=== PATIENT | male | born 1950 | race Caucasian/White ===

== ENCOUNTER 2024-09-06 11:50 | Outpatient (CLI) | payer MEDICARE, BC, SELFPAY ==
--- OUTSIDE RECORDS SUMMARY | 2024-09-06 13:48 | XMS_ITS | Encounter Summary ---
Author Organization [facility] Address [facility] [place] [address] Care Team Providers Care Audio Visual Director Name Role Phone Gerald Bell MD, Robert Unavailable [phone] Trudi Carr ANP- Unavailable [phone] Mini Martell MD Unavailable [phone] Stephanie Connolly PIGMENT PRESSER Primary Care Provider [phone] Encounter Details Date Type Department Care Team (Late st Contact Info) Description 08/06/2023 MyCSosht Message Enc [facility] hospital [address] [place], [place] [phone] Stephanie Connolly FNP [address] [place], [place] [id number] Medication Social History Tobacco Use Types Packs/Day Years Used Date Smoking Tobacco: Never Smokeless Tobacco: Never Comments:Provider to financial counselor Alcohol Use Standard Drinks/Week Comments Yes 0 (1 standard drink = 0.6 oz pur e alcohol) maybe 1 per week Humiliation, Afraid, Rape, and Kick questionnair e Answer Date Recorded Fear of Current or Ex-Partner No Emotionally Abused No 07/26/2019 Physically Abused No 07/26/2019 Sexually Abused No 07/26/2019 Social Connection and Isolat ion Panel [NHANES] Answer Date Recorded Frequency of Communication w ith Friends and Family More than three times a week 07/26/2019 Frequency of Social Gatherin gs with Friends and Family Once a week 07/26/2019 Attends Restoration Services Never 07/25 Active Member of Clubs or Organizations No 07/26/2019 Attends Club or Organization Meetings Never 07/26/2019 Marital Status 07/26/2019 Overall Financial Resource Strain (CARDIA) Answe r Date Recorded Difficulty of Paying Living Expenses Not hard at all 07/26/2019 PHQ-2 Answer Date Recorded Patient Health Questionnaire-2 Score 0 12/26/2022 [facility] of Occupat ional Health - Occupational Stress Questionnaire Answer Date Recorded Feeling of Stress Not at all 07/26/2019 Exercise Vital Sign Answer Date Recorde d Days of Exercise per Week 2 days 2019 Minutes of Exercise per Session 30 min 07/26/2019 Hunger Vital Sign Answer Date Recorded Worried About Running Out of Food in the Last Ye ar Never true 07/26/2019 Ran Out of Food in the Last Year Not on file 07/26/2019 PRAPARE - Transportation Answer Date Re corded Lack of Transportation (Medical) No 07/26/2019 Lack of Transportation (Non-Medical) Not on file 07/26/2019 Sex and Gender Information Value Date Recorded Sex Assigned at Male 05/26/2024 9:59 AM CONCESSION SUPERVISOR Legal Sex Male 8:35 PM CDT Gender Identity Male 07/26/2019 3:08 PM CDT Sexual Orientation Straight 07/26/2019 3: 08 PM CDT Occupation Industry Job Start Date Job End Date Retired Not on file Not on file Not on file documented as of this encounter Functional Status * RETIRED Are you deaf or do you have serious difficulty hearing Answer Date of Assessment Author Status No 08/11/2019 2:39 PM CDT Activ e * RETIRED Are you blind or do you have serious difficulty seeing, even when wearing glasses? Answer Date of Assessment Author Status No 08/11/2019 2:39 PM CDT Activ e * Do you have serious difficulty walking or climbing stairs? Answer Date of Assessment Author Status No 08/11/2019 2:39 PM CDT Shelly Mathias RN Active * Do you have difficulty dressing or bathing? Answer Date of Assessment Author Status No 08/11/2019 2:39 PM REINAT Shelly Mathias RN Active * Because of a physical, mental, or emotional condition, do you have difficulty doing errands alone such as visiting a doctor's office or shopping? Answer Date of Assessment Author Status No 08/11/2019 2:39 PM CDT Shelly Mathias RN Active documented as of this encounter Mental Status * Because of a physical, mental, or emotional condition, do you have serious difficulty concentrating, remembering, or making decisions? Answer Entry Date Author Status No 08/11/2019 2:39 PM CDT Shelly Mathias RN Active documented in this encounter Progress Notes * MOSHE Blanchard - 08/06/2023 12:06 PM CDT They do not raise BS levels * Ranjana Yap LPN - 08/06/2023 12:01 PM CDT Please review/advise. * MOSHE Blanchard - 08/06/2023 10:28 AM CDT Doxepin causes increased glucose. Why was this rx for him and who gave it to him. * Ranjana Yap LPN - 08/06/2023 10:16 AM CDT Please review/advise. documented in this encounter Plan of Treatment Upcoming Encounters Date Type Department Care Team (Late st Contact Info) Description 09/14/2024 9:20 AM CDT Office Visit [address] [place], [place] [phone] Stephanie Connolly FNP [address] [place] [address] [place] [address] 01/05/2025 12:40 PM CDT Office Visit [facility] [place] [address] [place] [phone] Mini Martell MD [address] [place] [address] 09/05/2025 10:30 AM CDT Office Visit [facility] [address] [facility] [place] [phone] Trudi Carr, ANP-BC [address] [facility] [address] [place] [address] documented as of this encounter Goals Goal Patient Goal Type Associated Problems Recent Progress Patient-Stated? Author Return home with General No Peggy Kellogg, DORMITORY SUPERVISOR Return home with General No Peggy Kellogg, DORMITORY SUPERVISOR documented as of this encounter Visit Diagnoses Not on filedocumented in this encounter Additional Health Concerns Assessment Noted Time PHQ-9 Depression Total Score: 1 12/27/19 21 11:31 AM CDT documented as of this encounter Care Teams Audio Visual Director Relationship Specialty Start Date End Date Stephanie Connolly FNP [address] [place] [address] PCP - General NURSE PRACTITIONER 01/05/18 Guanakito Duarte MD [place] Chute Tapper CARDIOVASCULAR DISEASE 01/15/17 Trudi Carr, ANP-BC [address] [facility] [address] [place] [address] NURSE PRACTITIONER 01/15/17 Mini Martell MD [address] [place] [address] NEPHROLOGY 04/16/17 documented as of this encounter
--- OUTSIDE RECORDS SUMMARY | 2024-09-06 13:48 | XMS_ITS | Encounter Summary ---
Author Organization [facility] Address [facility] [place] [address] Care Team Providers Care Traffic Assistant Name Role Phone Gerald Bell MD, Robert Unavailable [phone] Trudi Carr ANP- Unavailable [phone] Mini Martell MD Unavailable [phone] Stephanie Connolly CONCRETE VIBRATOR OPERATOR Primary Care Provider [phone] Encounter Details Date Type Department Care Team (Late st Contact Info) Description 10/27/2018 Hospital Follow-up Call [facility] Med/Surg [address] [place] [address] Stephanie Qiu, RN Social History Tobacco Use Types Packs/Day Years Used Date Smoking Tobacco: Never Smokeless Tobacco: Never Alcohol Use Standard Drinks/Week Comments Yes 1.7 (1 standard drink = 0.6 oz p ure alcohol) 1-2 drinks weekly Sex and Gender Information Value Date Recorded Sex Assigned at Male 05/26/2024 9:59 AM TIMBER ROBBER Legal Sex Male 8:35 PM CDT Gender [...] Answer Date of Assessment Author Status No 10/22/2018 7:51 PM CDT Activ e * RETIRED Are you blind or do you have serious difficulty seeing, even when wearing glasses? Answer Date of Assessment Author Status No 10/22/2018 7:51 PM CDT Activ e * Do you have serious difficulty walking or climbing stairs? Answer Date of Assessment Author Status No 10/22/2018 7:51 PM REINAT Shelly Mathias RN Active * Do you have difficulty dressing or bathing? Answer Date of Assessment Author Status No 10/22/2018 1:45 PM Shelly Maier RN Active * Because of a physical, mental, or emotional condition, do you have difficulty doing errands alone such as visiting a doctor's office or shopping? Answer Date of Assessment Author Status No 10/22/2018 7:51 PM Shelly Maier RN Active documented as of this encounter Mental Status * Because of a physical, mental, or emotional condition, do you have serious difficulty concentrating, remembering, or making decisions? Answer Entry Date Author Status No 10/22/2018 7:51 PM Shelly Maier RN Active documented in this encounter Plan of Treatment Upcoming Encounters Date Type Department Care Team (Late st Contact Info) Description 09/14/2024 9:20 AM CDT Office Visit [facility] [address] [facility] [place] [address] Stephanie Connolly, [facility] [address] [place] [address] 01/05/2025 12:40 PM CDT Office Visit [facility] [address] [phone] Mini Martell MD [address] [place] [address], [address] [address] 09/05/2025 10:30 AM CDT Office Visit [facility] [place] [address] Trudi Carr, ANP- [address] [facility] [address] [address] documented as of this encounter Visit Diagnoses Not on filedocumented in this encounter Care Teams Traffic Assistant Relationship Specialty Start Date End Date Stephanie Connolly FNP [address] [place] [address] PCP - General NURSE PRACTITIONER 01/05/18 Guanakito Duarte MD [place] Gis Web Developer CARDIOVASCULAR DISEASE 01/15/17 Trudi Carr, [facility]- [address] [place] [address] [address] [place] [phone] NURSE PRACTITIONER 01/15/17 Mini Martell MD [address] [place] [address] NEPHROLOGY 04/16/17 documented as of this encounter
--- OUTSIDE RECORDS SUMMARY | 2024-09-06 13:48 | XMS_ITS | Encounter Summary ---
Author Organization [facility] Address [address] [place] [address] Care Team Providers Care Clerical Methods Analyst Name Role Phone Gerald Bell MD, Robert Unavailable [phone] Trudi Carr Unavailable Mini Martell MD Unavailable [phone] Stephanie Connolly RAW PRODUCTS DIRECTOR Primary Care Provider [phone] Reason for Visit * Reason Onset Date Comments Forms 09/06/2024 Encounter Details Date Type Department Care Team ([facility] st Contact Info) Description 09/06/2024 Telephone [facility] [address] [place] [address] Trudi Carr ANP-BC [address] [facility] [address] [place] [address] Forms Social History Tobacco Use Types Packs/Day Years Used Date Smoking Tobacco: Never Smokeless Tobacco: Never Comments:Provider to educational guidance counselor Alcohol Use Standard Drinks/Week Comments Not Currently 0 (1 standard drink = 0.6 oz [...] and Family Once a week 07/26/2019 Attends Confucianist Services Never 07/25 Active Member of Clubs or Organizations No 07/26/2019 Attends Club or Organization Meetings Never 07/26/2019 Marital Status 07/26/2019 Overall Financial Resource Strain (CARDIA) Answe r Date Recorded Difficulty of Paying Living Expenses Not hard at all 07/26/2019 PHQ-2 Answer Date Recorded Patient Health Questionnaire-2 Score 0 03/03/2024 [facility] of Occupat ional Health - Occupational Stress [...] Sex Assigned at Male 05/26/2024 9:59 AM SLEEVE SETTER LOCKSTITCH Legal Sex Male 8:35 PM CDT Gender [...] Assessment Author Status No 08/11/2019 2:39 PM Shelly Maier RN Active * Because of a physical, mental, or emotional condition, do you have difficulty doing errands alone such as visiting a doctor's office or shopping? Answer Date of Assessment Author Status No 08/11/2019 2:39 PM Shelly Maier RN Active documented as of this encounter Mental Status * Because of a physical, mental, or emotional condition, do you have serious difficulty concentrating, remembering, or making decisions? Answer Entry Date Author Status No 08/11/2019 2:39 PM Shelly Maier RN Active documented in this encounter Progress Notes * Peggy Mckeon LPN - 09/06/2024 1:43 PM CDT Faxed to [phone]. No confirmation yet, faxed x 2. * Farheen Vyas - 09/06/2024 1:22 PM CDT [facility] called back and she gave me a different fax number of [phone], I told her I would give this to the nurse. * Farheen Vyas - 09/06/2024 12:28 PM CDT I called [facility] and left a message asking to call us back with a different fax number as the one gave to us is not working. * Peggy Mckeon LPN - 09/06/2024 11:18 AM CDT I have faxed this AM multiple times to [phone] per [place] fax cover sheet. This fax number does not work. I called and their automated VM system gives the same fax number as above. I called [phone] and left a voice message for someone to call me back with a fax number that will work. * Farheen Vyas - 09/06/2024 10:41 AM CDT [facility] called wanting to know if we have received the forms for the pt to have surgery next week, I told her that I didn't see anything faxed in and to refax it to [phone] and she understood. documented in this encounter Plan of Treatment Upcoming Encounters Date Type Department Care Team (Late st Contact Info) Description 09/14/2024 9:20 AM CDT Office Visit [address] [place] [address] Stephanie Connolly, [address] [place], [place] [phone] 01/05/2025 12:40 PM CDT Office Visit [facility] [address] [address] Mini Martell MD [address] [place] [address] 09/05/2025 10:30 AM CDT Office Visit [facility] [place] [phone] Trudi Carr, ANP- [address] [facility] [address] [phone] documented as of this encounter Goals Goal Patient Goal Type Associated Problems Recent Progress Patient-Stated? Author Return home with General No Peggy Kellogg MSW Return home with General No Peggy Kellogg MSW documented as of this encounter Visit Diagnoses Not on filedocumented in this encounter Additional Health Concerns Assessment Noted Time PHQ-9 Depression Total Score: 0 03/03/20 24 10:54 AM CDT documented as of this encounter Care Teams Clerical Methods Analyst Relationship Specialty Start Date End Date Stephanie Connolly FNP [address] [place] [address] PCP - General NURSE PRACTITIONER 01/05/18 Guanakito Duarte MD [place] Taste Tester CARDIOVASCULAR DISEASE 01/15/17 Trudi Carr, [facility]- [address] [place] [address] [address] [place] [address] NURSE PRACTITIONER 01/15/17 Mini Martell MD [address] [place] [address] NEPHROLOGY 04/16/17 documented as of this encounter
--- OUTSIDE RECORDS SUMMARY | 2024-09-06 13:48 | XMS_ITS | Encounter Summary ---
Author Organization [facility] Address [address] [place] [address] Care Team Providers Care Account Services Analyst Name Role Phone Gerald Bell MD, Robert Unavailable [phone] Trudi Carr Unavailable [phone] Mini Martell MD Unavailable [phone] Stephanie Connolly LOFTER Primary Care Provider [phone] Reason for Visit * Reason Onset Date Comments Record Request 09/06/2024 Encounter Details Date Type Department Care Team ([facility] st Contact Info) Description 09/06/2024 Telephone [facility] [address] [place] [address] Trudi Carr ANP-BC [address] [facility] [address] [place] [address] Record Request Social History Tobacco Use Types Packs/Day Years Used Date Smoking Tobacco: Never Smokeless Tobacco: Never Comments:Provider to school counsellor Alcohol Use Standard Drinks/Week Comments Not Currently [...] and Family Once a week 07/26/2019 Attends Tenriism Services Never 07/25 Active Member of Clubs or Organizations No 07/26/2019 Attends Club or Organization Meetings Never 07/26/2019 Marital Status 07/26/2019 Overall Financial Resource Strain (CARDIA) Answe r Date Recorded Difficulty of Paying Living Expenses Not hard at all 07/26/2019 PHQ-2 Answer Date Recorded Patient Health Questionnaire-2 Score 0 03/03/2024 [facility] of Occupat ional Health - Occupational Stress [...] Sex Assigned at Male 05/26/2024 9:59 AM MORTGAGE LOAN REVIEWER Legal Sex Male 8:35 PM CDT Gender [...] PM CDT Shelly Mathias RN Active * Because of [...] documented in this encounter Progress Notes * Farheen Vyas - 09/06/2024 1:32 PM CDT [facility]ressa [facility]/ [facility] called wanting to know if I could fax over the pts EKG to [phone], EKG has been faxed. documented in this encounter Plan of Treatment Upcoming Encounters Date Type Department Care Team (Late st Contact Info) Description 09/14/2024 9:20 AM CDT Office Visit [facility] of [facility] [address] [facility] [place] [address] Stephanie Connolly, [address] [place] [address] 01/05/2025 12:40 PM CDT Office Visit [facility] [address] [phone] Mini Martell MD [address] [place] [address], [address] [address] 09/05/2025 10:30 AM CDT Office Visit [facility] [place] [phone] Trudi Carr, ANP- [address] [facility] [address] [place] [phone] documented as of this encounter Goals Goal Patient Goal Type Associated Problems Recent Progress Patient-Stated? Author Return home with General No Bess Peggy M, THERMO CEMENTING FOLDER OPERATOR Return home with General No StephendanePeggy, THERMO CEMENTING FOLDER OPERATOR documented as of this encounter Visit Diagnoses Not on filedocumented in this encounter Additional Health Concerns Assessment Noted Time PHQ-9 Depression Total Score: 0 03/03/20 10:54 AM CDT documented as of this encounter Care Teams Account Services Analyst Relationship Specialty Start Date End Date Stephanie Connolly FNP [address] [place], [place] [phone] PCP - General NURSE PRACTITIONER 01/05/18 Guanakito Duarte MD [place] Car Dumper CARDIOVASCULAR DISEASE 01/15/17 Trudi Carr, ANP- [address] [place] [address] [address] [place] [address] NURSE PRACTITIONER 01/15/17 Mini Martell MD [address] [place] [address] NEPHROLOGY 04/16/17 documented as of this encounter
--- OUTSIDE RECORDS SUMMARY | 2024-09-06 13:48 | XMS_ITS | Encounter Summary ---
Author Organization [facility] Address [facility] [place] [address] Care Team Providers Care Air Cargo Specialist Name Role Phone Gerald Bell MD, Robert Unavailable [phone] Trudi Carr [facility]- Unavailable [phone] Mini Martell MD Unavailable [phone] Stephanie Connolly PHARMACY RESOURCE TECH Primary Care Provider [phone] Encounter Details Date Type Department Care Team (Late st Contact Info) Description 10/16/2018 Prep for Procedure [facility] [id number] [place] [address] [place] [address] [facility] [place], [facility] [address] [place] [address] Social History Tobacco Use Types Packs/Day Years Used Date Smoking Tobacco: Never Smokeless Tobacco: Never Alcohol Use Standard Drinks/Week Comments Yes 1.7 (1 standard drink = 0.6 oz p ure alcohol) 1-2 drinks weekly Sex and Gender Information Value Date Recorded Sex Assigned at Male 05/26/2024 9:59 AM CEO NA Legal Sex Male 8:35 PM CDT Gender Identity Male 07/26/2019 3:08 PM CDT Sexual Orientation Straight 07/26/2019 3: 08 PM CDT Occupation Industry Job Start Date Job End Date Retired Not on file Not on file Not on file documented as of this encounter Plan of Treatment Upcoming Encounters Date Type Department Care Team (Late st Contact Info) Description 09/14/2024 9:20 AM CDT Office Visit [facility] [address] [place] [address] Stephanie Connolly, [facility] [address] [place] [address] 01/05/2025 12:40 PM CDT Office Visit [facility] [address] [address] Mini Martell MD [address] [facility], [address] [address] 09/05/2025 10:30 AM CDT [facility] [address] [place] [phone] Trudi Carr, [facility]- [address] [facility] [address] [place] [address] documented as of this encounter Results * ECG 12-Lead (07/20/2019 12:10 PM CDT) 07/20/2019 12:1 0 PM CDT Narrative [facility] RAD - 07/21/2019 8:07 AM CDT [facility] Test Date: 2019-07-20 Pat Name: KARTHIK SPENCE Department: Room: Gender: Male Diesel Mechanic: : 1950 Requested By: DWAYNE OLVERA Order Number: [id number] Reading MD: Guanakito Palencia Measurements Intervals [place] Rate: 80 P: CO: 0 QRS: -23 QRSD: 90 T: 30 QT: 390 QTc: 453 Interpretive Statements ATRIAL FIBRILLATION BORDERLINE LEFT AXIS DEVIATION [QRS AXIS < -20] NONSPECIFIC T-WAVE ABNORMALITY ABNORMAL RHYTHM ECG Compared to ECG 10/26/2018 13:58:32 Ventricular premature complex(es) no longer present Aberrant conduction of supraventricular beat(s) no longer present T-wave abnormality still present Procedure Note Guanakito Palencia MD - 07/21/2019 [facility] Test Date: 2019-07-20 Pat Name: KARTHIK SPENCE Department: Room: Gender: Male Diesel Mechanic: : 1950 Requested By: DWAYNE OLVERA Order Number: [id number] Reading MD: Guanakito Palencia Measurements Intervals [place] Rate: 80 P: CO: 0 QRS: -23 QRSD: 90 T: 30 QT: 390 QTc: 453 Interpretive Statements ATRIAL FIBRILLATION BORDERLINE LEFT AXIS DEVIATION [QRS AXIS < -20] NONSPECIFIC T-WAVE ABNORMALITY ABNORMAL RHYTHM ECG Compared to ECG 10/26/2018 13:58:32 Ventricular premature complex(es) no longer present Aberrant conduction of supraventricular beat(s) no longer present T-wave abnormality still present us Dwayne Olvera MD ECG ORDERABLES Final Result Performing Organization Address [facility] Co de Phone Number [facility] * MRSA SCREENING (07/20/2019 11:05 AM CDT) SPEC DESCRIPTION NASAL 07/20/2019 10:56 AM CDT [facility] SPECIAL REQUESTS NO SPECIAL REQUEST 07/20/2019 10:56 AM CDT [facility] CULTURE RESULT NO METHICILLIN RESISTANT STAPH AUREUS ISOLATED 07/27/2019 7:26 AM CDT [facility] SPECIMEN FROM INTERNAL NOSE / Unknown 07/20/2019 11:05 AM CDT 07/20/2019 11:06 AM CDT us Dwayne Olvera MD MICROBIOLOGY - GENERAL ORDERABLE S Final Result Performing Organization Address [facility]/ZIP Co de Phone Number [facility] [address] [place] [address], documented in this encounter Visit Diagnoses Diagnosis Preop testing- Primary Preoperative examination, unspecified Preop testing Preoperative examination, unspecified documented in this encounter Care Teams Air Cargo Specialist Relationship Specialty Start Date End Date Stephanie Connolly FNP [address] [place] [phone] PCP - General NURSE PRACTITIONER 01/05/18 Guanakito Duarte MD [place] Mixing Operator CARDIOVASCULAR DISEASE 01/15/17 Trudi Carr, [facility]- [address] [place] [address] [address] [place] [address] NURSE PRACTITIONER 01/15/17 Mini Martell MD [address] [place] [address] NEPHROLOGY 04/16/17 documented as of this encounter
--- OUTSIDE RECORDS SUMMARY | 2024-09-06 13:48 | XMS_ITS | Encounter Summary ---
Author Organization [facility] Address [facility] [place] [address] Care Team Providers Care Steam Trap Man Name Role Phone Gerald Bell MD, Robert Unavailable [phone] Trudi Carr ANP- Unavailable [phone] Mini Martell MD Unavailable [phone] Stephanie Connolly GRADUATE STUDENT INSTRUCTOR Primary Care Provider [phone] Encounter Details Date Type Department Care Team (Latest Contact Info) Description 01/08/2024 MyChart Message Enc [facility] [address] [address] Wisam Hubbard MD [address] [place] [address] Lab service for polyp testing Social History Tobacco Use Types Packs/Day Years Used Date Smoking Tobacco: Never Smokeless Tobacco: Never 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 Alcohol Use Standard Drinks/Week Comments Yes [...] and Family Once a week 07/26/2019 Attends Anabaptism Services Never 07/25 Active Member of Clubs or Organizations No 07/26/2019 Attends Club or Organization Meetings Never 07/26/2019 Marital Status 07/26/2019 Overall Financial Resource Strain (CARDIA) Answe r Date Recorded Difficulty of Paying Living Expenses Not hard at all 07/26/2019 PHQ-2 Answer Date Recorded Patient Health Questionnaire-2 Score 0 12/30/2023 [facility] - Occupational Stress [...] Sex Assigned at Male 05/26/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 Sex Male 8:35 PM CDT Gender [...] Author Status No 08/11/2019 2:39 PM REINAT Stew, Shelly L, RN Active * Because of a physical, [...] Mathias RN Active documented in this encounter Plan of Treatment Upcoming Encounters Date Type Department Care Team (Late st Contact Info) Description 09/14/2024 9:20 AM CDT Office Visit [facility] [address] [facility] [address] [place], [place] [phone] Stephanie Connolly, [address] [place] [address] 01/05/2025 12:40 PM CDT Office Visit [facility] [address] [phone] Mini Martell MD [address] [place] [id number] 09/05/2025 10:30 AM CDT Office Visit [facility] [place] [address] Trudi Carr, ANP- [address] [place] [phone] documented as of this encounter Goals Goal [...] documented as of this encounter Care Teams Steam Trap Man Relationship Specialty Start Date End Date Stephanie Connolly FNP [address] [place] [address] PCP - General NURSE PRACTITIONER 01/05/18 Guanakito [place]arte MD [place] [facility] Clerk CARDIOVASCULAR DISEASE 01/15/17 Trudi Carr, [facility]- [address] [facility] [address] [place] [phone] NURSE PRACTITIONER 01/15/17 Mini Martell MD [address] [place] [address] NEPHROLOGY 04/16/17 documented as of this encounter
--- OUTSIDE RECORDS SUMMARY | 2024-09-06 13:48 | XMS_ITS | Continuity of Care Document ---
Author Organization [facility] Address [address] [place] [address] Phone Care Team Providers Care Wafer Abrading Machine Tender Name Role Phone Denis Rouse MD Unavailable Unavailable Allergies, Adverse Reactions, Alerts Substance Reaction Status Criticality No Known Allergies Active No Inform ation Medications Medication Instructions Dosage Effective Dates (start - stop) Status Comments diclofenac 0.1 % eye drops Instill 1 drop in the operated eye TID x 4 weeks - Active prednisolone acetate 1 % eye drops,suspension instill 1 drop in the operated eye QID x 1 week, TIDx 1 week, BID x 1 week then Qday x 1 week then stop - Active amlodipine 10 mg tablet - Active allopurinol 100 mg tablet - Active aspirin 81 mg tablet,delayed release - Active diltiazem ER 120 mg capsule,extended release - Active furosemide 40 mg tablet - Active glyburide micronized 3 mg tablet - Active losartan 50 mg tablet - Active metformin 500 mg tablet - Active Nephrocaps 1 mg capsule - Active Ocuvite 150 mg-30 unit-5 mg-150 mg capsule - Active omega-3 acid ethyl esters 1 gram capsule - Active pravastatin 40 mg tablet - Active Vigamox 0.5 % eye drops Instill 1 drop in the operated eye QID x 1 week, and then TID until bottle runs out - No Longer Active Procedures Procedure Date No Charge Refraction Post-op Follow-up Visit Post-op Follow-up Visit Remove Cataract, Post Op Care 7 Remove Cataract, Insert Lens,Comanaged F IOLMaster-Professional No Charge Refraction Post-op Follow-up Visit Post-op Follow-up Visit Remove Cataract, Post Op Care 6 Remove Cataract, Insert Lens,Comanaged D IOLMaster-Professional No Charge Refraction IOLMaster-Technical Office/outpatient Visit, Est No Charge Refraction Eye Exam, New Patient Advance Directives Directive Yes / No Effective Date File Name No Information Encounters Encounter Description Practice Location Reason(s) For Visit Diagnoses Date Provider Providers Copied on Encounter [facility], [address] [place] [address] [address], [place], [place], [id number], tel:[phone] SEC [place] Professional 1 month post op (chief complaint) Surgery follow-up examination 7 Nasim Barrios. [address], [facility] [address], [place], [place], [address], [place]. tel:[phone] [facility], [address] [place] [address] [address], [place], [place], [address], [place] tel:[phone] SEC [place] Professional 1 wk CAT PO (chief complaint) Surgery follow-up examination 7 Nasim Barrios. [address], [address], [place], [place], [address], [place]. tel:[phone] [facility], [address], [place], [place], [address], [place] tel:[phone] [place] Professional Post-Op (chief complaint) No Information 7 Joselyn Palafox. [address], [address], [place], [place], [address], [place]. tel:[phone] Referring Provider: Denis Bernal, [address], [place], [address] . tel:[phone] [facility], [address], [place], [place], [address], [place] tel:[phone] [facility] No Information 7 Nasim Brarios. [address], [place], [address], [place]. tel:[phone] Referring Provider: Denis Bernal, [address], [place], [address] . tel:[phone] [facility], [address], [place], [place], [address], [place] tel:[phone] SEC Spencer [address] No Information 7 Nasim Barrios. [address], [place], [address], [place]. tel:[phone] [facility], [address], [place], [place], [address], [place] tel:[phone] SEC Bimal [address] No Information 0 7 Nasim Barrios. [address], [place], [address], [place]. tel:[phone] [facility], [address], [place], [place], [address], [place] tel:[phone] SEC Amrit MCKEON Professional 1 month post op (chief complaint) No Information 7 Nasim Barrios. [address], [place], [address], [place]. tel:[phone] [facility], [address], [place], [place], [address], tel:[phone] SEC [place] Professional 1 wk PO (chief complaint) No Information 7 Joselyn Palafox. [address], [place], [place], [address], . tel:[phone] Referring Provider: Denis Bernal, [address], [place], [address] . tel:[phone] [facility], [address], [place], [place], [address], tel:[phone] SEC Amrit [place] Professional 1 day PO PCIOL (chief complaint) No Information 6 Nasim Barrios. [address], [place], [address], . tel:[phone] Referring Provider: Denis Bernal, [address], [place], [address] . tel:[phone] [facility], [address], [place], [place], [address], [place] tel:[phone] [facility] No Information 6 Nasim Barrios. [address], [place], [address], . tel:[phone] Referring Provider: Denis Bernal, [address] [place] [place], [address] . tel:[phone] [facility], [address], [place], [place], [address], [place] tel:[phone] SEC Spencer N Ty No Information 6 Nasim Barrios. [address], [place], [address], [place]. tel:[phone] Office/outpat ient Visit, Est [facility], [address], [place], [place], [address], [place] tel:[phone] SEC [place] Professional Cataract evaluation (chief complaint) No Information 6 Nasim Barrios. [address], [place], [address], [place]. tel:[phone] Referring Provider: Denis Bernal, [address], [place], [address] . tel:[phone] [facility], [address], [place], [place], [address], [place] tel:[phone] SEC [place] Professional blurry vision (chief complaint) No Information 6 Nasim Barrios. [address], [facility] [place], [address], [place]. tel:[phone] [facility], [address], [place], [place], [address], [place] tel:[phone] SEC Bimal Crawford No Information 6 Nasim Barrios. [address], [place], [address], [place]. tel:[phone] Family History Family Member Type Diagnosis Age At Onset Problem (finding) Family history of Diabe hailee mellitus Sister Problem (finding) crossed eyes Payers Payer name Insurance type Covered green party ID Authoriza tion(s) No Information Social History Type Description Quantity Date Captured Comments Alcohol Use Details Caffeine Use Details 2 cups per day Tobacco Use Status No Information Smoking Status Never smoker Sex Male Chief Complaint And Reason For Visit From encounter dated '07/19/2016 10:15'. 1 month post op (chief complaint). Description: The 66 year old male presents for 1 month post op in the left eye. Pt states he is not having any problems. Pt is currently using Diclofenac TID OS, and Pred QD OS. Pt denies use of eye drops OD. Reason For Referral Reason For Referral No Information History Of Present Illness Encounter Date Complaint History Of Prese nt Illness 1 month post op The 66 year old male presents for 1 month post op in the left eye. Pt states he is not having any problems. Pt is currently using Diclofenac TID OS, and Pred QD OS. Pt denies use of eye drops OD. 1 wk CAT PO The 66 year old male presents for 1 wk CAT PO in the left eye. Pt has Hx of PCIOL OU, Hypertension, and DM type 2. Pt currently using Pred TID, Vigamox QID, and Diclofenec TID. PO instructions were explained and understood by pt. Pt reports no pain, irritation, or discomfort OU. Pt reports his BS was 222 yesterday. Post-Op The 66 year old male presents for a 1 day post op CE OS. Patient is using Pred qid, Vigamox qid OS and Diclofenac tid OS. Patient denies any pain or discomfort. 1 month post op The 66 year old male presents for 1 month post op in the right eye. CE OD 05-07-16. Pt reports no problems with vision OD other than slight glare. Pt stopped using post op drops yesterday. Pt would like to proceed with CE OS due to glare and decreased vision. 1 wk PO The 66 year old male presents for 1 wk PO in the right eye. Pt using Vig, PF1%, and Diclo OD TID. Pt is NIDDM II. Pt states no VA, pain, or discomfort complaints. 1 day PO PCIOL The 66 year old male presents for 1 day PO PCIOL in the right eye. DM II NID BS 270 this AM. Pt using Vigamox and Pred QID OD and Diclo TID OD. Pt states OD seems to be doin gok. States no pain, irritation or discomfort OD Cataract evaluation The 65 year old male presents for Cataract evaluation ou per Dr. Hughes. Patient c/o hard to focus with OD and c/o decreased vision OD. Patient is a DM and BS was 177. blurry vision The 65 year old male presents for a cataract evaluation per Dr. Hughes. Patient c/o blurry vision OD. Patient states OD seems a little different then OS. Patient is a Type II diabetic and BS was 153 yesterday. Functional Status Date Functional Assessmen t No Information Instructions Date Instruction Bro jones Impression/Plan - 1 month s/p Phaco IOL OS:- Patient has healed well.- All post operative medications are finished.- Vision is good and IOP is stable.- Patient will return to Jairon Hughes OD for updated glasses and regularly scheduled visits. Follow up - Return t o Jairon Hughes OD for regularly scheduled visits Impression/Plan - On e week PO s/p Phaco with IOL OS:- IOL in good position; healing well.- Patient advised they no longer need to wear the shield over the eye at bedtime.- Medication instillation and post op instructions reviewed.- Patient will return in 3 weeks or sooner with problems. Follow up - Return to clinic as scheduled as scheduled Related to Surge ry follow-up examination Impression/Plan - 1 day post op Phaco with PCIOL OS, discussed post op instructions and medication use. Return to clinic as scheduled Related to Surgery follow-up examination Follow up - as scheduled Related to Surgery follow-up examination Follow up - Proceed with OS CE as scheduled Impression/Plan - 1 month s/p Phaco IOL OD. Patient has healed well. All post operative medications are finished. Vision is good and IOP is stable. Patient elects to proceed with OS CE as scheduled. Impression/Plan - Go od post op results after CE OD. Continue post op drops as instructed. Pt reports trauma to OD several years ago. Patient states OD has always been blurred. Pt aware he might have more glare with OD due to scar. Return to clinic as scheduled or sooner with any problems. Follow up - as scheduled Impression/Plan - On e Day Post Op s/p Phaco with IOL OD in good position. Patient healing well. Medication instillation, shield use and restrictions reviewed with patient. Return to clinic as scheduled or sooner with problems. Follow up - Return to clinic as scheduled Impression/Plan - Ca taract OD>OS accounts for patient's visual complaints. Discussed all risks, benefits and alternatives pertaining to cataract surgery. The procedure and recovery from cataract extraction were discussed. Recommend phacoemulsification with intraocular lens implant. Lifestyle lens options discussed. Explained due to previous ocular injury with corneal scar OD patient is not a good candidate for a premium IOL. Astigmatism OD is likely related to corneal scar and is likely irregular. The possibility that patient may still need to wear glasses to correct astigmatism and/or for reading vision following surgery reviewed and understood by patient. 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 Ocular and systemic benefits of good blood sugar control discussed with patient. Cataracts OU (OD>OS) - Discussed the cataract in both eyes with patient. Patient states the vision was recently decreased OD when he saw Dr. Hughes in clinic. However, the patient states that he had recently had the flu and as a result his blood glucose was very low and then very high. Now that he is feeling better and glucose is stabilized the patient states that his vision is back to normal. He does have decreased vision on glare testing OD today that would qualify the patient for cataract surgery whenever he is ready. The patient elects to wait on cataract surgery at this time. Patient will return to Dr. Hughes for regularly scheduled visits and may return here for repeat evaluation at any time. Follow up - Return to Jairon grace OD Assessments Type Assessment Date assessment Surgery follow-up examination Emiliano Patient Care Teams Name Effective Dates (start - stop) Status Members No Information
--- OUTSIDE RECORDS SUMMARY | 2024-09-06 13:48 | XMS_ITS | Encounter Summary ---
Author Organization [facility] Address [facility] [place] [address] Care Team Providers Care Digital Imaging Technician Name Role Phone Gerald Bell MD, Robert Unavailable [phone] Trudi Carr [facility]- Unavailable [phone] Mini Martell MD Unavailable [phone] Stephanie Connolly [employer] Primary Care Provider [phone] Encounter Details Date Type Department Care Team (Late st Contact Info) Description 10/16/2018 Pre-Procedure Call [facility] [address] [place] [address] [place] [address] [facility] [address] [place] [address] Social History Tobacco Use Types Packs/Day Years Used Date Smoking Tobacco: Never Smokeless Tobacco: Never Alcohol Use Standard Drinks/Week Comments Yes 1.7 (1 standard drink = 0.6 oz p ure alcohol) 1-2 drinks weekly Sex and Gender Information Value Date Recorded Sex Assigned at Male 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/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 Sex Male 8:35 PM CDT [...] Description 09/14/2024 9:20 AM CDT Office Visit [facility] [address] [place] [address] Stephanie Connolly FNP [address] [place] [address] 01/05/2025 12:40 PM CDT Office Visit [facility] [address] [phone] Mini Martell MD [address] [place] [id number] 09/05/2025 10:30 AM CDT Office Visit [facility] [address] [phone] Trudi Carr ANP-BC [address] [place] [phone] documented as of this encounter Visit Diagnoses Not on filedocumented in this encounter Care Teams Digital Imaging Technician Relationship Specialty Start Date End Date Stephanie Connolly FNP [address] [facility] [place] [address] PCP - General NURSE PRACTITIONER 01/05/18 Guanakito Duarte MD [employer] Counter Clerk CARDIOVASCULAR DISEASE 01/15/17 Trudi Carr ANP-BC [address] [place] [phone] NURSE PRACTITIONER 01/15/17 Mini Martell MD [address] [place] [id number] NEPHROLOGY 04/16/17 documented as of this encounter
--- OUTSIDE RECORDS SUMMARY | 2024-09-06 13:48 | XMS_ITS | Clinical Summary ---
Author Organization [facility] Address [facility] [place] [address] Care Team Providers Care Diagnostic Sales Specialist Name Role Phone Gerald Bell MD, Robert Unavailable [phone] Trudi Carr ANP- Unavailable [phone] Mini Martell MD Unavailable [phone] Stephanie Connolly PHOTOENGRAVING PROOFER APPRENTICE Primary Care Provider [phone] Allergies No known active allergies Medications B-D ULTRA-FINE 33 LANCETS MiscIndications: Type 2 diabetes mellitus with stage 3 chronic kidney disease, without long-term current use of insulin ([facility]) lancets 33 gauge miscellaneous miscuse as directed to test blood sugars BID; Diagnosis: DM type II; 250.00 200 each 2 022 Active Glucose Blood test stripIndications :Type 2 diabetes mellitus with stage 3 chronic kidney disease, without long-term current use of insulin, unspecified whether stage 3a or 3b CKD ([facility]) 1 strip by Other route 2 (two) times daily. Use to check blood sugar 2 times a day. DX: E11.9 200 strip 2 022 Active Vitamin D3 (VITAMIN D) 50 mcg tablet Take 1 tablet (50 mcg total) by mouth daily. Active Multiple Vitamins-Mineral s (VITEYES AREDS FORMULA OR) Take 2 tablets by mouth daily. Active carvedilol (COREG) 3.125 MG tabletIndication s:Atrial fibrillation, unspecified type ([facility] HHS/HCC) take 1 tablet twice a day 180 tablet 3 024 Active ELIQUIS 5 MG tabletIndication s:Atrial fibrillation, unspecified type ([facility]/HCC) take 1 tablet twice a day 180 tablet 3 024 Active metFORMIN ER (GLUCOPHAGE-XR) 500 MG 24 hr tabletIndication s:Type 2 diabetes mellitus with hyperglycemia, without long-term current use of insulin ([facility]/H[facility]) TAKE 2 TABLETS DAILY BEFORE SUPPER 180 tablet 3 024 Active pravastatin (PRAVACHOL) 80 MG tabletIndication s:Mixed hyperlipidemia TAKE 1 TABLET EVERY EVENING 90 tablet 3 024 Active diclofenac sodium (VOLTAREN) 1 % gelIndications:O steoarthritis of both knees, unspecified osteoarthritis type APPLY 2 GRAMS TO THE AFFECTED AREA TOPICALLY FOUR TIMES A DAY NEEDED 700 g 1 024 Active FARXIGA 10 MG tabletIndication s:CKD (chronic kidney disease) stage 4, GFR 15-29 ml/min ([facility]/HCC) TAKE 1 TABLET DAILY 90 tablet 3 025 Active gabapentin (NEURONTIN) 100 MG capsuleIndicatio ns:Peripheral polyneuropathy TAKE 1 CAPSULE AT BEDTIME FOR NEUROPATHY PAIN. MAY INCREASE TO 2 CAPSULES AT BEDTIME IN 2 WEEKS IF NEEDED 180 capsule 025 Active traZODone (DESYREL) 100 MG tabletIndication s:ENT MANAGES THIS MED. Take 2 tablets (200 mg total) by mouth nightly at bedtime. Indications: ENT MANAGES THIS MED. 025 Active glyBURIDE micronized (GLYNASE) 3 MG TabIndications:T ype 2 diabetes mellitus with hyperglycemia, without long-term current use of insulin ([facility]/H[facility]) TAKE 1 TABLET TWICE A DAY WITH MEALS 180 tablet 025 Active dulaglutide (TRULICITY) 3 MG/0.5ML injectionIndicat ions:Type 2 diabetes mellitus with hyperglycemia, without long-term current use of insulin ([facility]) INJECT 3 MG UNDER THE SKIN ONCE A WEEK 6 mL 025 Active omega-3 acid (LOVAZA) 1 GM capsuleIndicatio ns:Mixed hyperlipidemia TAKE 2 CAPSULES TWICE A DAY 360 capsule 025 Active febuxostat (ULORIC) 40 MG tabletIndication s:Chronic gout without tophus, unspecified cause, unspecified site TAKE 1 TABLET DAILY 90 tablet 025 Active amLODIPine (NORVASC) 5 MG tabletIndication s:Essential hypertension TAKE ONE AND ONE-HALF TABLETS DAILY 135 tablet 025 Active traZODone (DESYREL) 100 MG tabletIndication s:Primary insomnia Take 1 tablet (100 mg total) by mouth see administration instructions. 1-2 tablet at bedtime 90 tablet 1 023 2024 Discontinued(D ose adjustment) febuxostat (ULORIC) 40 MG tabletIndication s:Chronic gout without tophus, unspecified cause, unspecified site TAKE 1 TABLET DAILY 90 tablet 1 024 2024 Discontinued amLODIPine (NORVASC) 5 MG tabletIndication s:Essential hypertension TAKE ONE AND ONE-HALF TABLETS DAILY 135 tablet 1 024 2024 Discontinued omega-3 acid (LOVAZA) 1 GM capsuleIndicatio ns:Mixed hyperlipidemia TAKE 2 CAPSULES TWICE A DAY 360 capsule 1 024 2024 Discontinued glyBURIDE micronized (GLYNASE) 3 MG TabIndications:T ype 2 diabetes mellitus with hyperglycemia, without long-term current use of insulin ([facility]) Take 1 tablet (3 mg total) by mouth 2 (two) times daily with meals. 180 tablet 1 024 2024 Discontinued dulaglutide (TRULICITY) 3 MG/0.5ML injectionIndicat ions:Type 2 diabetes mellitus with hyperglycemia, without long-term current use of insulin ([facility]) Inject 3 mg into the skin once a week. 12 Pen 1 024 2024 Discontinued Active Problems Problem Noted Date Diagnosed Date Type 2 diabetes mellitus wit h hyperglycemia, without long-term current use of insulin ([facility]) 03/03/2024 Peripheral polyneuropathy 03/03/2024 Screening for colon cancer 07/15/2022 Overview (07/15/2022): Added automatically from request for surgery [id number] Personal history of colonic polyps 07/15/2022 Overview (07/15/2022): Added automatically from request for surgery [id number] CKD (chronic kidney disease) stage 4, GFR 15-29 ml/min ([facility]) 05/01/2021 Hyperkalemia 05/01/2021 Spinal stenosis of lumbar re gion with neurogenic claudication 10/10/2020 Chronic bilateral low back pain without sciatica 10/10/2020 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 Espino and flex sig with Dr. Hubbard on 10/22/18 10/24/2018 advance diet per surgery. Postop course stable atrial fibrillation, permanent Resume Eliquis and Coreg per home dose CKD stage 3 Cr 1.94 on admission, baseline creatinine [address] Martell Avoid nephrotoxic agents Resume losartan Chronic HFpEF Patient appeared compensated on admission. Cardiology clearance prior to surgery. Follows with Dr. Duarte. Recommendations are appreciated. See note from 07/20/18 Echo in 12/16/17 showed LVEF 54% with mild mitral regurg per documentation. Losartan, Lasix,Coreg HTN Resume meds as noted above HLD Resume statin T2DM A1c 6.3 in August Resume metformin Resume other meds when po intake consistent GILLIAN Has CPAP Elevated PSA 09/17/2018 GILLIAN (obstructive sleep apnea) 08/13/2018 RLS (restless legs syndrome) 08/13/2018 Chronic renal impairment, stage 3a 04/24/2018 Overview (06/26/2018): Date Onset: 03/14/2016 Vitamin D insufficiency 05/06/2017 Ventricular enlargement, right 04/29/2017 Diabetic retinopathy ([facility]) 7 Renal osteodystrophy 10/04/2015 Prostatism 05/19/2014 Overview (06/26/2018): Date Onset: 05/19/2014 Erectile dysfunction 03/06/2012 Overview (06/26/2018): Date Onset: 09/06/2011 Gout 09/06/2011 Hyperlipidemia 09/06/2011 Atrial fibrillation ([facility]) Essential hypertension Dyslipidemia Diabetes ([facility]) Mass of colon Coronary artery calcification Resolved Problems Problem Noted Date Diagnosed Date Resolved Date Encounter for preventive health examination 09/18/2015 01/21/2020 Encounters Date Type Department Care Team Description 09/06/2024 Telephone [facility] [address] [place] [address] Trudi Carr ANP-BC Record Request 09/06/2024 Telephone [facility] [address] [place] [address] Trudi Carr ANP-BC Forms 08/23/2024 10:00 AM CDT Office Visit [facility] [address] [place] [address] Trudi Carr ANP-BC Follow Up 08/23/2024 Travel 08/17/2024 9:24 AM CDT - 08/17/2024 11:59 PM CDT Hospital Encounter [facility] [address] [place] [address] Stephanie Connolly FNP Discharge Disposition: Home or Self Care (Routine Discharge) 08/17/2024 Telephone [facility] [address] [place] [address] Trudi Carr ANP-BC Records 08/17/2024 Travel 08/12/2024 Abstract [facility] [address] [place] [address] Stephanie Connolly FNP 08/02/2024 MyChart Message Enc [facility] [address] [place] [address] Stephanie Connolly, MOSHE Blood work 08/02/2024 Telephone [facility] [address] [place] [address] Trudi Carr, ANP- Surgical Clearance 07/28/2024 Scan [facility] INFO SRVCS Scanned, [facility] 07/06/2024 8:59 AM ACCOUNT SERVICES MANAGER - 07/06/2024 11:59 PM ACCOUNT SERVICES MANAGER Hospital Encounter [facility] [address] [place] [address] Vaishnavi Sung MD Discharge Disposition: Home or Self Care (Routine Discharge) 07/06/2024 Travel 07/02/2024 9:50 AM ACCOUNT SERVICES MANAGER - 07/02/2024 11:59 PM ACCOUNT SERVICES MANAGER Hospital Encounter [facility] [address] [place] [address] Vaishnavi Sung MD Discharge Disposition: Home or Self Care (Routine Discharge) 07/02/2024 Travel from Last 3 Months Immunizations Immunization Administration Dates Next Due Fluzone High Dose (IIV, triv alent, 0.5mL) 03/03/2024 Fluzone High Dose - >Age 65 (Prefilled Syringe) 02/18/2023,03/06/2022,02/21/2021,2019,04/14/2019 Influenza (Generic) 02/25/2018,02/26/2017,2015 Pneumococcal (Generic) 04/24/2016 Pneumococcal (Prevnar 13) 04/14/2019 Pneumococcal (Prevnar 20) 08/25/2023 Shingrix 05/18/2019,03/03/2019 Tdap (Generic) 08/25/2023 Zoster (Zostavax) 91902 Unt/0.65Ml 05/19/2014 Family History Medical History Relation Comments Heart Attack Father Cancer Sister 1 Heart Attack Sister 1 Hypertension Sister 1 Stroke Sister 1 Aneurysm Sister 2 Anesthesia Neg Hx Anesthesia problems Neg Hx Relation Status Comments Father ID age 49 Maternal Grandfather Maternal Grandmother Mother Paternal Grandfather Paternal Grandmother Sister 1 Sister 2 Social History Tobacco Use Types Packs/Day Years Used Date Smoking Tobacco: Never Smokeless Tobacco: Never Tobacco Cessation:Counseling Given: Not Answered Comments:Provider to direct selling counselor Alcohol Use Standard Drinks/Week Comments Not [...] and Family Once a week 07/26/2019 Attends Voodoo Services Never 07/25 Active Member of Clubs or Organizations No 07/26/2019 Attends Club or Organization Meetings Never 07/26/2019 Marital Status 07/26/2019 Overall Financial Resource Strain (CARDIA) Answe r Date Recorded Difficulty of Paying Living Expenses Not hard at all 07/26/2019 PHQ-2 Answer Date Recorded Patient Health Questionnaire-2 Score 0 03/03/2024 [facility] - Occupational [...] Sex Assigned at Male 05/26/2024 9:59 AM ACCOUNT SERVICES MANAGER Legal Sex Male 8:35 PM CDT Gender Identity Male 07/26/2019 3:08 PM CDT Sexual Orientation Straight 07/26/2019 3: 08 PM CDT Occupation Industry Job Start Date Job End Date Retired Not on file Not on file Not on file Last Filed Vital Signs Vital Sign Reading Time Taken Comments Blood Pressure 130/76 08/23/2024 10:06 AM CDT Pulse 76 08/23/2024 10:02 AM CDT Temperature 36.6 C (97.8 F) 03/03/2024 10:55 AM CDT Respiratory Rate 16 08/23/2024 10:02 AM CDT Oxygen Saturation 98% 08/23/2024 10:02 AM CDT Inhaled Oxygen Concentration - - Weight 90.5 kg (199 lb 9.6 oz) 08/23/2024 10:02 AM CDT Height 175.9 cm (5' 9.25 ) 08/23/2024 10:02 AM C DT Body Mass Index 29.26 08/23/2024 10:02 AM CDT Plan of Treatment Upcoming Encounters Date Type Department Care Team (Late st Contact Info) Description 09/14/2024 9:20 AM CDT Office Visit [facility] [address] [place] [address] Stephanie Connolly, PHOTOENGRAVING PROOFER APPRENTICE [address] [place] [address] 01/05/2025 12:40 PM CDT Office Visit [facility] [address] [address] Mini Martell MD [address] [place] [address] 09/05/2025 10:30 AM CDT Office Visit [facility] [place] [phone] Trudi Carr, ANP- [address] [place] [phone] Health Maintenance Due Date Last Done Comments Annual Medicare Wellness Visit 2016 PHQ-2 (Physician [place]) 05/12/2024 03/03/2024 Diabetes: Retinopathy Eye Exam 11/04/2024 11/05/2023, 04/08/2022, 04/08/2022, Additional history exists Hemoglobin A1C 02/16/2025 08/17/2024, 02/10, 08/01/2023, Additional history exists Kidney Health Evaluation 03/01/2025 03/01/2024, 02/10 COVID-19 Vaccine ( season) 2025 12/14/2020, 11/23/2020 Postponed from 01/11/2024 (Patient Refused) RSV Immunization or 60+ Years (1 - Risk 60-74 years 1-dose series) 03/03/2025 Postponed fro m 2011 (Going to Outside Clinic) Lipid Panel 08/17/2025 08/17/2024, 02/10, 03/01/2024, Additional history exists DTaP, Tdap and Td Vaccines (2 - Td or Tdap) 08/24/2033 08/25/2023 Colorectal Cancer Screening Colonoscopy (10 Years) 10/20/2033 10/21/2023, 08/06/2022 Zoster Vaccines Completed 05/18/2019, 02/10, 05/19/2014 Hepatitis C Completed 02/18/2023 Pneumococcal Vaccine: 50+ Years Completed 08/25/2023, 04/14/2019 Meningococcal B Vaccine Aged Out No l onger eligible based on patient's age to complete this topic Meningococcal Vaccine Aged Out No tashi chris eligible based on patient's age to complete this topic RSV Immunizations Under 20 Months Aged Out No longer eligible based on patient's age to complete this topic Goals Goal Patient Goal Type Associated Problems Recent Progress Patient-Stated? Author Return home with General No Peggy Kellogg MSW Return home with General No Peggy Kellogg MSW Medical Devices Implanted Type Area Deckhand Tuna Boat Device Identifier Shelf Expiration Date Model / Serial / Lot Mesh Surgical C-Qur Tacshield 8x6in Symmetrical Fixation Apron Sterile Polypropylene Hudson-3 Fatty Acid White Stone Hernia - [id number] Implanted:Qty: 1 on 07/26/2019 by Darwin Espino MD at [facility] National Institutes of Health (NIH) CARDIOVASCULAR [employer] 04/08/2020 [id number] / [id number] / Procedures Procedure Name Priority Date/Time Associated Diagnosis Comments ELECTROCARDIOGRAM (NON MIDMARK ACQUIRED) Routine 08/23/2024 11:13 AM CDT Permanent atrial fibrillation ([facility]) Coronary artery calcification COMPREHENSIVE METABOLIC PANEL Routine 08/17/2024 9:34 AM CDT Type 2 diabetes mellitus with stage 3 chronic kidney disease, without long-term current use of insulin, unspecified whether stage 3a or 3b CKD ([facility]) Essential hypertension Mixed hyperlipidemia Chronic renal impairment, stage 3a ([facility]) HEMOGLOBIN, GLYCOSYLATED Routine 025 9:34 AM CDT Type 2 diabetes mellitus with stage 3 chronic kidney disease, without long-term current use of insulin, unspecified whether stage 3a or 3b CKD ([facility]/H[facility]) LIPID PANEL Routine 08/17/2024 9:34 AM CDT Type 2 diabetes mellitus with stage 3 chronic kidney disease, without long-term current use of insulin, unspecified whether stage 3a or 3b CKD ([facility] H[facility]/HCC) Essential hypertension Mixed hyperlipidemia CBC W/DIFF AUTOMATED Routine 08/17/2024 9:34 AM CDT Type 2 diabetes mellitus with stage 3 chronic kidney disease, without long-term current use of insulin, unspecified whether stage 3a or 3b CKD ([facility]) Essential hypertension Mixed hyperlipidemia Chronic renal impairment, stage 3a ([facility]) CT LUMB SPINE WO CON Routine 07/06/2024 9:14 AM ACCOUNT SERVICES MANAGER Spondylosis without myelopathy or radiculopathy, lumbar region XR SCOLIOSIS UPRT OR SUP AP+LAT Routine 07/02/2024 10:39 AM ACCOUNT SERVICES MANAGER Lumbar spondylosis XR LUMB SPINE+OBLS 5V Routine 07/02/2024 10:39 AM ACCOUNT SERVICES MANAGER Lumbar spondylosis DIABETIC RETINOPATHY EXAM (POSITIVE)(SCAN ORDER) Routine 11/05/2023 HEPATITIS C ANTIBODY Routine 02/18/2023 10:05 AM CDT Need for hepatitis C screening test from Last 3 Months or Most Recently Relevant to Health Maintenance Results * ELECTROCARDIOGRAM (NON MIDMARK ACQUIRED) (08/23/2024 11:13 AM CDT) 08/23/2024 11:1 3 AM CDT [facility] CARDIOVASCULAR - 08/26/2024 6:56 [place] [address] Test Date: 2024-08-23 Pat Name: KENTRELL SPENCE Department: 176 Room: Gender: Male Barratte Operator: : 1950 Requested By: TATYANA ALICEA Order Number: [id number] Reading MD: Osvaldo Coleman Measurements Intervals [place] Rate: 70 P: 0 KS: 0 QRS: -51 QRSD: 102 T: -19 QT: 412 QTc: 446 Interpretive Statements ATRIAL FLUTTER/TACHYCARDIA PATTERN CONSISTENT WITH PULMONARY DISEASE LEFT ANTERIOR FASCICULAR BLOCK Since prior tracing, atrial flutter now present Procedure Note Osvaldo Coleman MD - 08/26/2024 [place] [address] Test Date: 2024-08-23 Pat Name: KENTRELL SPENCE Department: 176 Room: Gender: Male Barratte Operator: : 1950 Requested By: TATYANA ALICEA Order Number: [id number] Reading : Osvaldo Coleman Measurements Intervals [place] Rate: 70 P: 0 KS: 0 QRS: -51 QRSD: 102 T: -19 QT: 412 QTc: 446 Interpretive Statements ATRIAL FLUTTER/TACHYCARDIA PATTERN CONSISTENT WITH PULMONARY DISEASE LEFT ANTERIOR FASCICULAR BLOCK Since prior tracing, atrial flutter now present Tatyana Alicea MD PROCEDURES-ORDERABLE NO CHARGE F inal Result ENIO PAN * (ABNORMAL) HEMOGLOBIN, GLYCOSYLATED (08/17/2024 9:34 AM CDT) HGB A1C 6.8(H) <5.7 % 08/18/2024 6:41 AM CDT [facility] Comment: ADA GUIDELINES 2010 5.7 TO 6.4% INCREASED RISK OF DIABETES > OR = 6.5% CONSISTENT WITH DIABETES ESTIMATED AVG GLUCOSE 148 mg/dL 08/18/2024 6:41 AM CDT [facility] 08/17/2024 9:34 AM CDT Stephanie Connolly PHOTOENGRAVING PROOFER APPRENTICE LABORATORY Final Result Performing Organization Address [facility]/ZIP Co de Phone Number [facility] [address] [address], [place] [phone] * (ABNORMAL) COMPREHENSIVE METABOLIC PANEL (08/17/2024 9:34 AM CDT) GLUCOSE 162(H) 70 - 99 MG/DL 08/17/2024 10:37 AM CDT [facility] BUN 28(H) 7 - 18 MG/DL 08/17/2024 10:37 AM CDT [facility] CREATININE S/P/B 1.84(H) 0.50 - 1.20 MG/DL 08/17/2024 10:37 AM CDT [facility] SODIUM S/P/B 139 136 - 145 MMOL/L 08/17/2024 10:37 AM CDT [facility] POTASSIUM S/P/B 4.9 3.5 - 5.1 MMOL/L 08/17/2024 10:37 AM CDT [facility] CHLORIDE S/P/B 102 100 - 108 MMOL/L 08/17/2024 10:37 AM CDT [facility] CO2 28.4 21.0 - 32.0 MMOL/L 08/17/2024 10:37 AM CDT [facility] CALCIUM S/P/B 9.7 8.5 - 10.1 MG/DL 08/17/2024 10:37 AM CDT [facility] BILIRUBIN TOTAL S/P/B 0.7 0.2 - 1.2 MG/DL 08/17/2024 10:37 AM CDT [facility] Comment: THIS ASSAY IS NOT RECOMMENDED FOR PATIENTS UNDERGOING TREATMENT WITH ELTROMBOPAG DUE TO THE POTENTIAL FOR FALSELY ELEVATED RESULTS. TOTAL PROTEIN S/P/B 7.6 6.4 - 8.2 G/DL 08/17/2024 10:37 AM CDT [facility] ALBUMIN S/P/B 3.7 3.4 - 5.0 G/DL 08/17/2024 10:37 AM CDT [facility] AST 20 15 - 37 U/L 08/17/2024 10:37 AM CDT [facility] ALT 34 16 - 60 U/L 08/17/2024 10:37 AM CDT [facility] ALKALINE PHOSPHATASE S/P/B 81 50 - 136 U/L 08/17/2024 10:37 AM T [facility] ANION GAP 8.6 5.0 - 15.0 MMOL/L 08/17/2024 10:37 AM CDT [facility] BUN CREATININE RATIO 15.2 6 - 26 08/17/2024 10:37 AM CDT [facility] A/G RATIO 0.9(L) 1.0 - 2.5 RATIO 08/17/2024 10:37 AM T [facility] GFR ESTIMATE 38(L) >90 ML/MIN/1.7 3 M2 08/17/2024 10:37 AM CDT [facility] Comment: NOTE: eGFR is not calculated for patients <18 years of age. This is an estimated GFR calculation using the new CKD EPI creatinine equation without race and so does not require a correction factor for race. This estimated GFR should not be used for calculating drug doses. 08/17/2024 9:34 AM CDT us Stephanie Yusuf Mohsen PHOTOENGRAVING PROOFER APPRENTICE LABORATORY Final Result [facility] [address] [place] [address], * (ABNORMAL) LIPID PANEL (08/17/2024 9:34 AM CDT) CHOLESTEROL 131 <200 MG/DL 08/17/2024 1:55 PM CDT [facility] TRIGLYCERIDES 182(H) <150 MG/DL 08/17/2024 1:55 PM CDT [facility] HDL 41 >40.0 MG/DL 08/17/2024 1:55 PM CDT [facility] LDL (CALCULATED) 54 <100 MG/DL 08/17/2024 1:55 PM CDT [facility] NON HDL CHOLESTEROL 90 <130 MG/DL 08/17/2024 1:55 PM CDT [facility] CHOL/HDL RATIO 3.2 0.0 - 4.5 08/17/2024 1:55 PM CDT [facility] VLDL CALCULATION 36 5 - 55 MG/DL 08/17/2024 1:55 PM CDT [facility] LIPID INTERPRETATION 08/17/2024 1:55 PM CDT [facility] Comment: [facility] CONCENSUS REPORT RECOMMENDATIONS: ADULT CHILD LOW RISK: CHOLESTEROL <200 <170 TRIGLYCERIDE <150 --- HDL >=60 --- LDL <100 <110 BORDERLINE: CHOLESTEROL 200-239 170-199 TRIGLYCERIDE 150-199 --- HDL 40-59 --- LDL 100-159 110-129 HIGH RISK: CHOLESTEROL >=240 >=200 TRIGLYCERIDE >=200 --- HDL <40 --- LDL >=160 >=130 08/17/2024 9:34 AM CDT Stephanie Connolly PHOTOENGRAVING PROOFER APPRENTICE LABORATORY Final Result [facility] [address] [place] [address], [place] [phone] * CBC W/DIFF AUTOMATED (08/17/2024 9:34 AM CDT) Pathologist [facility] WBC 8.08 4.50 - 11.00 x10'3/uL 08/17/2024 10:06 AM CDT [facility] RBC 5.22 4.50 - 5.90 x10'6/uL 08/17/2024 10:06 AM CDT [facility] HGB 16.2 14.0 - 18.0 G/DL 08/17/2024 10:06 AM CDT [facility] HCT 46.1 43.0 - 54.0 % 08/17/2024 10:06 AM CDT [facility] MCV 88.3 80.0 - 100.0 FL 08/17/2024 10:06 AM CDT [facility] MCH 31.0 26.0 - 34.0 PG 08/17/2024 10:06 AM CDT [facility] MCHC 35.1 31.0 - 37.0 G/DL 08/17/2024 10:06 AM CDT [facility] RDW 13.3 11.6 - 14.8 % 08/17/2024 10:06 AM CDT [facility] PLT 177 130 - 400 x10'3/uL 08/17/2024 10:06 AM CDT [facility] MPV 9.0 7.0 - 12.0 FL 08/17/2024 10:06 AM CDT [facility] CBC COMMENT AUTOMATED RBC MORPHOLOGY AND PLATELET EVALUATION NORMAL 08/17/2024 10:06 AM CDT [facility] NEUTROPHILS % 51.0 40.0 - 74.0 % 08/17/2024 10:06 AM CDT [facility] LYMPHOCYTES % 36.3 14.0 - 46.0 % 08/17/2024 10:06 AM CDT [facility] MONOCYTES % 8.7 4.0 - 13.0 % 08/17/2024 10:06 AM CDT [facility] EOSINOPHILS 3.1 0.0 - 7.0 % 08/17/2024 10:06 AM CDT [facility] BASOPHILS 0.5 0.0 - 3.0 % 08/17/2024 10:06 AM CDT [facility] IMMATURE GRANS % 0.4 0.0 - 0.43 % 08/17/2024 10:06 AM CDT [facility] NRBC % 0.0 % 08/17/2024 10:06 AM CDT [facility] ABS. NEUTROPHILS TOTAL 4.13 1.69 - 7.81 x10'3/uL 08/17/2024 10:06 AM CDT [facility] ABS. LYMPHOCYTES 2.93 0.21 - 5.42 x10'3/uL 08/17/2024 10:06 AM CDT [facility] ABS. MONOCYTES 0.70 0.04 - 1.37 x10'3/uL 08/17/2024 10:06 AM CDT [facility] ABS. EOSINOPHILS 0.25 0.00 - 0.68 x10'3/uL 08/17/2024 10:06 AM CDT [facility] LAB ABS. BASOPHILS 0.04 0.00 - 0.08 x10'3/uL 08/17/2024 10:06 AM CDT [facility] LAB ABS. IMMATURE GRANULOCYTES 0.03 0.00 - 0.06 x10'3/uL 08/17/2024 10:06 AM CDT [facility] LAB ABS. NUCLEATED RBC'S 0.00 0.00 - 0.01 x10'3/uL 08/17/2024 10:06 AM CDT [facility] 08/17/2024 9:34 AM CDT us Stephanie Connolly PHOTOENGRAVING PROOFER APPRENTICE LABORATORY Final Result [address] [place] [address], [place] * CT LUMB SPINE WO CON (07/06/2024 9:14 AM ACCOUNT SERVICES MANAGER) Anatomical Region Laterality Modality Spine Computed Tomogra phy 07/07/2024 8:34 AM ACCOUNT SERVICES MANAGER Impressions 07/07/2024 8:42 AM ACCOUNT SERVICES MANAGER IMPRESSION: 1. Severe bilateral neural foraminal stenosis at the L2/L3, L3/L4 and L5/S1. Moderate bilateral foraminal stenosis at L4/L5. 2. No significant lumbar central canal stenosis within limits of a noncontrast CT 3. Osteopenia with partial bony fusion of the L1-L5 disc spaces and prominent calcification along the anterior longitudinal ligament at L1-L5. Referred By: VAISHNAVI SUNG Interpreted By: Allan Jurado MD, 07/07/2024 8:34 AM Narrative 07/07/2024 8:42 AM ACCOUNT SERVICES MANAGER [address] [place] [address] EXAMINATION:L[address] without contrast 07/06/2024 INDICATION:Spondylosis without myelopathy radiculopathy, chronic lower back pain and right leg pain TECHNIQUE: Axial CT images of the lumbar spine were acquired without intravenous contrast. Sagittal coronal reformats were constructed. Radiation dose reduction techniques were used. COMPARISON: Lumbar spine MRI 03/18/2024, CT of the abdomen and pelvis/ FINDINGS:Last fully formed disc space is presumed represent L5/S1. The lumbar spine is in anatomic alignment with preservation of vertebral body heights and disc spaces. The sacroiliac joint spaces are unremarkable. No acute fracture or dislocation. Mineralization appears to be diffusely decreased. No suspicious focal bony lesion. There is a calcification along the anterior longitudinal ligament at the T12-L5 levels, unchanged. There is partial bony fusion of the L1-L5 disc spaces. T12/L1: Negative L1/L2: Disc space narrowing with small posterior disc/osteophyte complex causing slight effacement of ventral thecal sac and mild encroachment upon the neural foramina L2/L3: Disc space narrowing with 2 mm retrolisthesis small posterior disc/osteophyte complex, facet arthropathy and small bilateral foraminal disc/osteophyte complexes causing severe bilateral foraminal stenosis L3/L4: Disc space narrowing with small posterior disc/osteophyte complex, facet arthropathy and bilateral foraminal disc/osteophyte complexes causing severe bilateral foraminal stenosis. L4/L5: Disc space narrowing with small posterior disc/osteophyte complex, facet arthropathy and bilateral foraminal disc/osteophyte complexes causing moderate bilateral foraminal stenosis L5/S1: Disc space narrowing with small posterior disc/osteophyte complex, facet arthropathy and bilateral foraminal disc/osteophyte complexes causing severe bilateral foraminal stenosis. Sacral joint spaces are unremarkable. No paraspinal mass or fluid collection. Mild calcification is seen throughout the abdominal aorta. Procedure Note Allan Jurado MD - 07/07/[address] 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 Sagittal coronal reformats were constructed.Radiation dose reduction techniques were used. COMPARISON: Lumbar spine MRI 03/18/2024, CT of the abdomen andpelv FINDINGS:Last fully formed disc space is presumed represent L5/S1. Thelumbar spine is in anatomic alignment with preservation of vertebral bodyheights and disc spaces. The sacroiliac joint spaces are unremarkable. No acute fracture or dislocation. Mineralization appears to be diffuselydecreased. No suspicious focal bony lesion. There is a calcificationalong the anterior longitudinal ligament at the T12-L5 levels, unchanged.There is partial bony fusion of the L1- L5 disc spaces. T12/L1: Negative L1/L2: Disc space narrowing with small posterior disc/osteophyte complexcausing slight effacement of ventral thecal sac and mild encroachment uponthe neural foramina L2/L3: Disc space narrowing with 2 mm retrolisthesis small posteriordisc/osteophyte complex, facet arthropathy and small bilateral foraminaldisc/osteophyte complexes causing severe bilateral foraminal stenosis L3/L4: Disc space narrowing with small posterior disc/osteophyte complex,facet arthropathy and bilateral foraminal disc/osteophyte complexescausing severe bilateral foraminal stenosis. L4/L5: Disc space narrowing with small posterior disc/osteophyte complex,facet arthropathy and bilateral foraminal disc/osteophyte complexescausing moderate bilateral foraminal stenosis L5/S1: Disc space narrowing with small posterior disc/osteophyte complex,facet arthropathy and bilateral foraminal disc/osteophyte complexescausing severe bilateral foraminal stenosis. Sacral joint spaces are unremarkable. No paraspinal mass or fluid collection. Mild calcification is seenthroughout the abdominal aorta. IMPRESSION: 1. Severe bilateral neural foraminal stenosis at the L2/L3, L3/L4 andL5/S1. Moderate bilateral foraminal stenosis at L4/L5. 2. No significant lumbar central canal stenosis within limits of anoncontrast CT 3. Osteopenia with partial bony fusion of the L1-L5 disc spaces andprominent calcification along the anterior longitudinal ligament atL1-L5. Referred By: VAISHNAVI SUNG Interpreted By: Allan Jurado MD, 07/07/2024 8:34 AM us Vaishnavi Sung MD CT Final Res ult * XR SCOLIOSIS UPRT OR SUP AP+LAT (07/02/2024 10:39 AM ACCOUNT SERVICES MANAGER) Anatomical Region Laterality Modality Spine Computed Tomogra phy 07/03/2024 9:52 AM ACCOUNT SERVICES MANAGER Impressions 07/03/2024 9:54 AM ACCOUNT SERVICES MANAGER IMPRESSION: Minimal gentle dextroconvex curvature thoracic spine. Ordered By: VAISHNAVI SUNG Interpreted By: Daniel Potts MD, 07/03/2024 9:52 AM Narrative 07/03/2024 9:54 AM ACCOUNT SERVICES MANAGER [address] [place] [address] Examination: XR SCOLIOSIS UPRT OR SUP AP+LAT Exam time: 07/02/2024 10:00 AM Clinical history: Chronic low back pain. Spondylosis. Comparison: No prior exam Technique: Upright AP and lateral views of the spine Findings: There is no evidence of vertebral segmentation anomalies. There are 12 rib pairs. There is diffuse spondylosis throughout the entire thoracic and lumbar spine. There is only subtle gentle dextroconvex curvature within the thoracic spine which measures approximately 2 degrees from the superior endplate of T2 to the inferior endplate of L2. Minimal pelvic tilt to the left. Multiple rounded metallic densities project within the midabdomen and are usually seen with ventral hernia repair. On the lateral view, there is diffuse bridging anterior osteophytes throughout the thoracic and lumbar spine which can be seen with DISH. Procedure Note Daniel Potts MD - 07/03/[address] [place] [address] Examination: XR SCOLIOSIS UPRT OR SUP AP+LAT Exam time: 07/02/2024 10:00 AM Clinical history: Chronic low back pain. Spondylosis. Comparison: No prior exam Technique: Upright AP and lateral views of the spine Findings: There is no evidence of vertebral segmentation anomalies. Thereare 12 rib pairs. There is diffuse spondylosis throughout the entirethoracic and lumbar spine. There is only subtle gentle dextroconvexcurvature within the thoracic spine which measures approximately 2 degreesfrom the superior endplate of T2 to the inferior endplate of L2. Minimalpelvic tilt to the left. Multiple rounded metallic densities projectwithin the midabdomen and are usually seen with ventral hernia repair. Onthe lateral view, there is diffuse bridging anterior osteophytesthroughout the thoracic and lumbar spine which can be seen with DISH. IMPRESSION: Minimal gentle dextroconvex curvature thoracic spine. Ordered By: VAISHNAVI SUNG Interpreted By: Daniel Potts MD, 07/03/2024 9:52 AM us Vaishnavi Sung MD GENERAL IMAGING Final Res ult * XR LUMB SPINE+OBLS 5V (07/02/2024 10:39 AM ACCOUNT SERVICES MANAGER) Anatomical Region Laterality Modality Spine Computed Tomogra phy 07/03/2024 9:56 AM ACCOUNT SERVICES MANAGER Impressions 07/03/2024 9:59 AM ACCOUNT SERVICES MANAGER IMPRESSION: 1. No acute abnormality. 2. Diffuse degenerative changes. Ordered By: VAISHNAVI SUNG Interpreted By: Daniel Potts MD, 07/03/2024 9:56 AM Narrative 07/03/2024 9:59 AM ACCOUNT SERVICES MANAGER [address] [place] [address] Examination: XR LUMB SPINE+OBLS 5V Exam time: 07/02/2024 10:00 AM Clinical history: Chronic low back pain Comparison: No prior exam Technique: AP, lateral, lumbosacral view, bilateral oblique views Findings: There are 5 lumbar-type vertebra. There is diffuse anterior lateral vertebral body endplate spurring throughout the lower thoracic and lumbar spine with a radiographic appearance suggestive of DISH. There is mild decrease of intervertebral disc heights throughout all levels of the lumbar spine. Moderate facet joint degenerative changes visualized throughout the lumbar spine. Facet joint relationships and alignment appears within normal limits on the lateral view. No evidence of fracture or acute osseous abnormality. Sacroiliac joints appear unremarkable. Visualized sacral ala appear intact. Multiple rounded metallic coil type densities project within the midabdomen and are usually seen secondary to hernia repair. Procedure Note Daniel Potts MD - 07/03/[address] [place] [address] Examination: XR LUMB SPINE+OBLS 5V Exam time: 07/02/2024 10:00 AM Clinical history: Chronic low back pain Comparison: No prior exam Technique: AP, lateral, lumbosacral view, bilateral oblique views Findings: There are 5 lumbar-type vertebra. There is diffuse anteriorlateral vertebral body endplate spurring throughout the lower thoracic andlumbar spine with a radiographic appearance suggestive of DISH. There ismild decrease of intervertebral disc heights throughout all levels of thelumbar spine. Moderate facet joint degenerative changes visualizedthroughout the lumbar spine. Facet joint relationships and alignmentappears within normal limits on the lateral view. No evidence of fractureor acute osseous abnormality. Sacroiliac joints appear unremarkable.Visualized sacral ala appear intact. Multiple rounded metallic coil typedensities project within the midabdomen and are usually seen secondary tohernia repair. IMPRESSION: 1. No acute abnormality. 2. Diffuse degenerative changes. Ordered By: VAISHNAVI SUNG Interpreted By: Daniel Potts MD, 07/03/2024 9:56 AM Vaishnavi Sung MD GENERAL IMAGING Final Res ult * DIABETIC RETINOPATHY EXAM (POSITIVE) (11/05/2023) [facility] Scanned SCANNING Final Resu lt Performing Organization Address City/[facility]/ZIP Co de Phone Number [facility] ONBASE * HEPATITIS C AB ([facility] ONLY) (02/18/2023 10:05 AM CDT) HEPATITIS C AB NON-REACTI VE NON-REACTI VE 02/18/2023 3:21 PM CDT [facility] 02/18/2023 10:0 5 AM CDT Stephanie Connolly PHOTOENGRAVING PROOFER APPRENTICE LABORATORY Final Result Performing Organization Address City/[facility] Co de Phone Number [facility] [address] [place] [address], [place] [phone] from Last 3 Months or Most Recently Relevant to Health Maintenance Insurance [facility] [employer] [place], [address] MEDICARE MEDICARE [facility] Advance Directives Documents on File Type Date Recorded Patient Rotary Driller Prospecting Expl anation Advance Directives and Living Will 06/23/2018 12:00 AM ADVANCED DIRECTIVES Advance Directives and Living Will 06/16/2018 12:00 AM ADVANCED DIRECTIVES * Full Code (Latest Code Status on File) Date Activated Date Inactivated Comments 08/06/2019 4:12 PM 08/11/2019 6:54 PM * Full Code Date Activated Date Inactivated Comments 07/27/2019 7:57 AM 07/27/2019 8:03 PM * Full Code Date Activated Date Inactivated Comments 10/22/2018 1:44 PM 10/26/2018 8:09 PM Care Teams Diagnostic Sales Specialist Relationship Specialty Start Date End Date Stephanie Connolly FNP [address] [place] [address] PCP - General NURSE PRACTITIONER 01/05/18 Guanakito Duarte MD [place] Food Stand Manager CARDIOVASCULAR DISEASE 01/15/17 Trudi Carr, ANP- [address] [place] [address] [address] [place] [address] NURSE PRACTITIONER 01/15/17 Mini Martell MD [address] [place] [address] NEPHROLOGY 04/16/17
--- OUTSIDE RECORDS SUMMARY | 2024-09-06 13:48 | XMS_ITS | Encounter Summary ---
Author Organization [facility] Address [facility] [place] [address] Care Team Providers Care Call Center Recruiter Name Role Phone Gerald Bell MD, Robert Unavailable [phone] Trudi Carr [facility]- Unavailable [phone] Mini Martell MD Unavailable Stephanie Connolly Primary Care Provider [phone] Encounter Details Date Type Department Care Team (Late st Contact Info) Description 03/17/2018 Abstract [facility] Conversion , Generic Conversion, Social History Tobacco Use Types Packs/Day Years Used Date Smoking Tobacco: Never Smokeless Tobacco: Never Alcohol Use Standard Drinks/Week Comments Yes 0 (1 standard drink = 0.6 oz pur e alcohol) 2 drink per week Sex and Gender Information Value Date Recorded Sex Assigned at Male 05/26/2024 9:59 AM [place] Legal Sex Male 8:35 PM CDT Gender [...] Description 09/14/2024 9:20 AM CDT Office Visit [place] [address] [place] [address] Stephanie Connolly FNP [address] [place] [address] [place] [address] 01/05/2025 12:40 PM CDT Office Visit [facility] [place] [id number] [place] [address] Mini Martell MD [address] [facility] [place] [address] [place] [address] 09/05/2025 10:30 AM CDT Office Visit [facility] [address] [facility] [phone] Trudi Carr ANP-BC [address] [place] [address] [phone] documented as of this encounter Visit Diagnoses Not on filedocumented in this encounter Care Teams Call Center Recruiter Relationship Specialty Start Date End Date Stephanie Connolly FNP [address] [place] [address] PCP - General NURSE PRACTITIONER 01/05/18 Guanakito Duarte MD [place] Rec[employer]able Products Sorter CARDIOVASCULAR DISEASE 01/15/17 Trudi Carr ANP-BC [address] [place] [address] [address] [place] [address] NURSE PRACTITIONER 01/15/17 Mini Martell MD [address] [place] [address] NEPHROLOGY 04/16/17 documented as of this encounter
[2024-09-06 13:52] LABS: Hematocrit 47.7 % (42.0-52.0); Hemoglobin 16.1 g/dL (14.0-18.0); Mean Corpuscular HGB Conc 33.8 g/dl (32-36); Mean Corpuscular Hemoglobin 30.2 pg (26-34); Mean Corpuscular Volume 89.5 fl (80-100); Platelet Count Result 186 k/mm3 (150-375); Red Blood Count 5.33 M/mm3 (4.6-6.20); Red Cell Distribution Width 13.2 % (11.5-14.5); White Blood Count 8.7 K/mm3 (4.5-10.0)
[2024-09-06 14:02] LABS: Add Urine Microscopic? NO; Appearance Urine Clear (Clear); Bilirubin Urine Negative (Negative); Blood Urine Negative (Negative); Color Urine Yellow (Yellow); Glucose Urine UA 3+ mg/dL (Negative); Ketones Urine Negative (Negative); Leukocyte Esterase Ur Negative LEU/UL (Negative); Nitrate Urine Negative (Negative); Protein Urine Negative (Negative); Specific Grav Ur 1.019 (1.001-1.035); Urobilinogen Urine 0.2 mg/dL (<2.0); pH Urine 5.5 (5.0-9.0)
[2024-09-06 14:03] LABS: INR 1.2; Prothrombin Time 15.7 Seconds (11.1-14.7)
[2024-09-06 14:04] LABS: Partial Thromboplastin Time 29.1 Seconds (22.3-36.8)
[2024-09-06 14:52] LABS: Anion Gap 10 mmol/L (4-12); Blood Urea Nitrogen 31 mg/dL (9-20); Calcium 10.1 mg/dL (8.4-10.2); Carbon Dioxide 28 mmol/L (22-30); Chloride 101 mmol/L (98-107); Estimated Glomerular Filt Rate 36; Glucose 131 mg/dL (65-110); Potassium 4.5 mmol/L (3.4-5.0); Sodium 139 mmol/L (137-145)
[2024-09-06 15:34] LABS: Hemoglobin A1C 6.7 % (<5.7)
== END 2024-09-06 11:51 | disposition home or self-care (01) ==
LOC: ANHSURGERY 11:56
PROVIDERS: PCP Nurse Practitioner; Visit Provider Neurological Surgery
DX: M47.816 Spondylosis without myelopathy or radiculopathy, lumbar region (principal); Z01.818 Encounter for other preprocedural examination
CPT/HCPCS: 36415; 80048; 81003; 83036; 85027; 85610; 85730; 86850; 86900; 86901

== ENCOUNTER 2024-09-08 11:00 | Outpatient (CLI) | payer MEDICARE, BC, SELFPAY ==
--- NOTE | ~2024-09-08 | CT_ITS ---
Noncontrast CT scan of the lumbar spine CLINICAL HISTORY: Spondylosis TECHNIQUE: Axial noncontrast imaging of the lumbar spine was performed. Sagittal and coronal reformat roldan images were constructed. Dose reduction technique was used on this scan by utilizing automated ex posure control and iterative reconstruction technique. The dose-length product (DLP) was 838.32 mGy-c m. FINDINGS: No acute fracture seen. There is 3 mm retrolisthesis of L1 over L2. There is 3 mm retrolist hesis of L2 over L3. There are extensive flowing anterior marginal osteophytes, compatible with sever e/extensive DISH of the visualized thoracolumbar spine. At L1-L2, there is moderate to advanced degenerative disc narrowing. No disc bulge evident. There is moderate facet arthropathy. No central canal stenosis. There is moderate right neural foraminal narro wing. Left neural foramen preserved. At L2-L3, there is advanced degenerative disc narrowing. There is advanced facet arthropathy. Probabl e minimal central canal stenosis. There is moderate bilateral neural foraminal narrowing, left worse than right. At L3-L4, there is advanced degenerative disc narrowing with advanced facet hypertrophy. There is min imal central canal stenosis. There is advanced right neural foraminal narrowing and moderate left madiha ral foraminal narrowing. At L4-L5, there is mild degenerative spurring. There is advanced facet arthropathy. No greg central canal stenosis. There is mild to moderate bilateral neural foraminal narrowing. At L5-S1, there is moderate facet arthropathy. No central canal stenosis. There is advanced bilateral neural foraminal narrowing. Paravertebral soft tissues are unremarkable. Impression: Moderate to advanced degenerative spondylosis overall, with multilevel neural foraminal narrowing. Pl ease see details above. Extensive DISH. 3 mm retrolisthesis of L1 over L2, and of L2 over L3. Reviewed, dictated and finalized at location M. Impression: Moderate to advanced degenerative spondylosis overall, with multilevel neural f oraminal narrowing. Please see details above. Extensive DISH. 3 mm retrolisthesis of L1 over L2, and of L2 over L3.
--- OUTSIDE RECORDS SUMMARY | 2024-09-08 12:27 | XMS_ITS | Continuity of Care Document ---
Author Organization [employer] [facility] Address [address] [place] [id number] Phone Care Team Providers Care Small Battery Plate Assembler Name Role Phone Denis Rouse MD Unavailable [...] Diagnoses Date Provider Providers Copied on Encounter [facility], [address] [place] [address] [address], [place], [place], [address], tel:[phone] SEC [place] Professional 1 month post op (chief complaint) Surgery follow-up examination 7 Nasim Barrios. [address], [facility] A, [place], [place], [address], [place]. tel:[phone] [facility], [address] [place] [address] [address], [place], [place], [address], [place] tel:[phone] SEC [place] Professional 1 wk CAT PO (chief complaint) Surgery follow-up examination 7 Nasim Barrios. [address], [address], [place], [place], [address], [place]. tel:[phone] [facility], [address], [place], [place], [address], [place] tel:[phone] [place] Professional Post-Op (chief complaint) No Information 7 Joselyn Palafox. [address], [address], [place], [place], [address], [place]. tel:[phone] Referring Provider: Denis Bernal, [address], [place], [address] . tel:[phone] [facility], [address], [place], [place], [address], [place] tel:[phone] [facility] No Information 7 Nasim Barrios. [address], [address] [place], [place], [address], [place]. tel:[phone] Referring Provider: Denis Bernal, [address], [place], [address] . tel:[phone] [facility], [address], [place], [place], [address], [place] tel:[phone] SEC [place] [address] No Information 7 Nasim Barrios. [address], [address] [place], [place], [address], [place]. tel:[phone] [facility], [address], [place], [place], [address], [place] tel:[phone] SEC [place] [address] No Information 0 7 Nasim Barrios. [address], [address] [place], [address], [place]. tel:[phone] [facility], [address], [place], [place], [address], [place] tel:[phone] SEC [place] Professional 1 month post op (chief complaint) No Information 7 Nasim Barrios. [address], [address] [place], [address], [place]. tel:[phone] [facility], [address], [place], [place], [address], tel:[phone] [place] Professional 1 wk PO (chief complaint) No Information 7 Joselyn Palafox. [address], [place], [place], [address], . tel:[phone] Referring Provider: Denis Bernal, [address], [place], [address] . tel:[phone] [facility], [address], [place], [place], [address], tel:[phone] SEC [place] Professional 1 day PO PCIOL (chief complaint) No Information 6 Nasim Barrios. [address], [address] [place], [address], . tel:[phone] Referring Provider: Denis Bernal, [address], [place], [address] . tel:[phone] [facility], [address], [place], [place], [address], [place] tel:[phone] [facility] No Information 6 Nasim Barrios. [address], [address] [place], [place], [address], . tel:[phone] Referring Provider: Denis Bernal, [address] [place] [place], [address] . tel:[phone] [facility], [address], [place], [place], [address], [place] tel:[phone] SEC [place] N [place] No Information 6 Nasim Barrios. [address], [address] [place], [place], [address], [place]. tel:[phone] Office/outpat ient Visit, Est [facility], [address], [place], [place], [address], [place] tel:[phone] [place] Professional Cataract evaluation (chief complaint) No Information 6 Nasim Barrios. [address], [address] [place], [place], [address], [place]. tel:[phone] Referring Provider: Denis Bernal, [address], [place], [address] . tel:[phone] [facility], [address], [place], [place], [address], [place] tel:[phone] [place] Professional blurry vision (chief complaint) No Information 6 Nasim Barrios. [address], [facility] [place], [place], [address], [place]. tel:[phone] [facility], [address], [place], [place], [address], [place] tel:[phone] SEC Bimal [place] No Information 6 Nasim Barrios. [address], [address] [place], [place], [address], [place]. tel:[phone] Family History Family Member Type Diagnosis Age At Onset Problem (finding) Family history of Diabe hailee mellitus Sister Problem (finding) crossed eyes Payers Payer name Insurance type Covered constitution party ID Authoriza tion(s) No Information Social [...] as scheduled Related to Surgery follow-up examination Impression/Plan - 1 month s/p Phaco IOL OD. Patient has healed well. All post operative medications are finished. Vision is good and IOP is stable. Patient elects to proceed with OS CE as scheduled. Follow up - Proceed with OS CE as scheduled Impression/Plan - Go od post op results [...] Dates (start - stop) Status Members No Information"
--- OUTSIDE RECORDS SUMMARY | 2024-09-08 12:27 | XMS_ITS | Encounter Summary ---
Author Organization [facility] Address [facility] [place] [address] Care Team Providers Care Concert Or Lecture Hall Manager Name Role Phone Gerald Bell MD, Robert Unavailable [phone] Trudi Carr [facility]- Unavailable [phone] Mini Martell MD Unavailable [phone] Stephanie Connolly MANUFACTURING APPLICATIONS ENGINEER Primary Care Provider [phone] Encounter Details Date Type Department Care Team (Late st Contact Info) Description 10/16/2018 Prep for Procedure [facility] Day Services [id number] [place] [address] [place] [address] [facility] [address] [place] [address] Social History Tobacco Use Types Packs/Day Years Used Date Smoking Tobacco: Never Smokeless Tobacco: Never Alcohol Use Standard Drinks/Week Comments Yes 1.7 (1 standard drink = 0.6 oz p ure alcohol) 1-2 drinks weekly Sex and Gender Information Value Date Recorded Sex Assigned at Male 05/26/2024 9:59 AM SILVICULTURE FORESTER Legal Sex Male 8:35 PM CDT Gender [...] Description 09/14/2024 9:20 AM CDT Office Visit [facility] [address] [address] Stephanie Connolly, [facility] [address] [place] [address] 01/05/2025 12:40 PM CDT Office Visit [facility] [address] [address] Mini Martell MD [address] [facility], [address] [address] 09/05/2025 10:30 AM CDT [facility] [address] [place] [phone] Trudi Carr, [facility]- [address] [facility] [address] [place] [address] documented as of this encounter Results * ECG 12-Lead (07/20/2019 12:10 PM CDT) 07/20/2019 12:1 0 PM CDT Narrative [facility] ([facility]) RAD - 07/21/2019 8:07 AM CDT [facility] Test Date: 2019-07-20 Pat Name: KARTHIK SPENCE Department: Room: Gender: Male Ctc Operator: : 1950 Requested By: DWAYNE OLVERA Order Number: [id number] Reading MD: Guanakito Palencia Measurements Intervals [place] Rate: 80 P: MN: 0 QRS: -23 QRSD: 90 T: 30 QT: 390 QTc: 453 Interpretive Statements ATRIAL FIBRILLATION BORDERLINE LEFT AXIS DEVIATION [QRS AXIS < -20] NONSPECIFIC T-WAVE ABNORMALITY ABNORMAL RHYTHM ECG Compared to ECG 10/26/2018 13:58:32 Ventricular premature complex(es) no longer present Aberrant conduction of supraventricular beat(s) no longer present T-wave abnormality still present Procedure Note Guanakito Palencia MD - 07/21/2019 [facility] Test Date: 2019-07-20 Pat Name: KARTHIK SPENCE Department: Room: Gender: Male Ctc Operator: : 1950 Requested By: DWAYNE OLVERA Order Number: [id number] Reading MD: Guanakito Palencia Measurements Intervals [place] Rate: 80 P: MN: 0 QRS: -23 QRSD: 90 T: 30 QT: 390 QTc: 453 Interpretive Statements ATRIAL FIBRILLATION BORDERLINE LEFT AXIS DEVIATION [QRS AXIS < -20] NONSPECIFIC T-WAVE ABNORMALITY ABNORMAL RHYTHM ECG Compared to ECG 10/26/2018 13:58:32 Ventricular premature complex(es) no longer present Aberrant conduction of supraventricular beat(s) no longer present T-wave abnormality still present us Dwayne Olvera MD ECG ORDERABLES Final Result Performing Organization Address [facility] Co de Phone Number [facility] * MRSA SCREENING (07/20/2019 11:05 AM CDT) SPEC DESCRIPTION NASAL 07/20/2019 10:56 AM CDT [facility] SPECIAL REQUESTS NO SPECIAL REQUEST 07/20/2019 10:56 AM CDT [facility] CULTURE RESULT NO METHICILLIN RESISTANT STAPH AUREUS ISOLATED 07/27/2019 7:26 AM CDT [facility] SPECIMEN FROM INTERNAL NOSE / Unknown 07/20/2019 11:05 AM CDT 07/20/2019 11:06 AM CDT us Dwayne Olvera MD MICROBIOLOGY - GENERAL ORDERABLE S Final Result Performing Organization Address [facility]/ZIP Co de Phone Number [facility] [address] [place] [address], documented in this encounter Visit Diagnoses Diagnosis Preop testing- Primary Preoperative examination, unspecified Preop testing Preoperative examination, unspecified documented in this encounter Care Teams Concert Or Lecture Hall Manager Relationship Specialty Start Date End Date Stephanie Connolly FNP [address] [place] [phone] PCP - General NURSE PRACTITIONER 01/05/18 Guanakito Duarte MD [facility] CARDIOVASCULAR DISEASE 01/15/17 Trudi Carr, [facility]- [address] [place] [address] [address] [place] [address] NURSE PRACTITIONER 01/15/17 Mini Martell MD [address] [place] [address] NEPHROLOGY 04/16/17 documented as of this encounter
--- OUTSIDE RECORDS SUMMARY | 2024-09-08 12:27 | XMS_ITS | Encounter Summary ---
Author Organization [facility] Address [facility] [place] [address] Care Team Providers Care Gum Remover Name Role Phone Gerald Bell MD, Robert Unavailable [phone] Trudi Carr ANP- Unavailable [phone] Mini Martell MD Unavailable [phone] Stephanie Connolly SALES ACCOUNT LEADER Primary Care Provider [phone] Encounter Details Date Type Department Care Team (Late st Contact Info) Description 08/06/2023 MyCSonopiat Message Enc [facility] [address] [place], [place] [phone] Stephanie Connolly FNP [address] [place] [phone] Medication Social History Tobacco Use Types Packs/Day Years Used Date Smoking Tobacco: Never Smokeless Tobacco: Never Comments:Provider to cosmetic counselor Alcohol Use Standard Drinks/Week Comments Yes [...] and Family Once a week 07/26/2019 Attends [employer] Services Never 07/25 Active Member of Clubs or Organizations No 07/26/2019 Attends Club or Organization Meetings Never 07/26/2019 Marital Status 07/26/2019 Overall Financial Resource Strain (CARDIA) Answe r Date Recorded Difficulty of Paying Living Expenses Not hard at all 07/26/2019 PHQ-2 Answer Date Recorded Patient Health Questionnaire-2 Score 0 12/26/2022 [facility] - Occupational Stress [...] Sex Assigned at Male 05/26/2024 9:59 AM SIZING SPRAYER Legal Sex Male 8:35 PM CDT Gender [...] Description 09/14/2024 9:20 AM CDT Office Visit [address] [place], [place] [phone] Stephanie Connolly FNP [address] [place] [address] [place] [address] 01/05/2025 12:40 PM CDT Office Visit [facility] [address] [place] [phone] Mini Martell MD [address] [place] [address] 09/05/2025 10:30 AM CDT Office Visit [facility] [address] [facility] [place] [phone] Trudi Carr, ANP-BC [address] [facility] [place] [place] [address] [place] [address] documented as of this encounter Goals Goal Patient Goal Type Associated Problems Recent Progress Patient-Stated? Author Return home with General No Peggy Kellogg, ASSET AVAILABILITY LEADER Return home with General No Peggy Kellogg, ASSET AVAILABILITY LEADER documented as of this encounter Visit Diagnoses Not on filedocumented in this encounter Additional Health Concerns Assessment Noted Time PHQ-9 Depression Total Score: 1 12/27/19 21 11:31 AM CDT documented as of this encounter Care Teams Gum Remover Relationship Specialty Start Date End Date Stephanie Connolly FNP [address] [place] [address] PCP - General NURSE PRACTITIONER 01/05/18 Guanakito Duarte MD [place] [facility] [employer] CARDIOVASCULAR DISEASE 01/15/17 Trudi Carr, ANP-BC [address] [facility] [place] [address] [place] [address] NURSE PRACTITIONER 01/15/17 Mini Martell MD [address] [place] [address] NEPHROLOGY 04/16/17 documented as of this encounter
--- OUTSIDE RECORDS SUMMARY | 2024-09-08 12:27 | XMS_ITS | Clinical Summary ---
Author Organization [facility] Address [facility] [place] [address] Care Team Providers Care Facility Supervisor Name Role Phone Gerald Bell MD, Robert Unavailable [phone] Trudi Carr ANP- Unavailable [phone] Mini Martell MD Unavailable [phone] Stephanie Connolly MEDICAID ANALYST Primary Care Provider [phone] Allergies No known active allergies Medications B-D ULTRA-FINE 33 LANCETS MiscIndications: Type 2 diabetes mellitus with stage 3 chronic kidney disease, without long-term current use of insulin ([facility]) lancets 33 gauge miscellaneous miscuse as directed to test blood sugars BID; Diagnosis: DM type II; 250.00 200 each 2 022 Active Glucose Blood test stripIndications :Type 2 diabetes mellitus with stage 3 chronic kidney disease, without long-term current use of insulin, unspecified whether stage 3a or 3b CKD ([facility] HHS/[facility]) 1 strip by Other route 2 (two) [...] 3.125 MG tabletIndication s:Atrial fibrillation, unspecified type ([facility] HHS/HCC) take 1 tablet twice a day 180 tablet 3 024 Active ELIQUIS 5 MG tabletIndication s:Atrial fibrillation, unspecified type ([facility] HHS/HCC) take 1 tablet twice a day 180 tablet 3 024 Active metFORMIN ER (GLUCOPHAGE-XR) 500 MG 24 hr tabletIndication s:Type 2 diabetes mellitus with hyperglycemia, without long-term current use of insulin ([facility] HHS/HCC) TAKE 2 TABLETS DAILY BEFORE SUPPER [...] kidney disease) stage 4, GFR 15-29 ml/min ([facility] HHS/HCC) TAKE 1 TABLET DAILY 90 tablet [...] hyperglycemia, without long-term current use of insulin ([facility] HHS/HCC) TAKE 1 TABLET TWICE A DAY WITH MEALS 180 tablet 025 Active dulaglutide (TRULICITY) 3 MG/0.5ML injectionIndicat ions:Type 2 diabetes mellitus with hyperglycemia, without long-term current use of insulin ([facility] HHS/HCC) INJECT 3 MG UNDER THE SKIN [...] hyperglycemia, without long-term current use of insulin ([facility] HHS/[facility]) Take 1 tablet (3 mg total) by mouth 2 (two) times daily with meals. 180 tablet 1 024 2024 Discontinued dulaglutide (TRULICITY) 3 MG/0.5ML injectionIndicat ions:Type 2 diabetes mellitus with hyperglycemia, without long-term current use of insulin ([facility] HHS/HCC) Inject 3 mg into the skin once a week. 12 Pen 1 024 2024 Discontinued Active Problems Problem Noted Date Diagnosed Date Type 2 diabetes mellitus wit h hyperglycemia, without long-term current use of insulin ([facility] HHS/HCC) 03/03/2024 Peripheral polyneuropathy 03/03/2024 Screening for colon cancer 07/15/2022 Overview (07/15/2022): Added automatically from request for surgery [id number] Personal history of colonic polyps 07/15/2022 Overview (07/15/2022): Added automatically from request for surgery [id number] CKD (chronic kidney disease) stage 4, GFR 15-29 ml/min ([facility]) 05/01/2021 Hyperkalemia 05/01/2021 Spinal stenosis of lumbar re gion with neurogenic claudication 10/10/2020 Chronic bilateral low back pain without sciatica 10/10/2020 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 ([facility]) 06/27/2020 Abdominal wall hematoma, subsequent encounter Hernia of abdominal cavity 08/06/2019 S/P hernia repair 07/27/2019 Incisional hernia without obstruction or gangren e 06/08/2019 Overview (06/08/2019): Added automatically from request for surgery [id number] Adenoma of transverse colon 10/22/2018 Assessment & [...] 05/06/2017 Ventricular enlargement, right 04/29/2017 Diabetic retinopathy ([facility]) 7 Renal osteodystrophy 10/04/2015 Prostatism 05/19/2014 Overview (06/26/2018): Date Onset: 05/19/2014 Erectile dysfunction 03/06/2012 Overview (06/26/2018): Date Onset: 09/06/2011 Gout 09/06/2011 Hyperlipidemia 09/06/2011 Atrial fibrillation ([facility]) Essential hypertension Dyslipidemia Diabetes ([facility]) Mass of colon Coronary artery calcification Resolved Problems Problem Noted Date Diagnosed Date Resolved Date Encounter for preventive health examination 09/18/2015 01/21/2020 Encounters Date Type Department Care Team Description 09/06/2024 Telephone [facility] [address] [place] [address] Trudi Carr ANP-BC Record Request 09/06/2024 Telephone [facility] [address] [place] [address] Trudi Carr ANP-BC Forms 08/23/2024 10:00 AM CDT Office Visit [facility] [address] [place] [address] Trudi Carr ANP-BC Follow Up 08/23/2024 Travel 08/17/2024 9:24 AM CDT - 08/17/2024 11:59 PM CDT Hospital Encounter [facility] [address] [place] [address] Stephanie Connolly FNP Discharge Disposition: Home or Self Care (Routine Discharge) 08/17/2024 Telephone [facility] [address] [place] [address] Trudi Carr ANP-BC Records 08/17/2024 Travel 08/12/2024 Abstract [facility] [address] [place] [address] Stephanie Connolly FNP 08/02/2024 MyChart Message Enc [facility] [address] [place] [address] Stephanie Connolly, [place] Blood work 08/02/2024 Telephone [facility] [address] [place] [address] Trudi Carr, ANP- Surgical Clearance 07/28/2024 Scan [facility] SRVCS Scanned, [facility] 07/06/2024 8:59 AM SILK SCREEN LAYOUT DRAFTER - 07/06/2024 11:59 PM SILK SCREEN LAYOUT DRAFTER Hospital Encounter [facility] [address] [place] [address] Vaishnavi Sung MD Discharge Disposition: Home or Self Care (Routine Discharge) 07/06/2024 Travel 07/02/2024 9:50 AM SILK SCREEN LAYOUT DRAFTER - 07/02/2024 11:59 PM SILK SCREEN LAYOUT DRAFTER Hospital Encounter [facility] [address] [place] [address] Vaishnavi Sung MD Discharge Disposition: Home or Self Care (Routine Discharge) 07/02/2024 Travel from Last 3 Months Immunizations Immunization Administration Dates Next Due Fluzone High Dose (IIV, triv alent, 0.5mL) 03/03/2024 Fluzone High Dose - >Age 65 (Prefilled Syringe) 02/18/2023,03/06/2022,02/21/2021,2019,04/14/2019 Influenza (Generic) 02/25/2018,02/26/2017,2015 Pneumococcal (Generic) 04/24/2016 Pneumococcal (Prevnar 13) 04/14/2019 Pneumococcal (Prevnar 20) 08/25/2023 Shingrix 05/18/2019,03/03/2019 Tdap (Generic) 08/25/2023 Zoster (Zostavax) 40381 Unt/0.65Ml 05/19/2014 Family History Medical History Relation Comments Heart Attack Father Cancer Sister 1 Heart Attack Sister 1 Hypertension Sister 1 Stroke Sister 1 Aneurysm Sister 2 Anesthesia Neg Hx Anesthesia problems Neg Hx Relation Status Comments Father NE age 49 Maternal Grandfather Maternal Grandmother Mother Paternal Grandfather Paternal Grandmother Sister 1 Sister 2 Social History Tobacco Use Types Packs/Day Years Used Date Smoking Tobacco: Never Smokeless Tobacco: Never Tobacco Cessation:Counseling Given: Not Answered Comments:Provider to marriage counselor minister Alcohol Use Standard Drinks/Week Comments Not Currently [...] and Family Once a week 07/26/2019 Attends Yazidi Services Never 07/25 Active Member of Clubs or Organizations No 07/26/2019 Attends Club or Organization Meetings Never 07/26/2019 Marital Status 07/26/2019 Overall Financial Resource Strain (CARDIA) Answe r Date Recorded Difficulty of Paying Living Expenses Not hard at all 07/26/2019 PHQ-2 Answer Date Recorded Patient Health Questionnaire-2 Score 0 03/03/2024 [facility] - [...] Sex Assigned at Male 05/26/2024 9:59 AM SILK SCREEN LAYOUT DRAFTER Legal Sex Male 8:35 PM CDT Gender [...] 9:20 AM CDT Office Visit [facility] [address] [place] [address] Stephanie Connolly, MEDICAID ANALYST [address] [place] [address] 01/05/2025 12:40 PM CDT Office Visit [facility] [address] [address] Mini Martell MD [address] [place] [address] 09/05/2025 10:30 AM CDT Office Visit [facility] [place] [phone] Trudi Carr, ANP- [address] [facility] [facility] [address] [place] [phone] Health Maintenance Due Date Last Done Comments Annual Medicare Wellness Visit 2016 PHQ-2 (Physician [place]) 05/12/2024 03/03/2024 Diabetes: Retinopathy Eye Exam 11/04/2024 [...] Kellogg MSW Return home with General No Pegyg Kellogg MSW Medical Devices Implanted Type Area Petroleum Refining Equipment Operator Device Identifier Shelf Expiration Date Model / Serial / Lot Mesh Surgical C-Qur Tacshield 8x6in Symmetrical Fixation Apron Sterile Polypropylene Paradise-3 Fatty Acid Moore Hernia - [id number] Implanted:Qty: 1 on 07/26/2019 by Darwin Espino MD at [facility] [employer] CARDIOVASCULAR [employer] 04/08/2020 [id number] / [id number] / Procedures Procedure Name Priority Date/Time Associated Diagnosis Comments ELECTROCARDIOGRAM (NON MIDMARK ACQUIRED) Routine 08/23/2024 11:13 AM CDT Permanent atrial fibrillation ([facility] HHS/HCC) Coronary artery calcification COMPREHENSIVE METABOLIC PANEL Routine 08/17/2024 9:34 AM CDT Type 2 diabetes mellitus with stage 3 chronic kidney disease, without long-term current use of insulin, unspecified whether stage 3a or 3b CKD ([facility] HHS/HCC) Essential hypertension Mixed hyperlipidemia Chronic renal impairment, stage 3a ([facility]/HCC) HEMOGLOBIN, GLYCOSYLATED Routine 025 9:34 AM CDT Type 2 diabetes mellitus with stage 3 chronic kidney disease, without long-term current use of insulin, unspecified whether stage 3a or 3b CKD ([facility] HHS/HCC) LIPID PANEL Routine 08/17/2024 9:34 AM CDT Type 2 diabetes mellitus with stage 3 chronic kidney disease, without long-term current use of insulin, unspecified whether stage 3a or 3b CKD ([facility] HHS/HCC) Essential hypertension Mixed hyperlipidemia CBC W/DIFF AUTOMATED Routine 08/17/2024 9:34 AM CDT Type 2 diabetes mellitus with stage 3 chronic kidney disease, without long-term current use of insulin, unspecified whether stage 3a or 3b CKD ([facility] HHS/HCC) Essential hypertension Mixed hyperlipidemia Chronic renal impairment, stage 3a ([facility]/HCC) CT LUMB SPINE WO CON Routine 07/06/2024 9:14 AM SILK SCREEN LAYOUT DRAFTER Spondylosis without myelopathy or radiculopathy, lumbar region XR SCOLIOSIS UPRT OR SUP AP+LAT Routine 07/02/2024 10:39 AM SILK SCREEN LAYOUT DRAFTER Lumbar spondylosis XR LUMB SPINE+OBLS 5V Routine 07/02/2024 10:39 AM SILK SCREEN LAYOUT DRAFTER Lumbar spondylosis DIABETIC RETINOPATHY EXAM (POSITIVE)(SCAN ORDER) Routine 11/05/2023 HEPATITIS C ANTIBODY Routine 02/18/2023 10:05 AM CDT Need for hepatitis C screening test from Last 3 Months or Most Recently Relevant to Health Maintenance Results * ELECTROCARDIOGRAM (NON MIDMARK ACQUIRED) (08/23/2024 11:13 AM CDT) 08/23/2024 11:1 3 AM CDT [facility] CARDIOVASCULAR - 08/26/2024 6:56 [place] [address] Test Date: 2024-08-23 Pat Name: KENTRELL SPENCE Department: 176 Room: Gender: Male Header Dock: : 1950 Requested By: TATYANA ALICEA Order Number: [id number] Reading MD: Osvaldo Coleman Measurements Intervals [place] Rate: 70 P: 0 NC: 0 QRS: -51 QRSD: 102 T: -19 QT: 412 QTc: 446 Interpretive Statements ATRIAL FLUTTER/TACHYCARDIA PATTERN CONSISTENT WITH PULMONARY DISEASE LEFT ANTERIOR FASCICULAR BLOCK Since prior tracing, atrial flutter now present Procedure Note Osvaldo Coleman MD - 08/26/2024 [place] [address] Test Date: 2024-08-23 Pat Name: KENTRELL SPENCE Department: 176 Room: Gender: Male Header Dock: : 1950 Requested By: TATYANA ALICEA Order Number: [id number] Reading : Osvaldo Coleman Measurements Intervals [place] Rate: 70 P: 0 NC: 0 QRS: -51 QRSD: 102 T: -19 QT: 412 QTc: 446 Interpretive Statements ATRIAL FLUTTER/TACHYCARDIA PATTERN CONSISTENT WITH PULMONARY DISEASE LEFT ANTERIOR FASCICULAR BLOCK Since prior tracing, atrial flutter now present Tatyana Alicea MD PROCEDURES-ORDERABLE NO CHARGE F inal Result ENIO PAN * (ABNORMAL) HEMOGLOBIN, GLYCOSYLATED (08/17/2024 9:34 AM CDT) HGB A1C 6.8(H) <5.7 % 08/18/2024 6:41 AM CDT [facility] Comment: ADA GUIDELINES 2010 5.7 TO 6.4% INCREASED RISK OF DIABETES > OR = 6.5% CONSISTENT WITH DIABETES ESTIMATED AVG GLUCOSE 148 mg/dL 08/18/2024 6:41 AM CDT [facility] 08/17/2024 9:34 AM CDT Stephanie Connolly MEDICAID ANALYST LABORATORY Final Result Performing Organization Address [facility]/ZIP Co de Phone Number [facility] [address] [place] [id number], [place] [phone] * (ABNORMAL) COMPREHENSIVE METABOLIC PANEL (08/17/2024 9:34 AM CDT) GLUCOSE 162(H) 70 - 99 MG/DL 08/17/2024 10:37 AM CDT [facility] BUN 28(H) 7 - 18 MG/DL 08/17/2024 10:37 AM CDT [facility] CREATININE S/P/B 1.84(H) 0.50 - 1.20 MG/DL 08/17/2024 10:37 AM CDT [facility] SODIUM S/P/B 139 136 - 145 MMOL/L 08/17/2024 10:37 AM CDT [facility] POTASSIUM S/P/B 4.9 3.5 - 5.1 MMOL/L 08/17/2024 10:37 AM CDT [facility] CHLORIDE S/P/B 102 100 - 108 MMOL/L 08/17/2024 10:37 AM CDT [facility] CO2 28.4 21.0 - 32.0 MMOL/L 08/17/2024 10:37 AM CDT [facility] CALCIUM S/P/B 9.7 8.5 - 10.1 MG/DL 08/17/2024 10:37 AM CDT [facility] BILIRUBIN TOTAL S/P/B 0.7 0.2 - 1.2 MG/DL 08/17/2024 10:37 AM CDT [facility] Comment: THIS ASSAY IS NOT RECOMMENDED FOR PATIENTS UNDERGOING TREATMENT WITH ELTROMBOPAG DUE TO THE POTENTIAL FOR FALSELY ELEVATED RESULTS. TOTAL PROTEIN S/P/B 7.6 6.4 - 8.2 G/DL 08/17/2024 10:37 AM CDT [facility] ALBUMIN S/P/B 3.7 3.4 - 5.0 G/DL 08/17/2024 10:37 AM CDT [facility] AST 20 15 - 37 U/L 08/17/2024 10:37 AM CDT [facility] ALT 34 16 - 60 U/L 08/17/2024 10:37 AM CDT [facility] ALKALINE PHOSPHATASE S/P/B 81 50 - 136 U/L 08/17/2024 10:37 AM T [facility] ANION GAP 8.6 5.0 - 15.0 MMOL/L 08/17/2024 10:37 AM CDT [facility] BUN CREATININE RATIO 15.2 6 - 26 08/17/2024 10:37 AM CDT [facility] A/G RATIO 0.9(L) 1.0 - 2.5 RATIO 08/17/2024 10:37 AM T [facility] GFR ESTIMATE 38(L) >90 ML/MIN/1.7 3 M2 08/17/2024 10:37 AM CDT [facility] Comment: NOTE: eGFR is not calculated for patients <18 years of age. This is an estimated GFR calculation using the new CKD EPI creatinine equation without race and so does not require a correction factor for race. This estimated GFR should not be used for calculating drug doses. 08/17/2024 9:34 AM CDT us Stephanie Yusuf Mohsen MEDICAID ANALYST LABORATORY Final Result [facility] [address] [place] [address], * (ABNORMAL) LIPID PANEL (08/17/2024 9:34 AM CDT) CHOLESTEROL 131 <200 MG/DL 08/17/2024 1:55 PM CDT [facility] TRIGLYCERIDES 182(H) <150 MG/DL 08/17/2024 1:55 PM CDT [facility] HDL 41 >40.0 MG/DL 08/17/2024 1:55 PM CDT [facility] LDL (CALCULATED) 54 <100 MG/DL 08/17/2024 1:55 PM CDT [facility] NON HDL CHOLESTEROL 90 <130 MG/DL 08/17/2024 1:55 PM CDT [facility] CHOL/HDL RATIO 3.2 0.0 - 4.5 08/17/2024 1:55 PM CDT [facility] VLDL CALCULATION 36 5 - 55 MG/DL 08/17/2024 1:55 PM CDT [facility] LIPID INTERPRETATION 08/17/2024 1:55 PM CDT [facility] Comment: [facility] REPORT RECOMMENDATIONS: ADULT CHILD LOW RISK: CHOLESTEROL <200 <170 TRIGLYCERIDE <150 --- HDL >=60 --- LDL <100 <110 BORDERLINE: CHOLESTEROL 200-239 170-199 TRIGLYCERIDE 150-199 --- HDL 40-59 --- LDL 100-159 110-129 HIGH RISK: CHOLESTEROL >=240 >=200 TRIGLYCERIDE >=200 --- HDL <40 --- LDL >=160 >=130 08/17/2024 9:34 AM CDT Stephanie Connolly MEDICAID ANALYST LABORATORY Final Result [facility] [address] [place] [address], [place] [phone] * CBC W/DIFF AUTOMATED (08/17/2024 9:34 AM CDT) Pathologist [facility] WBC 8.08 4.50 - 11.00 x10'3/uL 08/17/2024 10:06 AM CDT [facility] RBC 5.22 4.50 - 5.90 x10'6/uL 08/17/2024 10:06 AM CDT [facility] HGB 16.2 14.0 - 18.0 G/DL 08/17/2024 10:06 AM CDT [facility] HCT 46.1 43.0 - 54.0 % 08/17/2024 10:06 AM CDT [facility] MCV 88.3 80.0 - 100.0 FL 08/17/2024 10:06 AM CDT [facility] MCH 31.0 26.0 - 34.0 PG 08/17/2024 10:06 AM CDT [facility] MCHC 35.1 31.0 - 37.0 G/DL 08/17/2024 10:06 AM CDT [facility] RDW 13.3 11.6 - 14.8 % 08/17/2024 10:06 AM CDT [facility] PLT 177 130 - 400 x10'3/uL 08/17/2024 10:06 AM CDT [facility] MPV 9.0 7.0 - 12.0 FL 08/17/2024 10:06 AM CDT [facility] CBC COMMENT AUTOMATED RBC MORPHOLOGY AND PLATELET EVALUATION NORMAL 08/17/2024 10:[address] [facility] NEUTROPHILS % 51.0 40.0 - 74.0 % 08/17/2024 10:06 AM CDT [facility] LYMPHOCYTES % 36.3 14.0 - 46.0 % 08/17/2024 10:06 AM CDT [facility] MONOCYTES % 8.7 4.0 - 13.0 % 08/17/2024 10:06 AM CDT [facility] EOSINOPHILS 3.1 0.0 - 7.0 % 08/17/2024 10:06 AM CDT [facility] BASOPHILS 0.5 0.0 - 3.0 % 08/17/2024 10:06 AM CDT [facility] IMMATURE GRANS % 0.4 0.0 - 0.43 % 08/17/2024 10:06 AM CDT [facility] NRBC % 0.0 % 08/17/2024 10:06 AM CDT [facility] ABS. NEUTROPHILS TOTAL 4.13 1.69 - 7.81 x10'3/uL 08/17/2024 10:[address] [facility] ABS. LYMPHOCYTES 2.93 0.21 - 5.42 x10'3/uL 08/17/2024 10:06 AM CDT [facility] ABS. MONOCYTES 0.70 0.04 - 1.37 x10'3/uL 08/17/2024 10:06 AM CDT [facility] ABS. EOSINOPHILS 0.25 0.00 - 0.68 x10'3/uL 08/17/2024 10:06 AM CDT [facility] ABS. BASOPHILS 0.04 0.00 - 0.08 x10'3/uL 08/17/2024 10:06 AM CDT [facility] ABS. IMMATURE GRANULOCYTES 0.03 0.00 - 0.06 x10'3/uL 08/17/2024 10:06 AM CDT [facility] ABS. NUCLEATED RBC'S 0.00 0.00 - 0.01 x10'3/uL 08/17/2024 10:06 AM CDT [facility] 08/17/2024 9:34 AM CDT us Stephanie Connolly MEDICAID ANALYST LABORATORY Final Result [address] [place] [address], [place] * CT LUMB SPINE WO CON (07/06/2024 9:14 AM SILK SCREEN LAYOUT DRAFTER) Anatomical Region Laterality Modality Spine Computed Tomogra phy 07/07/2024 8:34 AM SILK SCREEN LAYOUT DRAFTER Impressions 07/07/2024 8:42 AM SILK SCREEN LAYOUT DRAFTER IMPRESSION: 1. Severe bilateral neural foraminal stenosis [...] 07/07/2024 8:34 AM Narrative 07/07/2024 8:42 AM SILK SCREEN LAYOUT DRAFTER [address] [place] [address] EXAMINATION:Lumbar CT without contrast 07/06/2024 INDICATION:Spondylosis without [...] Procedure Note Allan Jurado MD - 07/07/[address] [place] [address] EXAMINATION:Lumbar CT without contrast 07/06/2024 INDICATION:Spondylosis without [...] UPRT OR SUP AP+LAT (07/02/2024 10:39 AM SILK SCREEN LAYOUT DRAFTER) Anatomical Region Laterality Modality Spine Computed Tomogra phy 07/03/2024 9:52 AM SILK SCREEN LAYOUT DRAFTER Impressions 07/03/2024 9:54 AM SILK SCREEN LAYOUT DRAFTER IMPRESSION: Minimal gentle dextroconvex curvature thoracic spine. Ordered By: VAISHNAVI SUNG Interpreted By: Daniel Potts MD, 07/03/2024 9:52 AM Narrative 07/03/2024 9:54 AM SILK SCREEN LAYOUT DRAFTER [address] [place] [address] Examination: XR SCOLIOSIS UPRT OR SUP AP+LAT [...] Procedure Note Daniel Potts MD - 07/03/[address] [place] [address] Examination: XR SCOLIOSIS UPRT OR SUP AP+LAT [...] XR LUMB SPINE+OBLS 5V (07/02/2024 10:39 AM SILK SCREEN LAYOUT DRAFTER) Anatomical Region Laterality Modality Spine Computed Tomogra phy 07/03/2024 9:56 AM SILK SCREEN LAYOUT DRAFTER Impressions 07/03/2024 9:59 AM SILK SCREEN LAYOUT DRAFTER IMPRESSION: 1. No acute abnormality. 2. Diffuse degenerative changes. Ordered By: VAISHNAVI SUNG Interpreted By: Daniel Potts MD, 07/03/2024 9:56 AM Narrative 07/03/2024 9:59 AM SILK SCREEN LAYOUT DRAFTER [address] [place] [address] Examination: XR LUMB SPINE+OBLS 5V Exam time: [...] Procedure Note Daniel Potts MD - 07/03/[address] [place] [address] Examination: XR LUMB SPINE+OBLS 5V Exam time: [...] SCANNING Final Resu lt Performing Organization Address City/[facility]/ZIP Co de Phone Number [facility] ONBASE * HEPATITIS C AB ([facility] ONLY) (02/18/2023 10:05 AM CDT) HEPATITIS C AB NON-REACTI VE NON-REACTI VE 02/18/2023 3:21 PM CDT [facility] 02/18/2023 10:0 5 AM CDT Stephanie Connolly MEDICAID ANALYST LABORATORY Final Result Performing Organization Address City/[facility] Co de Phone Number [facility] [address] [place] [address], [place] [phone] from Last 3 Months or Most Recently Relevant to Health Maintenance Insurance [facility] [employer] [place], [address] MEDICARE MEDICARE [facility] Advance Directives Documents on File Type Date Recorded 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
--- OUTSIDE RECORDS SUMMARY | 2024-09-08 12:27 | XMS_ITS | Encounter Summary ---
Author Organization [facility] Address Pending sale to [facility] [place] [address] Care Team Providers Care Frog Farmer Name Role Phone Gerald Bell MD, Robert Unavailable [phone] Trudi Carr [facility]- Unavailable [phone] Mini Martell MD Unavailable [phone] Stephanie Connolly HOME PLANNING CONSULTANT SALESPERSON Primary Care Provider [phone] Encounter Details Date Type Department Care Team (Late st Contact Info) Description 10/16/2018 Pre-Procedure Call [facility] One Day Services [address] [place] [address] [place] [address] [facility] [address] [place] [address] Social History Tobacco Use Types Packs/Day Years Used Date Smoking Tobacco: Never Smokeless Tobacco: Never Alcohol Use Standard Drinks/Week Comments Yes 1.7 (1 standard drink = 0.6 oz p ure alcohol) 1-2 drinks weekly Sex and Gender Information Value Date Recorded Sex Assigned at Male 05/26/2024 9:59 AM COMMUNITY ASSOCIATE Legal Sex Male 8:35 PM CDT Gender [...] 9:20 AM CDT Office Visit [facility] [address] [place] [address] Stephanie Connolly FNP [address] [place] [address] 01/05/2025 12:40 PM CDT Office Visit [facility] Nephrology Specialty Clinic [address] [phone] Mini Martell MD [address] [place] [address] 09/05/2025 10:30 AM CDT Office Visit [facility] [address] [facility] [place] [phone] Trudi Carr ANP-BC [address] [place] [phone] documented as of this encounter Visit Diagnoses Not on filedocumented in this encounter Care Teams Frog Farmer Relationship Specialty Start Date End Date Stephanie Connolly FNP 201 [facility] [place] [address] PCP - General NURSE PRACTITIONER 01/05/18 Guanakito Duarte MD [place] Foreign Exchange Services Manager CARDIOVASCULAR DISEASE 01/15/17 Trudi Carr ANP-BC [address] [place] [phone] NURSE PRACTITIONER 01/15/17 Mini Martell MD [address] [place] [address] NEPHROLOGY 04/16/17 documented as of this encounter
--- OUTSIDE RECORDS SUMMARY | 2024-09-08 12:27 | XMS_ITS | Encounter Summary ---
Author Organization [facility] Address [facility] [place] [address] Care Team Providers Care Patient Registrar Name Role Phone Gerald Bell MD, Robert Unavailable [phone] Trudi Carr ANP- Unavailable [phone] Mini Martell MD Unavailable [phone] Stephanie Connolly ACCOUNTING/FINANCE TUTOR Primary Care Provider [phone] Encounter Details Date Type Department Care Team (Latest Contact Info) Description 01/08/2024 MyChart Message Enc [facility] Gastroenterology Specialty Clinic [address] [address] Wisam Hubbard MD [address] [place] [address] Lab service for polyp testing Social History Tobacco Use Types Packs/Day Years Used Date Smoking Tobacco: Never Smokeless Tobacco: Never Comments:Provider to insurance counselor Alcohol Use Standard Drinks/Week Comments Yes [...] and Family Once a week 07/26/2019 Attends Congregational Services Never 07/25 Active Member of Clubs or Organizations No 07/26/2019 Attends Club or Organization Meetings Never 07/26/2019 Marital Status 07/26/2019 Overall Financial Resource Strain (CARDIA) Answe r Date Recorded Difficulty of Paying Living Expenses Not hard at all 07/26/2019 PHQ-2 Answer Date Recorded Patient Health Questionnaire-2 Score 0 12/30/2023 [facility] - Occupational [...] Sex Assigned at Male 05/26/2024 9:59 AM CAN SOLDERER Legal Sex Male 8:35 PM CDT Gender [...] Description 09/14/2024 9:20 AM CDT [facility] [address] [facility] [place], [place] [phone] Stephanie Connolly, [address] [place] [address] 01/05/2025 12:40 PM CDT Office Visit [facility] Nephrology Specialty Clinic [address] [phone] Mini Martell MD [address] [place] [phone] 09/05/2025 10:30 AM CDT Office Visit [facility] [place] [address] Trudi Carr, ANP- [address] [place] [phone] documented as of this encounter Goals Goal [...] documented as of this encounter Care Teams Patient Registrar Relationship Specialty Start Date End Date Stephanie Connolly FNP 201 [place] [address] PCP - General NURSE PRACTITIONER 01/05/18 Guanakito Duarte MD [place] Jack Tamp Operator CARDIOVASCULAR DISEASE 01/15/17 Trudi Carr, [facility]- [address] [facility] [address] [place] [phone] NURSE PRACTITIONER 01/15/17 Mini Martell MD 200 [place] [address] NEPHROLOGY 04/16/17 documented as of this encounter
--- OUTSIDE RECORDS SUMMARY | 2024-09-08 12:27 | XMS_ITS | Encounter Summary ---
Author Organization [facility] Address [facility] [place] [address] Care Team Providers Care Sample Display Preparer Name Role Phone Gerald Bell MD, Robert Unavailable [phone] Trudi Carr ANP- Unavailable [phone] Mini Martell MD Unavailable [phone] Stephanie Connolly CLINICAL FELLOW Primary Care Provider [phone] Encounter Details Date Type Department Care Team (Late st Contact Info) Description 10/27/2018 Hospital Follow-up Call [facility] Med/Surg [address] [place] [address] Stephanie Qiu, RN Social History Tobacco Use Types Packs/Day Years Used Date Smoking Tobacco: Never Smokeless Tobacco: Never Alcohol Use Standard Drinks/Week Comments Yes 1.7 (1 standard drink = 0.6 oz p ure alcohol) 1-2 drinks weekly Sex and Gender Information Value Date Recorded Sex Assigned at Male 05/26/2024 9:59 AM DEVICE PROCESSING ENGINEER Legal Sex Male 8:35 PM CDT Gender [...] Description 09/14/2024 9:20 AM CDT Office Visit [facility] [address] [facility] [place] [address] Stephanie Connolly, [facility] [address] [place] [address] 01/05/2025 12:40 PM CDT Office Visit [facility] Nephrology Specialty Clinic [address] [phone] Mini Martell MD [address] [place] [address], [address] [phone] 09/05/2025 10:30 AM CDT Office Visit [facility] [place] [address] Trudi Carr, ANP- [address] [facility] [address] [address] documented as of this encounter Visit Diagnoses Not on filedocumented in this encounter Care Teams Sample Display Preparer Relationship Specialty Start Date End Date Stephanie Connolly FNP [address] [place] [address] PCP - General NURSE PRACTITIONER 01/05/18 Guanakito Duarte MD [place] Wildlife Biologist CARDIOVASCULAR DISEASE 01/15/17 Trudi Carr, [place]- [address] [place] [address] [address] [place] [phone] NURSE PRACTITIONER 01/15/17 Mini Martell MD [address] [place] [address] NEPHROLOGY 04/16/17 documented as of this encounter
--- OUTSIDE RECORDS SUMMARY | 2024-09-08 12:27 | XMS_ITS | Encounter Summary ---
Author Organization [facility] Address [facility]6 [place] [address] Care Team Providers Care Machinist Automotive Name Role Phone Gerald Bell MD, Robert Unavailable [phone] Trudi Carr [facility]- Unavailable [phone] Mini Martell MD Unavailable Stephanie Connolly Primary Care Provider [phone] Encounter Details Date Type Department Care Team (Late st Contact Info) Description 03/17/2018 Abstract [facility] Conversion , Generic Conversion, Social History Tobacco Use Types Packs/Day Years Used Date Smoking Tobacco: Never Smokeless Tobacco: Never Alcohol Use Standard Drinks/Week Comments Yes 0 (1 standard drink = 0.6 oz pur e alcohol) 2 drink per week Sex and Gender Information Value Date Recorded Sex Assigned at Male 05/26/2024 9:59 AM EMAIL MARKETING INTERN Legal Sex Male 8:35 PM CDT Gender [...] Description 09/14/2024 9:20 AM CDT Office Visit [place] [address] [place] [address] Stephanie Connolly FNP [address] [place] [address] [place] [address] 01/05/2025 12:40 PM CDT Office Visit [facility] Nephrology Specialty Clinic [place] [phone] [place] [address] Mini Martell MD 3 [facility], [place] [address] [place] [address] 09/05/2025 10:30 AM CDT Office Visit [facility] [address] [facility] [place] [phone] Trudi Carr ANP-BC [address] [place] [address] [phone] documented as of this encounter Visit Diagnoses Not on filedocumented in this encounter Care Teams Machinist Automotive Relationship Specialty Start Date End Date Stephanie Connolly FNP 201 [place] [address] PCP - General NURSE PRACTITIONER 01/05/18 Guanakito Duarte MD [place] Lode Miner Blasting CARDIOVASCULAR DISEASE 01/15/17 Trudi Carr ANP-BC [address] [place] [address] 47 [place] [address] NURSE PRACTITIONER 01/15/17 Mini Martell MD 200 [place] [address] NEPHROLOGY 04/16/17 documented as of this encounter
== END 2024-09-08 11:01 | disposition home or self-care (01) ==
PROVIDERS: PCP Nurse Practitioner; Visit Provider Neurological Surgery
DX: M47.816 Spondylosis without myelopathy or radiculopathy, lumbar region (principal); M48.16 Ankylosing hyperostosis [Forestier], lumbar region
CPT/HCPCS: 72131

== ENCOUNTER 2024-09-17 13:27 | Inpatient (IN) | payer MEDICARE, BC, SELFPAY ==
--- NOTE | 2024-09-06 11:49 | PC.NURSE ---
Addendum entered by Christin Kelly RN 09/06/24 12:51: CLEAR LIQUIDS OK UP TO 3 HRS PRE-OP/4:30AM, PT RELAYS UNDERSTANDING. Original Note: Report to the Outpatient Waiting Room, entrance under the green pavilion located off [facility], at time ___6:00AM____ on date ___09/17/24____. Planned Procedure Time: ___7:30AM .? Time changes happen often and if your time is changed the preop area will call you the afternoon before. - You and your visitor will be asked to self-screen and do not enter if you have any COVID symptoms. Please call surgeon if you need to reschedule. - A mask is optional within the hospital at this time. Patients may have clear liquids (water, carbonated beverages, clear teas, apple juice) until 3 hours prior to surgery with a maximum of 20 ounces. - No food from midnight until time of surgery and no smoking, or chewing tobacco (or any form of nicotine). No chewing gum, candy or mints. Take only the following medications with a SIP of water on the morning of surgery: ___AMLODIPINE, CARVEDILOL. DO NOT STOP ANY OF YOUR OTHER PRESCRIPTION MEDICATIONS PRIOR TO SURGERY EXCEPT THE FOLLOWING Hold all vitamins and supplements for 3 days per anesthesiologist.(EYE VITAMIN AND VIT D) 3 DAYS PRE-OP- LAST DOSE 09/13/24. Medications to discontinue per physician ____HOLD ELIQUIS(APIXABAN) 3 DAYS PRE-OP PER DR TYSON/DAKSHA STEEN CARDIOVASC Date to take last dose____09/13/24 . HOLD DICLOFENAC CREAM & FISH OIL 7 DAYS PRE-OP PE DR TYSON. LAST DOSE 09/09/24 Please no make-up, nail belarusian, hairspray, perfume, deodorant, or body powder the day of surgery.? No jewelry (including any body piercings) or valuables the day of surgery, leave them at home.? Please take a shower or bath the night before, or the morning of, surgery with an antibacterial soap.? Wear comfortable, loose fitting clothing.? - Jewelry must be removed prior to entering the operating room.? Rings and piercings that are not removed may be cut off. - The hospital will not accept responsibility for valuables.? - Please leave all valuables, including medications, at home the day of surgery. If you are going home after surgery, a licensed helper/driver must drive you home.? - NO public transportation without another adult if you receive anesthesia. - We recommend that an adult stay with you for 24 hours following discharge. - We also recommend that you do not drive, make important decision, drink alcoholic beverages, or take any drugs that were not prescribed by your health care provider for at least 24 hours after your discharge time. Follow any additional instructions given to you from your surgeon. Telephone instructions given to ____PATIENT and asked if any additional questions and then verbalized understanding. Patient advised to call surgeon office or pre surgery nurse liaison [phone] if any additional questions.
[2024-09-06 12:24] VITALS: BP 140/83; PULSE 76; RESP 16; TEMP 36.6; O2SAT 99; BMI 29.3
[2024-09-17] VITALS (14 sets, daily range): BP systolic 91–171; BP diastolic 55–81; PULSE 66–91; RESP 13–21; TEMP 36.4–36.9; O2SAT 93–100; BMI 28.8
--- NOTE | ~2024-09-17 | XR_ITS ---
XR fluoroscopy no charge Indication: L5/S1 posterior lumbar interbody fusion TECHNIQUE: Fluoroscopy used during L5/S1 posterior lumbar interbody fusion performed by [Cade Sung MD] on 09/17/2024. 34 seconds fluoroscopy time with 6 fluoroscopic images captured. FINDINGS: Correlate with procedure note. IMPRESSION: Fluoroscopy used during L5/S1 posterior lumbar interbody fusion. Reviewed, dictated and finalized at location A.
--- OUTSIDE RECORDS SUMMARY | 2024-09-17 01:03 | XMS_ITS | Encounter Summary ---
Author Organization [facility] Address [facility]6 [place] [address] Care Team Providers Care Field Representative Name Role Phone Gerald Bell MD, Robert Unavailable [phone] Trudi Carr [facility]- Unavailable [phone] Mini Martell MD Unavailable [phone] Stephanie Connolly PRODUCE RUNNER Primary Care Provider [phone] Encounter Details Date Type Department Care Team (Late st Contact Info) Description 10/16/2018 Prep for Procedure [facility] Day Services [id number] [place] [address] [place] [address] [facility] [address] [place] [address] Social History Tobacco Use Types Packs/Day Years Used Date Smoking Tobacco: Never Smokeless Tobacco: Never Alcohol Use Standard Drinks/Week Comments Yes 1.7 (1 standard drink = 0.6 oz p ure alcohol) 1-2 drinks weekly Sex and Gender Information Value Date Recorded Sex Assigned at Male 05/26/2024 9:59 AM HAND FRETTED INSTRUMENT MAKER Legal Sex Male 8:35 PM CDT Gender Identity Male 07/26/2019 3:08 PM CDT Sexual Orientation Straight 07/26/2019 3: 08 PM CDT Occupation Industry Job Start Date Job End Date Retired Not on file Not on file Not on file documented as of this encounter Plan of Treatment Upcoming Encounters Date Type Department Care Team (Late st Contact Info) Description 01/05/2025 12:40 PM CDT Office Visit [facility] Nephrology Specialty Clinic [place] [address] [place] [phone] Mini Martell MD [address] [facility] [address], [place] [address] [place] [address] 09/05/2025 10:30 AM CDT Office Visit [facility] [place] [address] Trudi Carr, ANP- [address] [facility] [address] [place] [address] documented as of this encounter Results * ECG 12-Lead (07/20/2019 12:10 PM CDT) 07/20/2019 12:[address] [facility] RAD - 07/21/2019 8:07 AM CDT [facility] Test Date: 2019-07-20 Pat Name: KARTHIK SPENCE Department: Room: Gender: Male Kiln Packer: : 1950 Requested By: DWAYNE OLVERA Order Number: [id number] Reading MD: Guanakito Palencia Measurements Intervals [place] Rate: 80 P: ME: 0 QRS: -23 QRSD: 90 T: 30 QT: 390 QTc: 453 Interpretive Statements ATRIAL FIBRILLATION BORDERLINE LEFT AXIS DEVIATION [QRS AXIS < -20] NONSPECIFIC T-WAVE ABNORMALITY ABNORMAL RHYTHM ECG Compared to ECG 10/26/2018 13:58:32 Ventricular premature complex(es) no longer present Aberrant conduction of supraventricular beat(s) no longer present T-wave abnormality still present Procedure Note Guanakito Palencia MD - 07/21/2019 [facility] Test Date: 2019-07-20 Pat Name: KARTHIK SPENCE Department: Room: Gender: Male Kiln Packer: : 1950 Requested By: DWAYNE OLVERA Order Number: [id number] Reading MD: Guanakito Palencia Measurements Intervals [place] Rate: 80 P: ME: 0 QRS: -23 QRSD: 90 T: 30 QT: 390 QTc: 453 Interpretive Statements ATRIAL FIBRILLATION BORDERLINE LEFT AXIS DEVIATION [QRS AXIS < -20] NONSPECIFIC T-WAVE ABNORMALITY ABNORMAL RHYTHM ECG Compared to ECG 10/26/2018 13:58:32 Ventricular premature complex(es) no longer present Aberrant conduction of supraventricular beat(s) no longer present T-wave abnormality still present us Dwayne Olvera MD ECG ORDERABLES Final Result Performing Organization Address [facility] Co de Phone Number [facility] * MRSA SCREENING (07/20/2019 11:05 AM CDT) SPEC DESCRIPTION NASAL 07/20/2019 10:56 AM CDT [facility] SPECIAL REQUESTS NO SPECIAL REQUEST 07/20/2019 10:56 AM CDT [facility] CULTURE RESULT NO METHICILLIN RESISTANT STAPH AUREUS ISOLATED 07/27/2019 7:26 AM CDT [facility] SPECIMEN FROM INTERNAL NOSE / Unknown 07/20/2019 11:05 AM CDT 07/20/2019 11:06 AM CDT us Dwayne Olvera MD MICROBIOLOGY - GENERAL ORDERABLE S Final Result [facility] [address] [place] [address], [place] [phone] documented in this encounter Visit Diagnoses Diagnosis Preop testing- Primary Preoperative examination, unspecified Preop testing Preoperative examination, unspecified documented in this encounter Care Teams Field Representative Relationship Specialty Start Date End Date Stephanie Connolly FNP [address] [place] [address] PCP - General NURSE PRACTITIONER 01/05/18 Guanakito Duarte MD [place] Supervisor Feed House CARDIOVASCULAR DISEASE 01/15/17 Trudi Carr, [facility]- [address] [place] [address] [address] [place] [address] NURSE PRACTITIONER 01/15/17 Mini Martell MD 200 [place] [address] NEPHROLOGY 04/16/17 documented as of this encounter
--- OUTSIDE RECORDS SUMMARY | 2024-09-17 01:03 | XMS_ITS | Encounter Summary ---
Author Organization [facility] Address [facility]6 [place] [address] Care Team Providers Care Space Physicist Name Role Phone Gerald Bell MD, Robert Unavailable [phone] Trudi Carr ANP- Unavailable [phone] Mini Martell MD Unavailable [phone] Stephanie Connolly STORAGE FACILITY RENTAL CLERK Primary Care Provider [phone] Encounter Details Date Type Department Care Team (Late st Contact Info) Description 10/27/2018 Hospital Follow-up Call [facility] Med/Surg [address] [place] [address] Stephanie Qiu, RN Social History Tobacco Use Types Packs/Day Years Used Date Smoking Tobacco: Never Smokeless Tobacco: Never Alcohol Use Standard Drinks/Week Comments Yes 1.7 (1 standard drink = 0.6 oz p ure alcohol) 1-2 drinks weekly Sex and Gender Information Value Date Recorded Sex Assigned at Male 05/26/2024 9:59 AM REGIONAL LOSS PREVENTION MANAGER Legal Sex Male 8:35 PM CDT [...] Assessment Author Status No 10/22/2018 1:45 PM REINAT Shelly Mathias RN Active * [...] Date Author Status No 10/22/2018 7:51 PM REINAT Shelly [place]ias RN Active documented in this encounter Plan of Treatment Upcoming Encounters Date Type Department Care Team (Late st Contact Info) Description 01/05/2025 12:40 PM CDT Office Visit [facility] Nephrology Specialty Clinic [address] [phone] Mini Martell MD [address] [place] [address] [address] [place] [address] 09/05/2025 10:30 AM CDT Office Visit [facility] [place] [phone] Trudi Carr, ANP- [address] [facility] [address] [place] [phone] documented as of this encounter Visit Diagnoses Not on filedocumented in this encounter Care Teams Space Physicist Relationship Specialty Start Date End Date Stephanie Connolly FNP [address] [place] [address] Dr [place], [place] [phone] PCP - General NURSE PRACTITIONER 01/05/18 Guanakito Duarte MD [place] Spool Salvager CARDIOVASCULAR DISEASE 01/15/17 Trudi Carr, [facility]- [address] [facility] [address] [place] [phone] NURSE PRACTITIONER 01/15/17 Mini Martell MD [address] [place] [phone] NEPHROLOGY 04/16/17 documented as of this encounter
--- OUTSIDE RECORDS SUMMARY | 2024-09-17 01:03 | XMS_ITS | Encounter Summary ---
Author Organization [facility] Address [facility] [place] [address] Care Team Providers Care Aircraft Fueler Name Role Phone Gerald Bell MD, Robert Unavailable [phone] Trudi Carr ANP- Unavailable [phone] Mini Martell MD Unavailable [phone] Stephanie Connolly OUTSIDE DEALER SALES REPRESENTATIVE Primary Care Provider Encounter Details Date Type Department Care Team (Latest Contact Info) Description 09/09/2024 Scan [facility] Scanned, Doc Med Group Social History Tobacco Use Types Packs/Day Years Used Date Smoking Tobacco: Never Smokeless Tobacco: Never Comments:Provider to area counselor Alcohol Use Standard Drinks/Week Comments Not [...] and Family Once a week 07/26/2019 Attends Amish Services Never 07/25 Active Member of Clubs or Organizations No 07/26/2019 Attends Club or Organization Meetings Never 07/26/2019 Marital Status 07/26/2019 Overall Financial Resource Strain (CARDIA) Answe r Date Recorded Difficulty of Paying Living Expenses Not hard at all 07/26/2019 PHQ-2 Answer Date Recorded Patient Health Questionnaire-2 Score 0 03/03/2024 [facility] [place] [facility] Occupat ional Health - Occupational Stress [...] Sex Assigned at Male 05/26/2024 9:59 AM DIGITAL ARCHIVIST Legal Sex Male 8:35 PM CDT Gender [...] 12:40 PM CDT Office Visit [facility] Nephrology Specialty Clinic [address] [phone] Mini Martell MD 3 [facility] [address] [place] [address] 09/05/2025 10:30 AM CDT Office Visit [facility] [place] [phone] Trudi Carr ANP-BC [address] [place] [phone] documented as of this encounter Goals Goal Patient Goal Type Associated Problems Recent Progress Patient-Stated? Author Return home with General No Peggy Kellogg TISSUE TECHNICIAN Return home with General No Peggy Kellogg TISSUE TECHNICIAN documented as of this encounter Visit Diagnoses Not on filedocumented in this encounter Additional Health Concerns Assessment Noted Time PHQ-9 Depression Total Score: 0 03/03/20 10:54 AM CDT documented as of this encounter Care Teams Aircraft Fueler Relationship Specialty Start Date End Date Stephanie Connolly FNP [address] [place] [address] [place] [address] PCP - General NURSE PRACTITIONER 01/05/18 Guanakito Duarte MD [place] Customer Engagement Specialist CARDIOVASCULAR DISEASE 01/15/17 Trudi Carr ANP-BC [address] [phone] NURSE PRACTITIONER 01/15/17 Mini Martell MD [address] [place] [address] NEPHROLOGY 04/16/17 documented as of this encounter
--- OUTSIDE RECORDS SUMMARY | 2024-09-17 01:03 | XMS_ITS | Encounter Summary ---
Author Organization [facility] Address [address] [place] [address] Care Team Providers Care Boat Tender Name Role Phone Gerald Bell MD, Robert Unavailable [phone] Trudi Carr [facility]- Unavailable Mini Martell MD Unavailable [phone] Stephanie Connolly REMELT FURNACE EXPEDITER Primary Care Provider [phone] Encounter Details Date Type Department Care Team (Late st Contact Info) Description 03/17/2018 Abstract [facility] Conversion , Generic MD Jannette Social History Tobacco Use Types Packs/Day Years Used Date Smoking Tobacco: Never Smokeless Tobacco: Never Alcohol Use Standard Drinks/Week Comments Yes 0 (1 standard drink = 0.6 oz pur e alcohol) 2 drink per week Sex and Gender Information Value Date Recorded Sex Assigned at Male 05/26/2024 9:59 AM PRINCIPAL CYBER ENGINEER Legal Sex Male 8:35 PM CDT [...] Description 01/05/2025 12:40 PM CDT Office Visit [facility] [address] [address] Mini Martell MD [address] [facility], [place] [address] [place] [address] 09/05/2025 10:30 AM CDT Office Visit [facility] [address] [place] [address] Trudi Carr ANP-BC [address] [place] [address] [phone] documented as of this encounter Visit Diagnoses Not on filedocumented in this encounter Care Teams Boat Tender Relationship Specialty Start Date End Date Stephanie Connolly FNP [address] [place] [address] PCP - General NURSE PRACTITIONER 01/05/18 Guanakito Duarte MD [place] Payment Manager CARDIOVASCULAR DISEASE 01/15/17 Trudi Carr ANP-BC [address] [place] [address] [phone] NURSE PRACTITIONER 01/15/17 Mini Martell MD [address] [place] [address] NEPHROLOGY 04/16/17 documented as of this encounter
--- OUTSIDE RECORDS SUMMARY | 2024-09-17 01:03 | XMS_ITS | Encounter Summary ---
Author Organization [facility] Address [facility] [place] [address] Care Team Providers Care Surgeon Assistant Name Role Phone Gerald Bell MD, Robert Unavailable [phone] Trudi Carr [facility]- Unavailable [phone] Mini Martell MD Unavailable [phone] Stephanie Connolly MOVING PICTURE PRODUCER Primary Care Provider [phone] Encounter Details Date Type Department Care Team (Late st Contact Info) Description 10/16/2018 Pre-Procedure Call [facility] [address] [place] [address] [place] [address] [facility] [address] [place] [address] Social History Tobacco Use Types Packs/Day Years Used Date Smoking Tobacco: Never Smokeless Tobacco: Never Alcohol Use Standard Drinks/Week Comments Yes 1.7 (1 standard drink = 0.6 oz p ure alcohol) 1-2 drinks weekly Sex and Gender Information Value Date Recorded Sex Assigned at Male 05/26/2024 9:59 AM NEWS AGENT Legal Sex Male 8:35 PM CDT Gender [...] Description 01/05/2025 12:40 PM CDT Office Visit [facility] [place] [id number] [place] [address] Mini Martell MD 3 [facility], [place] [address] [place] [address] 09/05/2025 10:30 AM CDT Office Visit [facility] [address] [place] [phone] Trudi Carr ANP-BC [address] [place] [address] [phone] documented as of this encounter Visit Diagnoses Not on filedocumented in this encounter Care Teams Surgeon Assistant Relationship Specialty Start Date End Date Stephanie Connolly FNP [address] [place] [address] PCP - General NURSE PRACTITIONER 01/05/18 Guanakito Duarte MD [place] Radiator Cleaner CARDIOVASCULAR DISEASE 01/15/17 Trudi Carr ANP-BC [address] [place] [address] [phone] NURSE PRACTITIONER 01/15/17 Mini Martell MD [address] [place], [place] [phone] NEPHROLOGY 04/16/17 documented as of this encounter
--- OUTSIDE RECORDS SUMMARY | 2024-09-17 01:03 | XMS_ITS | Clinical Summary ---
Author Organization [facility] Address [address] [place] [address] Care Team Providers Care Composition Floor Layer Name Role Phone Gerald Bell MD, Robert Unavailable [phone] Trudi Carr ANP- Unavailable [phone] Mini Martell MD Unavailable [phone] Stephanie Connolly [employer] SUPERVISOR Primary Care Provider [phone] Allergies No known active allergies Medications B-D ULTRA-FINE 33 LANCETS MiscIndications:T ype 2 diabetes mellitus with stage 3 chronic kidney disease, without long-term current use of insulin ([facility]) lancets 33 gauge miscellaneous miscuse as directed to test blood sugars BID; Diagnosis: DM type II; 250.00 200 each 2 Active Glucose Blood test stripIndications: Type 2 diabetes mellitus with stage 3 chronic kidney disease, without long-term current use of insulin, unspecified whether stage 3a or 3b CKD ([facility]) 1 strip by Other route 2 (two) times daily. Use to check blood sugar 2 times a day. DX: E11.9 200 strip 2 022 Active Vitamin D3 (VITAMIN D) 50 mcg tablet Take 1 tablet (50 mcg total) by mouth daily. Active Multiple Vitamins-Minerals (VITEYES AREDS FORMULA OR) Take 2 tablets by mouth daily. Active carvedilol (COREG) 3.125 MG tabletIndications :Atrial fibrillation, unspecified type ([facility]) take 1 tablet twice a day 180 tablet 3 024 Active ELIQUIS 5 MG tabletIndications :Atrial fibrillation, unspecified type ([facility]) take 1 tablet twice a day 180 tablet 3 024 Active metFORMIN ER (GLUCOPHAGE-XR) 500 MG 24 hr tabletIndications :Type 2 diabetes mellitus with hyperglycemia, without long-term current use of insulin ([facility]) TAKE 2 TABLETS DAILY BEFORE SUPPER 180 tablet 3 024 Active pravastatin (PRAVACHOL) 80 MG tabletIndications :Mixed hyperlipidemia TAKE 1 TABLET EVERY EVENING 90 tablet 3 024 Active diclofenac sodium (VOLTAREN) 1 % gelIndications:Os teoarthritis of both knees, unspecified osteoarthritis type APPLY 2 GRAMS TO THE AFFECTED AREA TOPICALLY FOUR TIMES A DAY NEEDED 700 g 1 024 Active FARXIGA 10 MG tabletIndications :CKD (chronic kidney disease) stage 4, GFR 15-29 ml/min ([facility]) TAKE 1 TABLET DAILY 90 tablet 3 025 Active gabapentin (NEURONTIN) 100 MG capsuleIndication s:Peripheral polyneuropathy TAKE 1 CAPSULE AT BEDTIME FOR NEUROPATHY PAIN. MAY INCREASE TO 2 CAPSULES AT BEDTIME IN 2 WEEKS IF NEEDED 180 capsule 025 Active traZODone (DESYREL) 100 MG tabletIndications :ENT MANAGES THIS MED. Take 2 tablets (200 mg total) by mouth nightly at bedtime. Indications: ENT MANAGES THIS MED. 025 Active glyBURIDE micronized (GLYNASE) 3 MG TabIndications:Ty pe 2 diabetes mellitus with hyperglycemia, without long-term current use of insulin ([facility]) TAKE 1 TABLET TWICE A DAY WITH MEALS 180 tablet 025 Active dulaglutide (TRULICITY) 3 MG/0.5ML injectionIndicati ons:Type 2 diabetes mellitus with hyperglycemia, without long-term current use of insulin ([facility]) INJECT 3 MG UNDER THE SKIN ONCE A WEEK 6 mL 025 Active omega-3 acid (LOVAZA) 1 GM capsuleIndication s:Mixed hyperlipidemia TAKE 2 CAPSULES TWICE A DAY 360 capsule 025 Active febuxostat (ULORIC) 40 MG tabletIndications :Chronic gout without tophus, unspecified cause, unspecified site TAKE 1 TABLET DAILY 90 tablet 025 Active amLODIPine (NORVASC) 5 MG tabletIndications :Essential hypertension TAKE ONE AND ONE-HALF TABLETS DAILY 135 tablet 025 Active febuxostat (ULORIC) 40 MG tabletIndications :Chronic gout without tophus, unspecified cause, unspecified site TAKE 1 TABLET DAILY 90 tablet 1 024 2024 Discontinued amLODIPine (NORVASC) 5 MG tabletIndications :Essential hypertension TAKE ONE AND ONE-HALF TABLETS DAILY 135 tablet 1 024 2024 Discontinued omega-3 acid (LOVAZA) 1 GM capsuleIndication s:Mixed hyperlipidemia TAKE 2 CAPSULES TWICE A DAY 360 capsule 1 024 2024 Discontinued glyBURIDE micronized (GLYNASE) 3 MG TabIndications:Ty pe 2 diabetes mellitus with hyperglycemia, without long-term current use of insulin ([facility]) Take 1 tablet (3 mg total) by mouth 2 (two) times daily with meals. 180 tablet 1 024 2024 Discontinued dulaglutide (TRULICITY) 3 MG/0.5ML injectionIndicati ons:Type 2 diabetes mellitus with hyperglycemia, without long-term current use of insulin ([facility]) Inject 3 mg into the skin once a week. 12 Pen 1 024 2024 Discontinued Active Problems Problem Noted Date Diagnosed Date Type 2 diabetes mellitus wit h hyperglycemia, without long-term current use of insulin ([facility]) 03/03/2024 Peripheral polyneuropathy 03/03/2024 Screening for colon cancer 07/15/2022 Overview (07/15/2022): Added automatically from request for surgery [id number] History of colonic polyps 07/15/2022 Overview (07/15/2022): Added automatically from request for surgery [id number] CKD (chronic kidney disease) stage 4, GFR 15-29 ml/min ([facility]) 05/01/2021 Hyperkalemia 05/01/2021 Spinal stenosis of lumbar re gion with neurogenic claudication 10/10/2020 Chronic bilateral low back pain without sciatica 10/10/2020 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 ([facility]) 06/27/2020 Abdominal wall hematoma, subsequent encounter Hernia of abdominal cavity 08/06/2019 S/P hernia repair 07/27/2019 Incisional hernia without obstruction or gangren e 06/08/2019 Overview (06/08/2019): Added automatically from request for surgery [id number] Adenoma of transverse colon 10/22/2018 Assessment & [...] apnea) 08/13/2018 RLS (restless legs syndrome) 08/13/2018 Vitamin D insufficiency 05/06/2017 Ventricular enlargement, right 04/29/2017 Diabetic retinopathy ([facility]) 7 Renal osteodystrophy 10/04/2015 Prostatism 05/19/2014 Overview (06/26/2018): Date Onset: 05/19/2014 Erectile dysfunction 03/06/2012 Overview (06/26/2018): Date Onset: 09/06/2011 Gout 09/06/2011 Hyperlipidemia 09/06/2011 Atrial fibrillation ([facility]) Essential hypertension Dyslipidemia Diabetes ([facility]) Mass of colon Coronary artery calcification Resolved Problems Problem Noted Date Diagnosed Date Resolved Date Chronic renal impairment, stage 3a 04/24/2018 09/14/2024 Overview (06/26/2018): Date Onset: 03/14/2016 Encounter for preventive health examination 09/18/2015 01/21/2020 Encounters Date Type Department Care Team Description 09/14/2024 9:20 AM CDT Office Visit [address] [place] [address] Stephanie Connolly FNP Pre-Op Exam (Pt here for surgical pre-op) 09/14/2024 Travel 09/09/2024 Scan [facility] [employer] INFO SRVCS Scanned, [facility] 09/09/[address] [place] [address] Stephanie Connolly FNP Surgical Clearance 09/06/2024 Telephone [facility] [address] [place] [address] Trudi Carr ANP-BC Record Request 09/06/2024 Telephone [facility] [address] [place] [address] Trudi Carr ANP-BC Forms 08/23/2024 10:00 AM CDT Office Visit [facility] [place] [address] Trudi Carr ANP-BC Follow Up 08/23/2024 Travel 08/17/2024 9:24 AM CDT - 08/17/2024 11:59 PM CDT Hospital Encounter [facility] [address] [place] [address] Stephanie Connolly FNP Discharge Disposition: Home or Self Care (Routine Discharge) 08/17/2024 Telephone [facility] [address] [place] [address] Trudi Carr, MIRIAM- Records 08/17/2024 Travel 08/12/2024 Abstract [facility] [address] [place] [address] Stehpanie Connolly, MOSHE 08/02/2024 MyChart Message Enc [facility] [address] [place] [address] Stephanie Connolly, [employer] SUPERVIS[employer] Blood work 08/02/2024 Telephone [facility] [address] [place] [address] [facility] 07/28/2024 Scan HEALTH INFO SRVCS Scanned, [facility] 07/06/2024 8:59 AM RAW JUICE WEIGHER - 07/06/2024 11:59 PM RAW JUICE WEIGHER Hospital Encounter [facility] [address] [place] [address] Vaishnavi Sung MD Discharge Disposition: Home or Self Care (Routine Discharge) 07/06/2024 Travel 07/02/2024 9:50 AM RAW JUICE WEIGHER - 07/02/2024 11:59 PM RAW JUICE WEIGHER Hospital Encounter [facility] [address] [place] [address] Vaishnavi Sung MD Discharge Disposition: Home or Self Care (Routine Discharge) 07/02/2024 Travel from Last 3 Months Immunizations Immunization Administration Dates Next Due Fluzone High Dose (IIV, triv alent, 0.5mL) 03/03/2024 Fluzone High Dose - >Age 65 (Prefilled Syringe) 02/18/2023,03/06/2022,02/21/2021,2019,04/14/2019 Influenza (Generic) 02/25/2018,02/26/2017,2015 Pneumococcal (Generic) 04/24/2016 Pneumococcal (Prevnar 13) 04/14/2019 Pneumococcal (Prevnar 20) 08/25/2023 Shingrix 05/18/2019,03/03/2019 Tdap (Generic) 08/25/2023 Zoster (Zostavax) 51135 Unt/0.65Ml 05/19/2014 Family History Medical History Relation Comments Heart Attack Father Cancer Sister 1 Heart Attack Sister 1 Hypertension Sister 1 Stroke Sister 1 Aneurysm Sister 2 Anesthesia Neg Hx Anesthesia problems Neg Hx Relation Status Comments Father OK age 49 Maternal Grandfather Maternal Grandmother Mother Paternal Grandfather Paternal Grandmother Sister 1 Sister 2 Social History Tobacco Use Types Packs/Day Years Used Date Smoking Tobacco: Never Smokeless Tobacco: Never Tobacco Cessation:Counseling Given: No Comments:Provider to rehabilitation services counselor Alcohol Use Standard Drinks/Week Comments Not [...] Date Recorded Patient Health Questionnaire-2 Score 0 09/14/2024 [facility] - Occupational [...] Sex Assigned at Male 05/26/2024 9:59 AM RAW JUICE WEIGHER Legal Sex Male 8:35 PM CDT Gender Identity Male 07/26/2019 3:08 PM CDT Sexual Orientation Straight 07/26/2019 3: 08 PM CDT Occupation Industry Job Start Date Job End Date Retired Not on file Not on file Not on file Last Filed Vital Signs Vital Sign Reading Time Taken Comments Blood Pressure 136/82 09/14/2024 9:09 AM CDT Pulse 78 09/14/2024 9:09 AM CDT Temperature 37.2 C (98.9 F) 09/14/2024 9:09 AM CDT Respiratory Rate 18 09/14/2024 9:09 AM CDT Oxygen Saturation 98% 09/14/2024 9:09 AM CDT Inhaled Oxygen Concentration - - Weight 90 kg (198 lb 7 oz) 09/14/2024 9:09 AM CD T Height 175.9 cm (5' 9.25 ) 09/14/2024 9:09 AM CD T Body Mass Index 29.09 09/14/2024 9:09 AM CDT Plan of Treatment Upcoming Encounters Date Type Department Care Team (Late st Contact Info) Description 01/05/2025 12:40 PM CDT Office Visit [facility] [address] [address] Mini Martell MD [address] [place] [address] 09/05/2025 10:30 AM CDT Office Visit [facility] [place] [address] Trudi Carr, ANP- [address] [facility] [address] [phone] Health Maintenance Due Date Last Done Comments Annual Medicare Wellness Visit 2016 Diabetes: Retinopathy Eye Exam 11/04/2024 11/05/2023, 04/08/2022, [...] Pneumococcal Vaccine: 50+ Years Completed 08/25/2023, 04/14/2019 PHQ-2 (Physician [place]) Completed 09/14/2024 Meningococcal B Vaccine Aged Out No l [...] [employer] Implanted Type Area Landing Worker Device Identifier Shelf Expiration Date Model / Serial / Lot Mesh Surgical C-Qur Tacshield 8x6in Symmetrical Fixation Apron Sterile Polypropylene [place]-3 Fatty Acid [place] Hernia - [id number] Implanted:Qty: 1 on 07/26/2019 by Darwin Espino MD at [facility] 04/08/2020 [id number] / [id number] / Procedures Procedure Name Priority Date/Time Associated Diagnosis Comments ELECTROCARDIOGRAM (NON MIDMARK ACQUIRED) Routine 08/23/2024 11:13 AM CDT Permanent atrial fibrillation ([facility]/HCC HHS/HCC) Coronary artery calcification COMPREHENSIVE METABOLIC PANEL Routine 08/17/2024 9:34 AM CDT Type 2 diabetes mellitus with stage 3 chronic kidney disease, without long-term current use of insulin, unspecified whether stage 3a or 3b CKD (CMS/HCC HHS/HCC) Essential hypertension Mixed hyperlipidemia Chronic renal impairment, stage 3a (CMS/HCC) HEMOGLOBIN, GLYCOSYLATED Routine 025 9:34 AM CDT Type 2 diabetes mellitus with stage 3 chronic kidney disease, without long-term current use of insulin, unspecified whether stage 3a or 3b CKD (CMS/HCC HHS/HCC) LIPID PANEL Routine 08/17/2024 9:34 AM CDT Type 2 diabetes mellitus with stage 3 chronic kidney disease, without long-term current use of insulin, unspecified whether stage 3a or 3b CKD (CMS/HCC HHS/HCC) Essential hypertension Mixed hyperlipidemia CBC W/DIFF AUTOMATED Routine 08/17/2024 9:34 AM CDT Type 2 diabetes mellitus with stage 3 chronic kidney disease, without long-term current use of insulin, unspecified whether stage 3a or 3b CKD (CMS/HCC HHS/HCC) Essential hypertension Mixed hyperlipidemia Chronic renal impairment, stage 3a (CMS/HCC) CT LUMB SPINE WO CON Routine 07/06/2024 9:14 AM RAW JUICE WEIGHER Spondylosis without myelopathy or radiculopathy, lumbar region XR SCOLIOSIS UPRT OR SUP AP+LAT Routine 07/02/2024 10:39 AM RAW JUICE WEIGHER Lumbar spondylosis XR LUMB SPINE+OBLS 5V Routine 07/02/2024 10:39 AM RAW JUICE WEIGHER Lumbar spondylosis DIABETIC RETINOPATHY EXAM (POSITIVE)(SCAN ORDER) Routine 11/05/2023 HEPATITIS C ANTIBODY Routine 02/18/2023 10:05 AM CDT Need for hepatitis C screening test from Last 3 Months or Most Recently Relevant to Health Maintenance Results * ELECTROCARDIOGRAM (NON MIDMARK ACQUIRED) (08/23/2024 11:13 AM CDT) 08/23/2024 11:1 3 AM CDT Narrative [facility] - 08/26/2024 6:56 [place] [address] Test Date: 2024-08-23 Pat Name: KENTRELL JUNEDEMOND Department: 176 Room: Gender: Male Program Consultant: : 1950 Requested By: TATYANA ALICEA Order Number: [id number] Kendell MD: Osvaldo Coleman Measurements Intervals [place] Rate: 70 P: 0 FL: 0 QRS: -51 QRSD: 102 T: -19 QT: 412 QTc: 446 Interpretive Statements ATRIAL FLUTTER/TACHYCARDIA PATTERN CONSISTENT WITH PULMONARY DISEASE LEFT ANTERIOR FASCICULAR BLOCK Since prior tracing, atrial flutter now present Procedure Note Osvaldo Coleman MD - 08/26/2024 [place] [address] Test Date: 2024-08-23 Pat Name: KENTRELL SPENCE Department: 176 Room: Gender: Male Program Consultant: : 1950 Requested By: TATYANA ALICEA Order Number: [id number] Kendell SANCHEZ: Osvaldo Coleman Measurements Intervals [place] Rate: 70 P: 0 FL: 0 QRS: -51 QRSD: 102 T: -19 QT: 412 QTc: 446 Interpretive Statements ATRIAL FLUTTER/TACHYCARDIA PATTERN CONSISTENT WITH PULMONARY DISEASE LEFT ANTERIOR FASCICULAR BLOCK Since prior tracing, atrial flutter now present us Tatyana Alicea MD PROCEDURES-ORDERABLE NO CHARGE F inal Result [facility] * (ABNORMAL) HEMOGLOBIN, GLYCOSYLATED (08/17/2024 9:34 AM CDT) HGB A1C 6.8(H) <5.7 % 08/18/2024 6:41 AM CDT [facility] Comment: ADA GUIDELINES 2010 5.7 TO 6.4% INCREASED RISK OF DIABETES > OR = 6.5% CONSISTENT WITH DIABETES ESTIMATED AVG GLUCOSE 148 mg/dL 08/18/2024 6:41 AM CDT [facility] 08/17/2024 9:34 AM CDT Stephanie Connolly [facility] Final Result [facility] [address] [place] [address], * (ABNORMAL) COMPREHENSIVE METABOLIC PANEL (08/17/2024 9:34 AM CDT) GLUCOSE 162(H) 70 - 99 MG/DL 08/17/2024 10:37 AM CDT [facility] BUN 28(H) 7 - 18 MG/DL 08/17/2024 10:37 AM CDT [facility] CREATININE S/P/B 1.84(H) 0.50 - 1.20 MG/DL 08/17/2024 10:37 AM CDT [facility] SODIUM S/P/B 139 136 - 145 MMOL/L 08/17/2024 10:37 AM CDT [facility] POTASSIUM S/P/B 4.9 3.5 - 5.1 MMOL/L 08/17/2024 10:37 AM CDT [facility] CHLORIDE S/P/B 102 100 - 108 MMOL/L 08/17/2024 10:37 AM CDT [facility] CO2 28.4 21.0 - 32.0 MMOL/L 08/17/2024 10:37 AM CDT [facility] CALCIUM S/P/B 9.7 8.5 - 10.1 MG/DL 08/17/2024 10:37 AM CDT [facility] BILIRUBIN TOTAL S/P/B 0.7 0.2 - 1.2 MG/DL 08/17/2024 10:37 AM CDT [facility] Comment: THIS ASSAY IS NOT RECOMMENDED FOR PATIENTS UNDERGOING TREATMENT WITH ELTROMBOPAG DUE TO THE POTENTIAL FOR FALSELY ELEVATED RESULTS. TOTAL PROTEIN S/P/B 7.6 6.4 - 8.2 G/DL 08/17/2024 10:37 AM CDT [facility] ALBUMIN S/P/B 3.7 3.4 - 5.0 G/DL 08/17/2024 10:37 AM CDT [facility] AST 20 15 - 37 U/L 08/17/2024 10:37 AM CDT [facility] ALT 34 16 - 60 U/L 08/17/2024 10:37 AM T [facility] ALKALINE PHOSPHATASE S/P/B 81 50 - 136 U/L 08/17/2024 10:37 AM T [facility] ANION GAP 8.6 5.0 - 15.0 MMOL/L 08/17/2024 10:37 AM T [facility] BUN CREATININE RATIO 15.2 6 - 26 08/17/2024 10:37 AM T [facility] A/G RATIO 0.9(L) 1.0 - 2.5 RATIO 08/17/2024 10:37 AM T [facility] GFR ESTIMATE 38(L) >90 ML/MIN/1.7 3 M2 08/17/2024 10:37 AM T [facility] Comment: NOTE: eGFR is not calculated for patients <18 years of age. This is an estimated GFR calculation using the new CKD EPI creatinine equation without race and so does not require a correction factor for race. This estimated GFR should not be used for calculating drug doses. 08/17/2024 9:34 AM CDT Stephanie [facility] Final Result [facility] [address] [place] [address], [place] * (ABNORMAL) LIPID PANEL (08/17/2024 9:34 AM CDT) CHOLESTEROL 131 <200 MG/DL 08/17/2024 1:55 PM CDT [facility] TRIGLYCERIDES 182(H) <150 MG/DL 08/17/2024 1:55 PM CDT [facility] HDL 41 >40.0 MG/DL 08/17/2024 1:55 PM CDT [facility] LDL (CALCULATED) 54 <100 MG/DL 08/17/2024 1:55 PM CDT [facility] NON HDL CHOLESTEROL 90 <130 MG/DL 08/17/2024 1:55 PM CDT [facility] CHOL/HDL RATIO 3.2 0.0 - 4.5 08/17/2024 1:55 PM CDT [facility] VLDL CALCULATION 36 5 - 55 MG/DL 08/17/2024 1:55 PM CDT [facility] LIPID INTERPRETATION 08/17/2024 1:55 PM CDT [facility] Comment: [facility] REPORT RECOMMENDATIONS: ADULT CHILD LOW RISK: CHOLESTEROL <200 <170 TRIGLYCERIDE <150 --- HDL >=60 --- LDL <100 <110 BORDERLINE: CHOLESTEROL 200-239 170-199 TRIGLYCERIDE 150-199 --- HDL 40-59 --- LDL 100-159 110-129 HIGH RISK: CHOLESTEROL >=240 >=200 TRIGLYCERIDE >=200 --- HDL <40 --- LDL >=160 >=130 08/17/2024 9:34 AM CDT us Stephanie Connolly [employer] [facility] Final Result [facility] [address] [place] [address], * CBC W/DIFF AUTOMATED (08/17/2024 9:34 AM CDT) WBC 8.08 4.50 - 11.00 x10'3/uL 08/17/2024 10:06 AM CDT [facility] RBC 5.22 4.50 - 5.90 x10'6/uL 08/17/2024 10:06 AM CDT [facility] HGB 16.2 14.0 - 18.0 G/DL 08/17/2024 10:06 AM CDT [facility] HCT 46.1 43.0 - 54.0 % 08/17/2024 10:06 AM CDT [facility] MCV 88.3 80.0 - 100.0 FL 08/17/2024 10:06 AM CDT [facility] MCH 31.0 26.0 - 34.0 PG 08/17/2024 10:06 AM CDT [facility] MCHC 35.1 31.0 - 37.0 G/DL 08/17/2024 10:06 AM CDT [facility] RDW 13.3 11.6 - 14.8 % 08/17/2024 10:06 AM CDT [facility] PLT 177 130 - 400 x10'3/uL 08/17/2024 10:06 AM CDT [facility] MPV 9.0 7.0 - 12.0 FL 08/17/2024 10:06 AM CDT [facility] CBC COMMENT AUTOMATED RBC MORPHOLOGY AND PLATELET EVALUATION NORMAL 08/17/2024 10:06 AM CDT [facility] NEUTROPHILS % 51.0 40.0 - 74.0 % 08/17/2024 10:06 AM CDT [facility] LYMPHOCYTES % 36.3 14.0 - 46.0 % 08/17/2024 10:06 AM CDT [facility] MONOCYTES % 8.7 4.0 - 13.0 % 08/17/2024 10:06 AM CDT [facility] EOSINOPHILS 3.1 0.0 - 7.0 % 08/17/2024 10:06 AM CDT [facility] BASOPHILS 0.5 0.0 - 3.0 % 08/17/2024 10:06 AM CDT [facility] IMMATURE GRANS % 0.4 0.0 - 0.43 % 08/17/2024 10:06 AM CDT [facility] NRBC % 0.0 % 08/17/2024 10:06 AM CDT [facility] ABS. NEUTROPHILS TOTAL 4.13 1.69 - 7.81 x10'3/uL 08/17/2024 10:06 AM CDT [facility] ABS. LYMPHOCYTES 2.93 0.21 - 5.42 x10'3/uL 08/17/2024 10:06 AM CDT [facility] ABS. MONOCYTES 0.70 0.04 - 1.37 x10'3/uL 08/17/2024 10:06 AM [facility] ABS. EOSINOPHILS 0.25 0.00 - 0.68 x10'3/uL 08/17/2024 10:06 AM CDT [facility] ABS. BASOPHILS 0.04 0.00 - 0.08 x10'3/uL 08/17/2024 10:06 AM T [facility] ABS. IMMATURE GRANULOCYTES 0.03 0.00 - 0.06 x10'3/uL 08/17/2024 10:06 AM T [facility] ABS. NUCLEATED RBC'S 0.00 0.00 - 0.01 x10'3/uL 08/17/2024 10:06 AM [facility] 08/17/2024 9:34 AM CDT us Stephanie K Mohsen [employer] [facility] Final Result [address] [place] [address], [place] * CT LUMB SPINE WO CON (07/06/2024 9:14 AM RAW JUICE WEIGHER) Anatomical Region Laterality Modality Spine Computed Tomogra phy 07/07/2024 8:34 AM RAW JUICE WEIGHER Impressions 07/07/2024 8:42 AM RAW JUICE WEIGHER IMPRESSION: 1. Severe bilateral neural foraminal stenosis [...] 07/07/2024 8:34 AM Narrative 07/07/2024 8:42 AM RAW JUICE WEIGHER [address] [place] [address] EXAMINATION:L[address] without contrast 07/06/2024 INDICATION:Spondylosis without [...] Procedure Note Allan Jurado MD - 07/07/[address] [place] [address] EXAMINATION:Lum[address] without contrast 07/06/2024 INDICATION:Spondylosis without [...] UPRT OR SUP AP+LAT (07/02/2024 10:39 AM RAW JUICE WEIGHER) Anatomical Region Laterality Modality Spine Computed Tomogra phy 07/03/2024 9:52 AM RAW JUICE WEIGHER Impressions 07/03/2024 9:54 AM RAW JUICE WEIGHER IMPRESSION: Minimal gentle dextroconvex curvature thoracic spine. Ordered By: VAISHNAVI SUNG Interpreted By: Daniel Potts MD, 07/03/2024 9:52 AM Narrative 07/03/2024 9:54 AM [employer] J[employer]ICE [employer]IGHER [address] [place] [address] Examination: XR SCOLIOSIS UPRT OR SUP AP+LAT [...] Procedure Note Daniel Potts MD - 07/03/[address] [place] [address] Examination: XR SCOLIOSIS UPRT OR SUP AP+LAT [...] Daniel Potts MD, 07/03/2024 9:52 AM us Vaishanvi Sung MD GENERAL IMAGING Final Res ult * XR LUMB SPINE+OBLS 5V (07/02/2024 10:39 AM RAW JUICE WEIGHER) Anatomical Region Laterality Modality Spine Computed Tomogra phy 07/03/2024 9:56 AM RAW JUICE WEIGHER Impressions 07/03/2024 9:59 AM RAW JUICE WEIGHER IMPRESSION: 1. No acute abnormality. 2. Diffuse degenerative changes. Ordered By: VAISHNAVI SUNG Interpreted By: Daniel Potts MD, 07/03/2024 9:56 AM Narrative 07/03/2024 9:59 AM RAW JUICE WEIGHER [address] [place] [address] Examination: XR LUMB SPINE+OBLS 5V Exam time: [...] Procedure Note Daniel Potts MD - 07/03/[address] [place] [address] Examination: XR LUMB SPINE+OBLS 5V Exam time: [...] SCANNING Final Resu lt Performing Organization Address City/[facility]/ZIP Co de Phone Number [facility] ONBASE * HEPATITIS C AB ([facility] ONLY) (02/18/2023 10:05 AM CDT) HEPATITIS C AB NON-REACTI VE NON-REACTI VE 02/18/2023 3:21 PM CDT [facility] 02/18/2023 10:0 5 AM CDT Stephanie Connolly RUBBER GOODS SUPERVISOR LABORATORY Final Result Performing Organization Address [facility] de Phone Number [facility] [address] [place] [id number], from Last 3 Months or Most Recently Relevant to Health Maintenance Insurance [place] [address] MEDICARE MEDICARE [facility] Advance Directives Documents on File Type Date Recorded 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
--- OUTSIDE RECORDS SUMMARY | 2024-09-17 01:03 | XMS_ITS | Continuity of Care Document ---
Author Organization [facility] [place] Address [address] [facility] [address] Rea [address] [place] [address] Phone Care Team Providers Care Tobacco Scrap Sifter Name Role Phone Denis Rouse MD Unavailable [...] Diagnoses Date Provider Providers Copied on Encounter [facility], [address] [place] [address] [address], [place], [place], [address], tel:[phone] SEC [place] Professional 1 month post op (chief complaint) Surgery follow-up examination 7 Nasim Barrios. [address], [facility] A, [place], [place], [address], [place]. tel:[phone] [facility], [address] [place] [address] [address], [place], [place], [address], [place] tel:[phone] SEC [place] Professional 1 wk CAT PO (chief complaint) Surgery follow-up examination 7 Nasim Barrios. [address], [address], [place], [place], [address], [place]. tel:[phone] [facility], [address], [place], [place], [address], [place] tel:[phone] SEC [place] Professional Post-Op (chief complaint) No Information 7 Joselyn Palafox. [address], [address], [place], [place], [address], [place]. tel:[phone] Referring Provider: Denis Bernal, [address], [place], [address] . tel:[phone] [facility], [address], [place], [place], [address], [place] tel:[phone] [facility] No Information 7 Nasim Barrios. [address], [address] [place] [place], [place], [address], [place]. tel:[phone] Referring Provider: Denis Bernal, [address], [place], [address] . tel:[phone] [facility], [address], [place], [place], [address], [place] tel:[phone] SEC Bimal [address] No Information 7 Nasim Barrios. [address], [address] [place], [place], [address], [place]. tel:[phone] [facility], [address], [place], [place], [address], [place] tel:[phone] SEC Bimal [address] No Information 0 7 Nasim Barrios. [address], [address] [place], [address], [place]. tel:[phone] [facility], [address], [place], [place], [address], [place] tel:[phone] SEC Amrit [place] Professional 1 month post op (chief complaint) No Information 7 Nasim Barrios. [address], [address] [place], [address], [place]. tel:[phone] [facility], [address], [place], [place], [address], tel:[phone] SEC [place] Professional 1 wk PO (chief complaint) No Information 7 Joselyn Palafox. [address], [place], [place], [address], . tel:[phone] Referring Provider: Denis Bernal, [address], [place], [address] . tel:[phone] [facility], [address], [place], [place], [address], tel:[phone] SEC [place] Professional 1 day PO PCIOL (chief complaint) No Information 6 Nasim Barrios. [address], [address] [place], [place], [address], . tel:[phone] Referring Provider: Denis Bernal, [address], [place], [address] . tel:[phone] [facility], [address], [place], [place], [address], [place] tel:[phone] [facility] No Information 6 Nasim Barrios. [address], [address] [place], [place], [address], . tel:[phone] Referring Provider: Denis Bernal, [address] [place], [address] . tel:[phone] [facility], [address], [place], [place], [address], [place] tel:[phone] SEC Bimal N Ty No Information 6 Nasim Barrios. [address], [address] [place], [place], [address], [place]. tel:[phone] Office/outpat ient Visit, Est [facility], [address], [place], [place], [address], [place] tel:[phone] SEC [place] Professional Cataract evaluation (chief complaint) No Information 6 Nasim Barrios. [address], [address] [place], [place], [address], [place]. tel:[phone] Referring Provider: Denis Bernal, [address], [place], [address] . tel:[phone] [facility], [address], [place], [place], [address], [place] tel:[phone] SEC [place] Professional blurry vision (chief complaint) No Information 6 Nasim Barrios. [address], [facility] AGreat [place], [address], [place]. tel:[phone] [facility], [address], [place], [place], [address], [place] tel:[phone] SEC Bimal [place] No Information 6 Nasim Barrios. [address], [address] [place], [place], [address], [place]. tel:[phone] Family History Family Member Type Diagnosis Age At Onset Problem (finding) Family history of Diabe hailee mellitus Sister Problem (finding) crossed eyes Payers Payer name Insurance type Covered republican ID Authoriza tion(s) No Information Social History [...]
--- OUTSIDE RECORDS SUMMARY | 2024-09-17 01:03 | XMS_ITS | Encounter Summary ---
Author Organization [facility] Address [facility] [place] [address] Care Team Providers Care Musical String Maker Name Role Phone Gerald Bell MD, Robert Unavailable [phone] Trudi Carr ANP- Unavailable [phone] Mini Martell MD Unavailable [phone] Stephanie Connolly DYER AND WASHER Primary Care Provider [phone] Encounter Details Date Type Department Care Team (Late st Contact Info) Description 08/06/2023 MyCJDCPhosphatet Message Enc [facility] [address] [place], [place] [id number] Stephanie Connolly FNP [address] [place] [id number] Medication Social History Tobacco Use Types Packs/Day Years Used Date Smoking Tobacco: Never Smokeless Tobacco: Never Comments:Provider to risk reduction counselor Alcohol Use Standard Drinks/Week Comments Yes [...] and Family Once a week 07/26/2019 Attends Yarsanism Services Never 07/25 Active Member of Clubs or Organizations No 07/26/2019 Attends Club or Organization Meetings Never 07/26/2019 Marital Status 07/26/2019 Overall Financial Resource Strain (CARDIA) Answe r Date Recorded Difficulty of Paying Living Expenses Not hard at all 07/26/2019 PHQ-2 Answer Date Recorded Patient Health Questionnaire-2 Score 0 12/26/2022 [facility] - Occupational [...] Sex Assigned at Male 05/26/2024 9:59 AM MILITARY EQUIPMENT SPECIALIST Legal Sex Male 8:35 PM CDT Gender [...] Description 01/05/2025 12:40 PM CDT Office Visit [facility] [place] [address] [place] [address] Mini Martell MD [address] [place] [address], [address] [address] 09/05/2025 10:30 AM CDT Office Visit [facility] [address] [place] [address] Trudi Carr ANP-BC [address] [facility] [address] [place] [address] documented as of this encounter Goals Goal Patient Goal Type Associated Problems Recent Progress Patient-Stated? Author Return home with General No Fldane, Peggy M, FORGE TENDER Return home with General No Flamm, Peggy M, FORGE TENDER documented as of this encounter Visit Diagnoses Not on filedocumented in this encounter Additional Health Concerns Assessment Noted Time PHQ-9 Depression Total Score: 1 12/27/19 21 11:31 AM CDT documented as of this encounter Care Teams Musical String Maker Relationship Specialty Start Date End Date Stephanie Connolly FNP [address] [place] [place] [address] PCP - General NURSE PRACTITIONER 01/05/18 Guanakito Duarte MD [place] [employer] Treatment Operator CARDIOVASCULAR DISEASE 01/15/17 Trudi Carr, MIRIAM-BC [address] [id number] NURSE PRACTITIONER 01/15/17 Mini Martell MD [address] [place] [address] NEPHROLOGY 04/16/17 documented as of this encounter
--- OUTSIDE RECORDS SUMMARY | 2024-09-17 01:03 | XMS_ITS | Encounter Summary ---
Author Organization [facility] Address [facility] [place] [address] Care Team Providers Care Soft Work Wrapper Layer And Examiner Name Role Phone Gerald Bell MD, Robert Unavailable Trudi Carr ANP- Unavailable [phone] Mini Martell MD Unavailable [phone] Stephanie Connolly TEMPERING KILN TENDER Primary Care Provider [phone] Encounter Details Date Type Department Care Team (Latest Contact Info) Description 01/08/2024 MyChart Message Enc [facility] [address] [address] Wisam Hubbard MD [address] [place] [address] Lab service for polyp testing Social History Tobacco Use Types Packs/Day Years Used Date Smoking Tobacco: Never Smokeless Tobacco: Never Comments:Provider to aids counselor Alcohol Use Standard Drinks/Week Comments Yes [...] and Family Once a week 07/26/2019 Attends Confucianism Services Never 07/25 Active Member of Clubs or Organizations No 07/26/2019 Attends Club or Organization Meetings Never 07/26/2019 Marital Status 07/26/2019 Overall Financial Resource Strain (CARDIA) Answe r Date Recorded Difficulty of Paying Living Expenses Not hard at all 07/26/2019 PHQ-2 Answer Date Recorded Patient Health Questionnaire-2 Score 0 12/30/2023 [facility] - Occupational [...] Sex Assigned at Male 05/26/2024 9:59 AM FILM TESTS CHECKER Legal Sex Male 8:35 PM CDT Gender [...] Description 01/05/2025 12:40 PM CDT Office Visit [facility] [place] [address] [place] [address] Mini Martell MD [address] [place] [address] [address] [place], [place] [address] 09/05/2025 10:30 AM CDT Office Visit [facility] [place] [address] Trudi Carr, [facility]- [address] [place] [address] [address] [place] [phone] documented as of this encounter Goals Goal Patient Goal Type Associated Problems Recent Progress Patient-Stated? Author Return home with General No Peggy Kellogg MSW Return home with General No Peggy Kellogg VICE PRESIDENT RESEARCH documented as of this encounter Visit Diagnoses Not on filedocumented in this encounter Additional Health Concerns Assessment Noted Time PHQ-9 Depression Total Score: 1 12/27/19 21 11:31 AM CDT documented as of this encounter Care Teams Soft Work Wrapper Layer And Examiner Relationship Specialty Start Date End Date Stephanie Connolly FNP [address] [place] [address] [address] [place], [place] [id number] PCP - General NURSE PRACTITIONER 01/05/18 Guanakito Duarte MD [place] Wet Pan Mixer CARDIOVASCULAR DISEASE 01/15/17 Trudi Carr [facility]- [address] [facility] [address] [place] [address] NURSE PRACTITIONER 01/15/17 Mini Martell MD [address] [place] [address] NEPHROLOGY 04/16/17 documented as of this encounter
[2024-09-17 06:55] LABS: INR 0.9
--- NOTE | 2024-09-17 07:18 | WPDHPUPDATE1 ---
History and Physical Update Update Date/Time: 09/17/24 07:18 History and Physical has been reviewed, including an updated exam of the patient. There are NO changes in the patient's condition. Risks, benefits, and alternatives have been discussed and questions answered. Patient agrees to proceed with procedure.
--- NOTE | 2024-09-17 07:18 | P.HP_ITS ---
H&P: HPI History of Present Illness Date/Time: 09/17/24 07:18 Chief Complaint: 74 year old male who presents with primarily right sided leg pain found to have a significant pain and lumbar spondylosis at L5/S1. He failed conservative mangement and I offered him an L5/S1 PLIF. Risks and benefits were discussed. Please see my prior notes for more ddetails. [facility] Past Medical History Medical History Kidney disease Diabetes Arthritis Family History Family History Father Heart disease Sibling Heart disease Social History Social History Smoking status: Never smoker Alcohol intake: current Alcohol use details: beer, wine Substance use: never Substance use type: does not use Do You Feel Safe in your Home?: Yes Lack of Transportation: No Lack of Food: Never True Current Housing: I Have Housing Concerned About Future Housing: No Difficulty Paying Gas/Electric Bills: No Difficulty Paying for Meds: No Currently Unemployed: No Education: Associate Degree Difficulty w/ Childcare or Family Care: No Living arrangements: with family Additional living arrangements comments: Spiritual care concerns: No Meds Home Medications and Allergies Home Medications ?Medication ?Instructions ?Recorded ?Confirmed ?Type amlodipine 5 mg tablet 7.5 mg PO QAM 04/30/24 09/06/24 History apixaban 5 mg tablet (Eliquis) 5 mg PO BID 04/30/24 09/06/24 History carvedilol 3.125 mg tablet 3.125 mg PO Q12H 04/30/24 09/06/24 History dapagliflozin propanediol 10 mg 10 mg PO DAILY 04/30/24 09/06/24 History tablet (Farxiga) diclofenac sodium 1 % topical gel 2 g topical QID PRN pain 04/30/24 09/06/24 History (Arthritis Pain (diclofenac)) febuxostat 40 mg tablet 40 mg PO DAILY 04/30/24 09/06/24 History gabapentin 100 mg capsule 200 mg PO QHS PRN pain 04/30/24 09/06/24 History glyburide micronized 3 mg tablet 3 mg PO BID 04/30/24 09/06/24 History metformin 500 mg tablet 1,000 mg PO BID 04/30/24 09/06/24 History omega-3 fatty acids 1,000 mg 2,000 mg PO BID 04/30/24 09/06/24 History capsule pravastatin 80 mg tablet 80 mg PO DAILY 04/30/24 09/06/24 History cholecalciferol (vitamin D3) 50 50 mcg PO DAILY 09/06/24 09/06/24 History mcg (2,000 unit) capsule dulaglutide 3 mg/0.5 mL 3 mg subcut WEEKLY 09/06/24 09/06/24 History subcutaneous pen injector (Trulicity) trazodone 100 mg tablet 200 mg PO HS 09/06/24 09/06/24 History vit C 250 mg-vit E 200 unit-zinc 1 cap PO BID 09/06/24 09/06/24 History ox 12.5 np-hgftxk-mpxfdl-zeax capsule Allergies Allergy/AdvReac Type Severity Reaction Status Date / Time No Known Allergies Allergy Verified 09/06/24 12:00 Exam Narrative: awake alert no acute distress MAEW 5/5 including IP/Q/H/PF/DF/EHL Assessment and Plan Assessment and plan (1) Lumbar spondylosis: Code(s): M47.816 - Spondylosis without myelopathy or radiculopathy, lumbar region Status: Acute Assessment and Plan: Proceed as planned with L5-S1 PLIF
[2024-09-17] MEDS: LACTATED RINGERS 1,000 ML 30 ML IV CONT ×2 (07:40→13:34)
--- NOTE | 2024-09-17 07:42 | P.PNAN_ITS ---
Anes - Initial Pre Proc Eval Procedure: Operation Date: 09/17/24 07:30 Proposed Procedures p Stereotactic Computer-Assisted L5-S1 Posterior Lumbar Interbody Fusion, Posterior Column Osteotomy - Cade Sung MD Date/Time: 09/17/24 07:42 Surgeon: Cade Sung MD Pre Op Diagnosis: lumbar spondolithesis, scoliosis Patient Data Age: 74 Gender: M Height: 1.75 m Weight: 88.6 kg Last Vital Signs Temp 97.8 F 09/17/24 07:37 Pulse 79 09/17/24 07:37 Resp 16 09/06/24 12:24 BP 171/81 H 09/17/24 07:37 Pulse Ox 98 09/17/24 07:37 O2 Del Method Room Air 09/17/24 07:37 Allergies Allergy/AdvReac Type Severity Reaction Status Date / Time No Known Allergies Allergy Verified 09/17/24 07:28 Home Medications ?Medication ?Instructions ?Recorded ?Confirmed ?Type amlodipine 5 mg tablet 7.5 mg PO QAM 04/30/24 09/17/24 History apixaban 5 mg tablet (Eliquis) 5 mg PO BID 04/30/24 09/17/24 History carvedilol 3.125 mg tablet 3.125 mg PO Q12H 04/30/24 09/17/24 History dapagliflozin propanediol 10 mg 10 mg PO DAILY 04/30/24 09/17/24 History tablet (Farxiga) diclofenac sodium 1 % topical gel 2 g topical QID PRN pain 04/30/24 09/17/24 History (Arthritis Pain (diclofenac)) febuxostat 40 mg tablet 40 mg PO DAILY 04/30/24 09/17/24 History gabapentin 100 mg capsule 200 mg PO QHS PRN pain 04/30/24 09/17/24 History glyburide micronized 3 mg tablet 3 mg PO BID 04/30/24 09/17/24 History metformin 500 mg tablet 1,000 mg PO BID 04/30/24 09/17/24 History omega-3 fatty acids 1,000 mg 2,000 mg PO BID 04/30/24 09/17/24 History capsule pravastatin 80 mg tablet 80 mg PO DAILY 04/30/24 09/17/24 History cholecalciferol (vitamin D3) 50 50 mcg PO DAILY 09/06/24 09/17/24 History mcg (2,000 unit) capsule dulaglutide 3 mg/0.5 mL 3 mg subcut WEEKLY 09/06/24 09/17/24 History subcutaneous pen injector (Trulicity) trazodone 100 mg tablet 200 mg PO HS 09/06/24 09/17/24 History vit C 250 mg-vit E 200 unit-zinc 1 cap PO BID 09/06/24 09/17/24 History ox 12.5 vt-zjydrq-ihcvyv-zeax capsule Laboratory Tests 09/17/24 06:35 PT 13.0 Seconds (11.1-14.7) INR 0.9 Patient hx anesthesia problems: none Family hx anesthesia problems: none Results Review: All pre-operative results and documents have been reviewed as part of the pre- operative evaluation. [facility] Past Medical History Medical History Kidney disease Diabetes Arthritis Family History Family History Father Heart disease Sibling Heart disease Social History Social History Smoking status: Never smoker Alcohol intake: current Alcohol use details: beer, wine Substance use: never Substance use type: does not use Do You Feel Safe in your Home?: Yes Lack of Transportation: No Lack of Food: Never True Current Housing: I Have Housing Concerned About Future Housing: No Difficulty Paying Gas/Electric Bills: No Difficulty Paying for Meds: No Currently Unemployed: No Education: Associate Degree Difficulty w/ Childcare or Family Care: No Living arrangements: with family Additional living arrangements comments: Spiritual care concerns: No Anes - Eval Final PreProcedure Day of Procedure 09/17/24 07:42 Patient weight: normal Heart: regular rate and rhythm Lungs: clear to auscultation Airway: Mallampati scale class II Neurological: alert and oriented Last oral intake: >/= 8 hours ASA classification: III Emergent: no Anesthetic plan: proceed Anesthesia type and monitoring: general ETT and standard monitoring Results Review: All pre-operative results and documents have been reviewed as part of the pre- operative evaluation. Informed Consent: The patient's anesthetic plan and its attendant risks and benefits were discussed with the patient/family/POA. Questions were solicited and answers provided to the satisfaction of the patient/family/POA.
[2024-09-17 07:47] LABS: Glucose Point of Care 221 mg/dl (65-105)
[2024-09-17] MEDS: ceFAZolin 2 GM/D5W 50 ML 2 GM/50 ML BAG IVPB ×3 (08:28→23:56)
[2024-09-17] MEDS: BUPIVACAINE/EPINEPHRINE 0.5% 30 ML VIAL INFILTRATE (09:33)
[2024-09-17] MEDS: ceFAZolin SODIUM 1 GM VIAL 2 GM IV PUSH (12:24)
[2024-09-17] MEDS: LACTATED RINGERS 1,000 ML 125 ML IV CONT (13:34)
[2024-09-17 14:25] LABS: Glucose Point of Care 287 mg/dl (65-105)
[2024-09-17] MEDS: CYCLOBENZAPRINE HCL 10 MG TABLET PO ×2 (15:44→21:08)
[2024-09-17] MEDS: HYDROmorphone HCL INJ (*CRX) 2 MG/ML VIAL 0.5 MG IV PUSH ×2 (15:45→23:57)
--- NOTE | 2024-09-17 16:15 | W.PM.PROC2 ---
Procedure Note - Detailed Date of Procedure 09/17/24 Pre-op Diagnosis lumbar spondylosis Post-op Diagnosis Same Procedure Performed L5-S1 posterior lumbar interbody fusion L5-S1 posterior column osteotomy Use of intraoperative navigation Surgeon Cade Sung MD Anesthesia General Indications Systemic 4-year-old gentleman with progressive radiculopathy right greater than left with evidence of an L5-S1 severe spondylosis as well as pre-existing scoliosis Findings Severe foraminal stenosis bilaterally right greater than left Description of Procedure Once all lines were placed the patient was positioned prone on the open Oli table. All bony prominences were padded. Lateral fluoroscopy was brought in to confirm the L5-S1 region and a midline skin incision was marked. Patient was then prepped and draped in the usual sterile fashion. Final time-out was performed indicating correct patient procedure site. I then made a skin incision during the planned incision. Following this i.e. did a subperiosteal dissection to move the muscle and fat off of the spinous processes. I extended this out laterally to the transverse part processes bilaterally. Self-retaining retractors were then placed. I then brought in the a 70 neuro navigation and performed a flash. Once this cut was complete the navigation was tested for accuracy. As an additional stab I brought in fluoroscopy to confirm via lateral fluoroscopy I was at the L5-S1 levels. Using the navigation system I was able to start each screw hole under navigation. Each step was performed under navigation including drilling the initial pilot plant research technician hole as well as tapping with the pedicle finer followed by tapping with a tapping screw. Followed by placement the pedicle screw. In addition each screw was again tested with lateral fluoroscopy to confirm proper position. We placed 6.5 x 45 mm screws at L5 bilaterally and 6.5 x 40 mm screws at S1 bilaterally. Once this was complete the navigation was removed and a lateral and AP x-ray were taken to confirm proper placement of screws. At this point I moved onto the decompression portion of the case. I used a drill to perform bilateral trough laminectomies of L5. I then used into out technique to drill through the pars bilaterally. The facet joint was removed. I also removed the superior and inferior articulating processes at this segment. This was performed bilaterally at L5-S1. At this point I used a Kerrison to remove any additional bone within the foramen up to the pedicle of L5 and S1. All soft tissue was cleared in this area. At this point I was able to confirm the nerves exiting at this level were decompressed. I then proceeded with the placement of the interbody at the right L5-S1. Nerve root retractor was used to remove the thecal sac out of the way I then used bipolar electrocautery to obtain hemostasis and cauterize any veins over the disc space. The disc space was then entered with an 11 blade and then widened with a disc space finer. This was performed under lateral fluoroscopy. I then shaved away the disc and removed any disc material. Then under lateral fluoroscopic guidance I placed a trial and confirmed on x-ray that this was in good position. The trial was then removed and then I packed the disc space full of bone chips. I then placed a 10 mm 26 x 26 mm 7 degree lordotic CoreLink titanium 3D cage under lateral fluoroscopic guidance. This was confirmed to be in proper position and felt very snug. At this point the ldr nurse was removed. Hemostasis was obtained. I then moved on to the arthrodesis portion of the case where I decorticated the transverse processes bilaterally and placed bone graft over this area. I then placed the heads over the screws placed the rods and locked the L5 screws. At this point I used a device to compress the S1 and L5 screws together to final tighten the S1 screw this was performed bilaterally to increase extension at the disc space and complete the posterior column osteotomy. I then used a Brock to feel out laterally within the foramen bilaterally to confirm there was no additional bony spurs that were compressing the nerves. Once this was complete I then again obtained hemostasis. A subcutaneous drain was then placed and the wound was then closed in layers. The patient tolerated the procedure well in terms turned over to Anesthesia for extubation. Implants Orthofix NXG Screws Corellink TI 3D cage Estimated Blood Loss 350 Drains Yes Complications No immediate complications Condition Stable [facility] Billing Surgery - Charge Forward: Surgery Billing
[2024-09-17] MEDS: HYDROcodone/acetaminophen (*CRX) 5-325 MG TABLET 1 TAB PO ×2 (16:43→21:09)
[2024-09-17 16:50] LABS: Glucose Point of Care 229 mg/dl (65-105)
[2024-09-17 19:56] LABS: Glucose Point of Care 272 mg/dl (65-105)
[2024-09-17] MEDS: DOCUSATE SODIUM 100 MG CAPSULE PO (21:09)
[2024-09-17] MEDS: carvediloL 3.125 MG TABLET PO (21:09)
[2024-09-18 00:23] VITALS: BP 121/77; PULSE 76; RESP 16; TEMP 37; O2SAT 96
[2024-09-18 05:39] VITALS: BP 127/77; PULSE 78; RESP 18; TEMP 36.9; O2SAT 97
[2024-09-18] MEDS: HYDROcodone/acetaminophen (*CRX) 5-325 MG TABLET 1 TAB PO ×3 (06:38→16:53)
[2024-09-18] MEDS: CYCLOBENZAPRINE HCL 10 MG TABLET PO ×2 (06:38→09:22)
[2024-09-18 07:24] LABS: Glucose Point of Care 128 mg/dl (65-105)
[2024-09-18 08:00] VITALS: PULSE 87; RESP 18; O2SAT 98
[2024-09-18] MEDS: CHOLECALCIFEROL 1,000 UNITS TABLET 2000 UNITS PO (09:21)
[2024-09-18] MEDS: DOCUSATE SODIUM 100 MG CAPSULE PO (09:22)
[2024-09-18] MEDS: amLODIPine BESYLATE 2.5 MG TABLET 7.5 MG PO (09:22)
[2024-09-18] MEDS: carvediloL 3.125 MG TABLET PO (09:23)
[2024-09-18 09:28] VITALS: BP 100/66; PULSE 84; RESP 18; TEMP 36.1; O2SAT 97
[2024-09-18] MEDS: ceFAZolin 2 GM/D5W 50 ML 2 GM/50 ML BAG IVPB (09:32)
--- NOTE | 2024-09-18 10:12 | WPDNEUROSGPN ---
Progress Note: A&P Assessment and Plan (1) Lumbar spondylosis: Code(s): M47.816 - Spondylosis without myelopathy or radiculopathy, lumbar region Status: Acute Plan Karthik is doing well. If he is able to make confident independent transfers later today he may be discharged home. Otherwise we will keep him to until tomorrow. Subjective Date/time seen: 09/18/24 10:12 Interval history: Karthik is doing well today. He is postop day 1 status post L5-S1 posterior lumbar interbody fusion. He is not complaining of any issues in his lower extremities. His pain is seemingly well controlled. He has been out of bed a few times but always with someone on standby assistance. He is not having any new bowel bladder constitutional or lower extremity symptoms. Exam Narrative: Strength is normal the bilateral lower extremities Sensation is intact light touch in lower extremities His wound is clean, dry and intact. Objective Data Vital Signs Vital Signs: Vital Signs - 24 hr 09/17/24 13:34 09/17/24 13:44 09/17/24 13:45 Temperature 98.4 F Pulse Rate 66 91 Respiratory Rate 19 21 H Blood Pressure 91/57 L 106/56 L Pulse Oximetry 99 100 100 Oxygen Delivery Simple Face Mask Simple Face Mask Simple Face Mask Oxygen Flow Rate 8 8 8 09/17/24 14:00 09/17/24 14:15 09/17/24 14:30 Temperature Pulse Rate 89 89 71 Respiratory Rate 13 18 14 Blood Pressure 121/55 L 121/61 123/61 Pulse Oximetry 100 98 96 Oxygen Delivery Room Air Room Air Room Air Oxygen Flow Rate 09/17/24 14:45 09/17/24 14:55 09/17/24 15:00 Temperature 98.2 F Pulse Rate 70 71 Respiratory Rate 17 17 Blood Pressure 125/67 129/68 Pulse Oximetry 95 93 Oxygen Delivery Room Air Room Air Oxygen Flow Rate 09/17/24 15:10 09/17/24 15:40 09/17/24 16:40 Temperature 98.3 F 97.5 F L 97.9 F Pulse Rate 71 72 75 Respiratory Rate 16 16 16 Blood Pressure 126/67 129/72 138/75 Pulse Oximetry 94 98 97 Oxygen Delivery Oxygen Flow Rate 09/17/24 20:00 09/17/24 21:06 09/17/24 21:09 Temperature 98.3 F Pulse Rate 81 72 Respiratory Rate 18 Blood Pressure 117/73 Pulse Oximetry 100 Oxygen Delivery Room Air Oxygen Flow Rate 09/18/24 00:23 09/18/24 05:39 09/18/24 09:28 Temperature 98.6 F 98.5 F 96.9 F L Pulse Rate 76 78 84 Respiratory Rate 16 18 18 Blood Pressure 121/77 127/77 100/66 Pulse Oximetry 96 97 97 Oxygen Delivery Oxygen Flow Rate Intake/Output Intake/Output: Intake & Output 09/15/24 09/16/24 09/17/24 09/18/24 23:59 23:59 23:59 23:59 Intake Total 1140 740 Output Total 1100 600 Balance 40 140 Meds/Results Medications: Active Medications Generic Name Dose Route Start Last Admin Trade Name Freq PRN Reason Stop Dose Admin Hydrocodone Bitart/Acetaminophen 1 tab 09/17/24 14:49 09/18/24 06:38 Hydrocodone/Acetaminophen (*Crx) 5-325 Mg Tablet PO 1 tab Q4H PRN Administration Mild Pain (1-3) Al Hydrox/Mg Hydrox/Simethicone 20 ml 09/17/24 14:49 Mag Hydrox/Al Hydrox/Simeth 30 Ml Udc PO Q4H PRN Indigestion/Heartburn Amlodipine Besylate 7.5 mg 09/18/24 09:00 09/18/24 09:22 Amlodipine Besylate 2.5 Mg Tablet PO 7.5 mg QAM STEPHEN Administration Bisacodyl 10 mg 09/17/24 14:49 Bisacodyl 10 Mg Suppository RECTAL DAILY PRN Constipation Carvedilol 3.125 mg 09/17/24 21:00 09/18/24 09:23 Carvedilol 3.125 Mg Tablet PO 3.125 mg Q12H STEPHEN Administration Cyclobenzaprine HCl 10 mg 09/17/24 14:49 09/18/24 09:22 Cyclobenzaprine Hcl 10 Mg Tablet PO 10 mg TID PRN Administration Muscle Spasms Dextrose 12.5 gm 09/17/24 13:48 Dextrose 50% 25 Gm/50 Ml Syringe IV PUSH PRN PRN Hypoglycemia Protocol Docusate Sodium 100 mg 09/17/24 21:00 09/18/24 09:22 Docusate Sodium 100 Mg Capsule PO 100 mg Q12HR STEPHEN Administration Glucagon 1 mg 09/17/24 13:48 Glucagon For Inj 1 Mg Vial IM PRN PRN Hypoglycemia Protocol Glucose 15 gm 09/17/24 13:48 Glucose Oral Gel 15 Gm Of Glucse In 37.5 Gm Tube PO PRN PRN Hypoglycemia Protocol Hydromorphone HCl 0.5 mg 09/17/24 15:34 09/17/24 23:57 Hydromorphone Hcl Inj (*Crx) 2 Mg/Ml Vial IV PUSH 0.5 mg Q2H PRN Administration Pain Rated 7-10 Dextrose 1,000 mls @ 100 mls/hr 09/17/24 13:48 Dextrose 5% 1,000 Ml IVPB PRN PRN Hypoglycemia Protocol Ondansetron HCl 4 mg 09/17/24 14:49 Ondansetron Inj 4 Mg/2 Ml Vial IV PUSH Q8H PRN Nausea And Vomiting Senna/Docusate Sodium 1 tab 09/17/24 14:49 Senna/Docusate Sodium Tablet PO HS PRN Constipation Vitamin D 2,000 units 09/18/24 09:00 09/18/24 09:21 Cholecalciferol 1,000 Units Tablet PO 2,000 units DAILY STEPHEN Administration Radiology Results: ITS Impressions Fluoroscopy 09/17/24 15:05 IMPRESSION: Fluoroscopy used during L5/S1 posterior lumbar interbody fusion. Labs Labs: Laboratory Results - last 24 hr 09/17/24 09/17/24 09/17/24 14:22 16:48 19:28 POC Capillary Glucose 287 H 229 H 272 H 09/18/24 07:17 POC Capillary Glucose 128 H
--- NOTE | 2024-09-18 11:17 | WPDANESPN ---
Anes - Prog Note Post-Op Date/Time: 09/18/24 11:17 Cardiovascular status: normal Respiratory status: normal Airway patency: baseline Mental status: baseline Post-Op hydration status: normal Vital Signs: Last Vital Signs Temp 36.1 C L 09/18/24 09:28 Pulse 84 09/18/24 09:28 Resp 18 09/18/24 09:28 BP 100/66 09/18/24 09:28 Pulse Ox 97 09/18/24 09:28 O2 Del Method Room Air 09/17/24 20:00 O2 Flow Rate 8 09/17/24 13:45 Pain Score (VAS): 2 I/O: Intake & Output 09/17/24 09/18/24 09/18/24 23:59 07:59 15:59 Intake Total 290 500 240 Output Total 990 600 Balance -700 -100 240 09/17/24 09/17/24 09/17/24 14:22 16:48 19:28 POC Capillary Glucose 287 H 229 H 272 H 09/18/24 07:17 POC Capillary Glucose 128 H Post-procedural complaints: none Patient Feedback: Patient satisfied with anesthetic care.
[2024-09-18 11:19] LABS: Glucose Point of Care 244 mg/dl (65-105)
[2024-09-18 13:40] VITALS: BP 117/69; PULSE 87; RESP 18; TEMP 37; O2SAT 98
--- NOTE | 2024-09-18 16:24 | PCRCNOTE ---
Patient stated that he doesn't need a CPAP.
--- NOTE | 2024-09-24 10:09 | P.DS_ITS ---
DS: Admitting Diagnosis Discharge Date 09/18/24 Admitting Diagnosis lumbar spondylosis DS: Discharge Diagnosis Discharge Diagnosis (1) Lumbar spondylosis: Code(s): M47.816 - Spondylosis without myelopathy or radiculopathy, lumbar region Status: Acute DS: Summary Hospital Course Hospital Course: the patient underwent a L5-S1 posterior lumbar interbody fusion, and L5-S1 posterior column osteotomy. he tolerated the procedure well without any signif icant difficulty. A drain was placed and postoperatively was monitored for pain control advancing his diet and work with physical therapy he was deemed stable for discharge the following day and was ready to go home at that point. Had complete resolution of his symptoms. Time Spent with Patient Time attestation: Total time spent providing and/or coordinating discharge services: Discharge Plan Discharge Attending physician on discharge: Cade Sung Consulting providers: Tacos Sarabia; Jarek Michael; Tariq Kumar Discharging Clinician: Daniel Chan Patient Disposition: Home Activity: other - see discharge instructions Diet: as tolerated Discharge Instructions: Dr Sung Discharge Instructions Okay to ambulate. Okay to shower. Do not bathe/swim X 6 weeks. No bending, lifting, twisting or lifting heavier than 1 gallon of milk. Use wheel walker for ambulation as needed. Schedule a follow-up clinic appointment in 2 weeks. Patient Instructions: Antibiotic Form, How to Choose and Use a Walker (GEN), Lumbar Spinal Fusion (DC) Patient Language: Kiswahili Stand Alone Forms: General Discharge Information Follow-up/Referrals: Cade Sung MD [Physician] - Discharge Medications: New cyclobenzaprine 5 mg tablet 5 mg PO HS Qty: 30 0RF oxycodone 5 mg tablet 5 mg PO Q4H PRN (Reason: pain) Qty: 32 0RF sennosides [senna] 8.6 mg tablet 8.6 mg PO BID PRN (Reason: constipation) Qty: 30 2RF Continued febuxostat 40 mg tablet 40 mg PO DAILY pravastatin 80 mg tablet 80 mg PO DAILY glyburide micronized 3 mg tablet 3 mg PO BID amlodipine 5 mg tablet 7.5 mg PO QAM metformin 500 mg tablet 1,000 mg PO BID dapagliflozin propanediol [Farxiga] 10 mg tablet 10 mg PO DAILY Patient Comments: QAM gabapentin 100 mg capsule 200 mg PO QHS PRN (Reason: pain) carvedilol 3.125 mg tablet 3.125 mg PO Q12H Rx Instructions: must administer with a meal/food Trulicity 3 mg/0.5 mL pen injector 3 mg SUBCUT WEEKLY Patient Comments: WEDNESDAYS cholecalciferol (vitamin D3) 50 mcg (2,000 unit) capsule 50 mcg PO DAILY trazodone 100 mg tablet 200 mg PO HS vit C-E-zinc is-jhre-jfg-zeax 250 mg-200 unit -12.5 mg-1 mg capsule 1 cap PO BID Held omega-3 fatty acids 1,000 mg capsule 2,000 mg PO BID Hold Instructions: Resume on 09/24/24. Eliquis 5 mg tablet 5 mg PO BID Hold Instructions: Resume on 09/24/24. Discontinued diclofenac sodium [Arthritis Pain (diclofenac)] 1 % gel 2 g topical QID PRN (Reason: pain) Rx Instructions: apply to single elbow, wrist or hand; for hand includes palm/fingers/back of hand Date of admission: 09/17/24 13:27 Primary Care Provider: Mohsen,Stephanie Yusuf Admitting Provider: Cade Sung Attending physician on admission: Daniel Chan Condition: Improved
== END 2024-09-18 18:00 | disposition home or self-care (01) | DRG 451 ==
LOC: ANH3MEDSUR 15:51
PROVIDERS: Admitting Provider Neurological Surgery; PCP Nurse Practitioner; Visit Provider Neurological Surgery
PROC: 0SG30AJ Fusion of Lumbosacral Joint with Interbody Fusion Device, Posterior Approach, Anterior Column, Open Approach (ICD-10-PCS; CPT 22612; principal; 2024-09-17 07:30)
DX: M47.27 Other spondylosis with radiculopathy, lumbosacral region (principal); M48.07 Spinal stenosis, lumbosacral region; E11.9 Type 2 diabetes mellitus without complications; Z79.01 Long term (current) use of anticoagulants
CPT/HCPCS: 36415; 82948; 85610; 97161; 97165; 99199; A9270; C1713; J0690; J1100; J1171; J2003; J2371; J2405; J2704; J3010; J7030; J7120